=== PATIENT | male | born 1980 | race Hispanic/Latino ===

== ENCOUNTER 2016-08-27 16:59 | Inpatient (IN) | payer MEDICAID ==
[2016-08-27 17:02] VITALS: BMI 36.2
[2016-08-27] MEDS ORDERED: Sodium Chloride 0.9% 1,000 ML IV STA (18:11)
--- NOTE | 2016-08-27 18:21 | ED PDOC ---
Arrival/HPI - General Chief Complaint: Lower Extremity Problem/Injury Time Seen by Provider: 08/27/16 17:04 Historian: Patient - History of Present Illness Narrative History of Present Illness (Text): 08/27/16 18:02 A 36 year old male, who denies any significant past medical history, presents to the emergency department complaining of a infection to the left hidalgo. Patient reports 1 week ago he had 2 small blisters, which resembled a burn but then after two days the left hidalgo started to became red, painful and swollen. He notes swelling spread downwards into the left foot and it began to drain a discharge. He denies any fever, chills, chest pain, shortness of breath, abdominal pain, urinary symptoms or any other complaints. Patient does not believe he was bite by any insects but has been taking his mother's zyvox x 4-5 days. Denies IV drug use. PMD: Dr. Brady Time/Duration: 1 week Symptom Onset: Gradual Symptom Course: Worsening Quality: Other Activities at Onset: Rest Context: Home Past Medical History - Provider Review Nursing Documentation Reviewed: Yes - Infectious Disease Hx of Infectious Diseases: None - Cardiac Hx Cardiac Disorders: No - Pulmonary Hx Respiratory Disorders: Yes Hx Pneumonia: Yes (as a child) - Neurological Hx Neurological Disorder: No - HEENT Hx HEENT Disorder: No - Renal Hx Renal Disorder: No - Endocrine/Metabolic Hx Endocrine Disorders: No - Hematological/Oncological Hx Blood Disorders: No - Integumentary Hx Dermatological Disorder: No - Musculoskeletal/Rheumatological Hx Musculoskeletal Disorders: No - Gastrointestinal Hx Gastrointestinal Disorders: No - Genitourinary/Gynecological Hx Genitourinary Disorders: No - Psychiatric Hx Psychophysiologic Disorder: No Hx Substance Use: No - Anesthesia Hx Anesthesia: No Family/Social History - Physician Review Nursing Documentation Reviewed: Yes Family/Social History: Unknown Family HX Smoking Status: Former Smoker Hx Alcohol Use: Yes Frequency of alcohol use: Socially Hx Substance Use: No Allergies/Home Meds Allergies/Adverse Reactions: Allergies No Known Allergies Allergy (Verified 08/27/16 17:02) Home Medications: Home Meds Medication Instructions Recorded Confirmed No Known Home Med 08/27/16 08/27/16 Review of Systems - Physician Review All systems were reviewed & negative as marked: Yes - Review of Systems Constitutional: absent: Fevers Respiratory: absent: SOB Cardiovascular: absent: Chest Pain Gastrointestinal: absent: Abdominal Pain Genitourinary Male: absent: Dysuria, Frequency, Hematuria, Urinary Output Changes Skin: Other (infection to the left calf) Physical Exam Vital Signs Reviewed: Yes Vital Signs Temp Pulse Resp BP Pulse Ox 08/27/16 18:31 99.5 F 08/27/16 17:08 98.8 F 105 H 18 179/112 H 98 Temperature: Afebrile Blood Pressure: Hypertensive Pulse: Tachycardic Respiratory Rate: Normal Appearance: Positive for: Well-Appearing, Non-Toxic, Comfortable Pain Distress: None Mental Status: Positive for: Alert and Oriented X 3 - Systems Exam Head: Present: Atraumatic, Normocephalic Pupils: Present: PERRL Conjunctiva: Present: Normal Mouth: Present: Moist Mucous Membranes Pharnyx: Present: Normal. No: ERYTHEMA, EXUDATE Neck: Present: Normal Range of Motion Respiratory/Chest: Present: Clear to Auscultation, Good Air Exchange. No: Respiratory Distress, Accessory Muscle Use Cardiovascular: Present: Regular Rate and Rhythm, Normal S1, S2. No: Murmurs Abdomen: Present: Normal Bowel Sounds. No: Tenderness, Distention, Peritoneal Signs Back: Present: Normal Inspection Upper Extremity: Present: Normal Inspection. No: Cyanosis, Edema Lower Extremity: Present: NORMAL PULSES, Normal ROM, Tenderness, Swelling, Erythema, Other (There is an area of erythema with tenderness of mid left hidalgo with drainage of pus laterally; the foot is warm, swollen, erythematous, and tender) Neurological: Present: GCS=15, CN II-XII Intact, Speech Normal Skin: Present: Warm, Dry, Normal Color. No: Rashes Psychiatric: Present: Alert, Oriented x 3, Normal Insight, Normal Concentration Medical Decision Making ED Course and Treatment: 08/27/16 18:02 Impression: A 36 year old male with infection to the left calf. Differential Diagnosis include but are not limited to: cellulitis vs abscess vs DVT Plan: -- EKG -- Chest X-ray -- Duplex left lower extremity -- Left foot X-ray -- Left tibia fibula X-ray -- Labs -- Urinalysis -- IV Fluids -- Reassess and disposition Progress Notes: 08/27/16 17:37 LE dopplers: negative for DVT XR: no acute disease, as read by me 08/27/16 19:50 Patient with noted history presenting with cellulitis, having essentially failed outpatient antibiotics therapy, as he took his mother's zyvox. Sed rate is 64; other labs are nondiagnostic. His lactic acid normal, so he does not fit code sepsis criteria. Needs admission for iv antibiotics - discussed with Dr. Ramos. Case also discussed with medical surgical tech for consult for abscess. - Lab Interpretations Lab Results: 08/27/16 18:00 08/27/16 18:00 Lab Results 08/27/16 18:00: Urine Opiates Screen Positive H, Urine Methadone Screen Negative , Ur Barbiturates Screen Negative, Ur Phencyclidine Scrn Negative, Ur Amphetamines Screen Negative, U Benzodiazepines Scrn Positive H, U Oth Cocaine Metabols Negative, U Cannabinoids Screen Negative 08/27/16 18:00: Sodium 138, Chloride 98, Potassium 4.4, Carbon Dioxide 31, Anion Gap 13, BUN 7, Creatinine 0.7, Est GFR ( Amer) > 60, Est GFR (Non- Af Amer) > 60, Random Glucose 177 H, Calcium 9.5, Phosphorus 3.6, Magnesium 2.0 , Total Bilirubin 0.8, AST 43, ALT 40, Alkaline Phosphatase 48, Total Protein 8.7 H, Albumin 4.7, Globulin 4.0, Albumin/Globulin Ratio 1.2, Lipase 71 08/27/16 18:00: pO2 53, VBG pH 7.40, VBG pCO2 52.0, VBG HCO3 32.2 H, VBG Total CO2 33.8 H, VBG O2 Sat (Calc) 91.5 H, VBG Base Excess 6.0 H, VBG Potassium 4.4, Sodium 138.0, Chloride 101.0, Glucose 185 H, Lactate 1.1, FiO2 21.0, Venous Blood Potassium 4.4 08/27/16 18:00: Urine Color Yellow, Urine Appearance Clear, Urine pH 6.5, Ur Specific [place] 1.010, Urine Protein Negative, Urine Glucose (UA) Negative, Urine Ketones Trace H, Urine Blood Large H, Urine Nitrate Negative, Urine Bilirubin Negative, Urine Urobilinogen 0.2, Ur Leukocyte Esterase Negative, Urine RBC 25 - 30, Urine WBC 1 - 3, Ur Epithelial Cells 0 - 2, Amorphous Sediment Trace, Urine Bacteria Many, Urine Other Fiber 08/27/16 18:00: PT 11.3, INR 1.05, APTT 26.9 08/27/16 18:00: WBC 3.0 L, RBC 3.92, Hgb 12.6 L, Hct 36.5 L, MCV 93.1, MCH 32.1 , MCHC 34.5, RDW 11.8, Plt Count 237, MPV 9.6, Gran % 47.7 L, Lymph % (Auto) 23.2, [place] % (Auto) 9.9 H, Eos % (Auto) 17.9 H, Baso % (Auto) 1.3, Gran # 1.44, Lymph # 0.7 L, [place] # 0.3, Eos # 0.5, Baso # 0.04, ESR 64 H I have reviewed the lab results: Yes - RAD Interpretation Radiology Orders: 08/27/16 18:14 CHEST TWO VIEWS (PA/LAT) [RAD] Stat 08/27/16 18:15 FOOT LEFT 3 VIEWS ROUTINE [RAD] Stat TIBIA FIBULA LEFT [RAD] Stat 08/27/16 18:16 DUPLEX LOWER EXTRM VEIN LEFT [US] Stat - Medication Orders Current Medication Orders: Acetaminophen (Tylenol 325 Mg Supp) 325 mg RC Q6 PRN PRN Reason: Fever >100.4 F Albuterol Sulfate (Albuterol 0.083% Inhal [place] (2.5 Mg/3 Ml) Ud) 2.5 mg IH Q2H PRN PRN Reason: Shortness of Breath Famotidine (Pepcid) 20 mg PO BID GWENDOLYN Vancomycin HCl (Vancomycin 1gm) 1 gm in 250 mls @ 133.333 mls/hr IVPB STAT STA PRN Reason: Protocol Stop: 08/27/16 20:24 Last Admin: 08/27/16 19:54 Dose: 133.333 mls/hr Folic Acid 1 mg/ Sodium (Chloride) 50.2 mls @ 200 mls/hr IV DAILY GWENDOLYN Ibuprofen (Motrin Tab) 600 mg PO Q6H PRN PRN Reason: Pain, Mild (1-3) Insulin Human Lispro (Humalog) 0 units SC ACHS GWENDOLYN PRN Reason: Protocol Lisinopril (Zestril) 10 mg PO DAILY GWENDOLYN Thiamine HCl (Vitamin B1 Inj) 100 mg IV DAILY GWENDOLYN Discontinued Medications Sodium Chloride (Sodium Chloride 0.9%) 1,000 mls @ 999 mls/hr IV .Q1H1M STA Stop: 08/27/16 19:11 Last Admin: 08/27/16 18:27 Dose: 999 mls/hr Vancomycin HCl 1 gm/ Sodium (Chloride) 250 mls @ 133.333 mls/hr IV STAT STA PRN Reason: Protocol Stop: 08/27/16 20:18 Last Admin: 08/27/16 19:56 Dose: Piperacillin Sod/Tazobactam Sod (Zosyn 3.375 In Ns 100ml) 100 mls @ 200 mls/hr IVPB STAT STA PRN Reason: Protocol Stop: 08/27/16 18:57 Last Admin: 08/27/16 18:40 Dose: 200 mls/hr - Scribe Statement The provider has reviewed the documentation as recorded by the Adriibjayme Staley Provider Scribe Attestation: All medical record entries made by the Scribe were at my direction and personally dictated by me. I have reviewed the chart and agree that the record accurately reflects my personal performance of the history, physical exam, medical decision making, and the department course for this patient. I have also personally directed, reviewed, and agree with the discharge instructions and disposition. Disposition/Present on Arrival - Present on Arrival Any Indicators Present on Arrival: No History of DVT/PE: No History of Uncontrolled Diabetes: No Urinary Catheter: No History of Decub. Ulcer: No History Surgical Site Infection Following: None - Disposition Have Diagnosis and Disposition been Completed?: Yes Diagnosis: Cellulitis of lower extremity Disposition: HOSPITALIZED Disposition Time: 19:45 Patient Plan: Admission Condition: FAIR Discharge Instructions (ExitCare): Cellulitis (ED) Referrals: Stuart Brady MD [Primary Care Provider] - Follow up with primary
[2016-08-27] MEDS ORDERED: Piperacillin/Tazobact 3.375 gm 100 ML IVPB STA (18:28)
[2016-08-27] MEDS ORDERED: Vancomycin 1gm in NS 250ml 1 GM/250 ML BAG IVPB STA (18:32)
[2016-08-27 18:34] LABS: PH,URINE 6.5 (4.7-8.0); URINE BILIRUBIN NEGATIVE (NEGATIVE); URINE BLOOD LARGE (NEGATIVE); URINE GLUCOSE (UA) NEGATIVE (NEGATIVE); URINE KETONE TRACE mg/dL (NEGATIVE); URINE LEUKOCYTE ESTERASE NEGATIVE Leu/uL (NEGATIVE); URINE PROTEIN NEGATIVE mg/dL (<30 mg/dL); URINE UROBILINOGEN 0.2 E.U./dL (<1 E.U./dL)
[2016-08-27 18:35] LABS: URINE APPEARANCE CLEAR (CLEAR); URINE COLOR YELLOW (YELLOW)
[2016-08-27 18:37] LABS: URINE BACTERIA MANY (NEG); URINE EPITHELIAL CELLS 0 - 2 /hpf (0-5); URINE RBC 25 - 30 /hpf (0-2)
[2016-08-27 18:38] LABS: BASO # 0.04 K/mm3 (0.0-2.0); BASO % 1.3 % (0.0-3.0); EOS # 0.5 (0.0-0.7); EOS % 17.9 % (1.5-5.0); GRAN # 1.44 (1.4-6.5); GRAN % 47.7 % (50.0-68.0); HEMATOCRIT 36.5 % (42.0-52.0); LYMPH # 0.7 (1.2-3.4); LYMPH % 23.2 % (22.0-35.0); MEAN CELL VOLUME 93.1 fL (80.0-105.0); MEAN CORPUSCULAR HEMOGLOBIN 32.1 pg (25.0-35.0); MEAN CORPUSCULAR HGB CONC 34.5 g/dl (31.0-37.0); MEAN PLATELET VOLUME 9.6 fl (7.0-11.0); MONO # 0.3 (0.1-0.6); MONO % 9.9 % (1.0-6.0); PLATELET COUNT 237 10^3/uL (120.0-450.0); RED CELL DISTRIBUTION WIDTH 11.8 % (11.5-14.5); URINE AMORPHOUS SEDIMENT TRACE
[2016-08-27 18:40] LABS: ADD MANUAL DIFF? NO
[2016-08-27 18:44] LABS: ALB/GLOB RATIO 1.2 (1.1-1.8); ALKALINE PHOSPHATASE 48 U/L (38-133); ALT/SGPT 40 U/L (7-56); AST/SGOT 43 U/L (15-59); BILIRUBIN,TOTAL 0.8 mg/dL (0.2-1.3); BLOOD UREA NITROGEN 7 mg/dL (7-21); CALCIUM 9.5 mg/dL (8.4-10.5); CARBON DIOXIDE 31 mmol/L (21-33); CHLORIDE 98 mmol/L (98-107); GFR AFRICAN-AMERICAN > 60; GLUCOSE,RANDOM 177 mg/dL (70-110); LIPASE 71 U/L (23-300); PHOSPHOROUS 3.6 mg/dL (2.5-4.5); POTASSIUM 4.4 mmol/L (3.6-5.0); SODIUM 138 mmol/L (132-148); TOTAL PROTEIN 8.7 g/dL (5.8-8.3)
[2016-08-27 18:47] LABS: INR 1.05 (0.93-1.08); PARTIAL THROMBOPLASTIN TIME 26.9 Seconds (23.7-30.8)
[2016-08-27] MEDS ORDERED: Albuterol 0.083% Inhal Sol (2.5 mg/3 mL) UD IH PRN (19:35)
[2016-08-27 19:41] LABS: ERYTHROCYTE SEDIMENTATION RATE 64 mm/hr (0.0-15.0)
--- NOTE | 2016-08-27 19:56 | CP.PCM.HP ---
Addendum entered and electronically signed by Maximo Haywood DO 08/27/16 20:15: Add to assessment: Anemia; new f/u iron/TIBC folate B12 Original Note: <Maximo Haywood - Last Filed: 08/27/16 19:52> History of Present Illness - History of Present Illness History of Present Illness: CC: LL Pain, swelling, and redness This patient is a 36yo M who has no Pmhx (has not been to the doctor in a long time) who is presenting for a 4d history of LLE swelling and redness. He noticed that he had a small boil on his anterior tibia which he started applying neosporin to, which did not help. His mother had some leftover Zyvox from her previous hospitalization which she lent to her son thinking it would help his infection. He took 2 doses of it. He also took percocet for the pain which he said helped. He denies all other drugs, alcohol, or risky sexual behavior. He states he has unlimited exercise tolerance, sleeps with 2 pillows, and does not wake up in the middle of the night gasping for air. He has been admitted to the hospital in the past, 2x for PNA many years ago. Currently denies any fevers/chills, HAWKINS, CP, SOB, abdominal pain, N/V/D, dysuria/freq/urg. Admits to lower extremity pain and swelling on the left side. Has been admitting to increasing urinary frequency over the past few months; and to feeling the need to "drink a lot of water" due to this. PMhx: None Meds: None Surgeries: none Allergies: none FamHx: DM, HTN on both sides. grandma w/ breast CA, ovarian CA, and lung CA Social: Lives at home with parents, unemployed, denies EtOH, illicit drugs but takes his mothers painkillers and antibiotics, denies risky sexual behavior Present on Admission - Present on Admission Any Indicators Present on Admission: No History of DVT/PE: No History of Uncontrolled Diabetes: No Urinary Catheter: No Decubitus Ulcer Present: No Past Patient History - Infectious Disease Hx of Infectious Diseases: None - Past Social History Smoking Status: Former Smoker - CARDIAC Hx Cardiac Disorders: No - PULMONARY Hx Respiratory Disorders: Yes Hx Pneumonia: Yes (as a child) - NEUROLOGICAL Hx Neurological Disorder: No - HEENT Hx HEENT Problems: No - RENAL Hx Chronic Kidney Disease: No - ENDOCRINE/METABOLIC Hx Endocrine Disorders: No - HEMATOLOGICAL/ONCOLOGICAL Hx Blood Disorders: No - INTEGUMENTARY Hx Dermatological Problems: No - MUSCULOSKELETAL/RHEUMATOLOGICAL Hx Musculoskeletal Disorders: No - GASTROINTESTINAL Hx Gastrointestinal Disorders: No - GENITOURINARY/GYNECOLOGICAL Hx Genitourinary Disorders: No - PSYCHIATRIC Hx Psychophysiologic Disorder: No Hx Substance Use: No - SURGICAL HISTORY Hx Surgeries: No - ANESTHESIA Hx Anesthesia: No Meds Allergies/Adverse Reactions: Allergies Allergy/AdvReac Type Severity Reaction Status Date / Time No Known Allergies Allergy Verified 08/27/16 17:02 Physical Exam - Constitutional Appears: Well, Non-toxic - Head Exam Head Exam: ATRAUMATIC, NORMAL INSPECTION - Eye Exam Eye Exam: EOMI - ENT Exam ENT Exam: Mucous Membranes Moist - Neck Exam Neck exam: Positive for: Full Rom. Negative for: Lymphadenopathy - Respiratory Exam Respiratory Exam: Clear to Auscultation Bilateral, NORMAL BREATHING PATTERN. absent: Rales, Rhonchi, Wheezes - Cardiovascular Exam Cardiovascular Exam: REGULAR RHYTHM, +S1, +S2 - GI/Abdominal Exam GI & Abdominal Exam: Normal Bowel Sounds, Soft. absent: Tenderness - Extremities Exam Extremities exam: Positive for: full ROM, joint swelling, normal capillary refill, pedal edema, pedal pulses present. Negative for: calf tenderness, normal inspection (there is esquisite tenderness on the anterior tibia of the left leg; fluctuance at site where 'boil' was, no pus is coming out, +4 pitting edema on the left, +1 on the right, pulses intact b/l with intact sensation), tenderness - Back Exam Back exam: NORMAL INSPECTION. absent: CVA tenderness (L), CVA tenderness (R) - Neurological Exam Neurological exam: Alert, Oriented x3 - Psychiatric Exam Psychiatric exam: Normal Affect - Skin Skin Exam: Warm Results - Vital Signs Recent Vital Signs: Last Vital Signs Temp 99.5 F 08/27/16 18:31 Pulse 105 H 08/27/16 17:08 Resp 18 08/27/16 17:08 BP 179/112 H 08/27/16 17:08 Pulse Ox 98 08/27/16 17:08 - Labs Result Diagrams: 08/27/16 18:00 08/27/16 18:00 Labs: Laboratory Results - last 24 hr 08/27/16 08/27/16 08/27/16 18:00 18:00 18:00 WBC 3.0 L RBC 3.92 Hgb 12.6 L Hct 36.5 L MCV 93.1 MCH 32.1 MCHC 34.5 RDW 11.8 Plt Count 237 MPV 9.6 Gran % 47.7 L Lymph % (Auto) 23.2 [place] % (Auto) 9.9 H Eos % (Auto) 17.9 H Baso % (Auto) 1.3 Gran # 1.44 Lymph # 0.7 L [place] # 0.3 Eos # 0.5 Baso # 0.04 ESR 64 H PT 11.3 INR 1.05 APTT 26.9 pO2 VBG pH VBG pCO2 VBG HCO3 VBG Total CO2 VBG O2 Sat (Calc) VBG Base Excess VBG Potassium Sodium Chloride Glucose Lactate FiO2 Potassium Carbon Dioxide Anion Gap BUN Creatinine Est GFR ( Amer) Est GFR (Non-Af Amer) Random Glucose Calcium Phosphorus Magnesium Total Bilirubin AST ALT Alkaline Phosphatase Total Protein Albumin Globulin Albumin/Globulin Ratio Lipase Venous Blood Potassium Urine Color Yellow Urine Appearance Clear Urine pH 6.5 Ur Specific [place] 1.010 Urine Protein Negative Urine Glucose (UA) Negative Urine Ketones Trace H Urine Blood Large H Urine Nitrate Negative Urine Bilirubin Negative Urine Urobilinogen 0.2 Ur Leukocyte Esterase Negative Urine RBC 25 - 30 Urine WBC 1 - 3 Ur Epithelial Cells 0 - 2 Amorphous Sediment Trace Urine Bacteria Many Urine Other Fiber Urine Opiates Screen Urine Methadone Screen Ur Barbiturates Screen Ur Phencyclidine Scrn Ur Amphetamines Screen U Benzodiazepines Scrn U Oth Cocaine Metabols U Cannabinoids Screen 08/27/16 08/27/16 08/27/16 18:00 18:00 18:00 WBC RBC Hgb Hct MCV MCH MCHC RDW Plt Count MPV Gran % Lymph % (Auto) [place] % (Auto) Eos % (Auto) Baso % (Auto) Gran # Lymph # [place] # Eos # Baso # ESR PT INR APTT pO2 53 VBG pH 7.40 VBG pCO2 52.0 VBG HCO3 32.2 H VBG Total CO2 33.8 H VBG O2 Sat (Calc) 91.5 H VBG Base Excess 6.0 H VBG Potassium 4.4 Sodium 138.0 138 Chloride 101.0 98 Glucose 185 H Lactate 1.1 FiO2 21.0 Potassium 4.4 Carbon Dioxide 31 Anion Gap 13 BUN 7 Creatinine 0.7 Est GFR ( Amer) > 60 Est GFR (Non-Af Amer) > 60 Random Glucose 177 H Calcium 9.5 Phosphorus 3.6 Magnesium 2.0 Total Bilirubin 0.8 AST 43 ALT 40 Alkaline Phosphatase 48 Total Protein 8.7 H Albumin 4.7 Globulin 4.0 Albumin/Globulin Ratio 1.2 Lipase 71 Venous Blood Potassium 4.4 Urine Color Urine Appearance Urine pH Ur Specific [place] Urine Protein Urine Glucose (UA) Urine Ketones Urine Blood Urine Nitrate Urine Bilirubin Urine Urobilinogen Ur Leukocyte Esterase Urine RBC Urine WBC Ur Epithelial Cells Amorphous Sediment Urine Bacteria Urine Other Urine Opiates Screen Positive H Urine Methadone Screen Negative Ur Barbiturates Screen Negative Ur Phencyclidine Scrn Negative Ur Amphetamines Screen Negative U Benzodiazepines Scrn Positive H U Oth Cocaine Metabols Negative U Cannabinoids Screen Negative Assessment & Plan - Assessment and Plan (Free Text) Assessment: 36yo M admitted for Sepsis 2/2 to Cellulitis of L Lower Extrem Sepsis 2/2 to Cellulitis/Abscess of L Lower Extrem -WBC 3.0, Tachycardic to 105, and sign of infection on exam -Lac 1.1 -ESR 64 -glucuose elevated on exam and with complaints of DM with strong family history ; will treat with Vanc/Zosyn -f/u lower extrem duplex; r/o abscess and DVT -f/u blood cultures -ID Consult; Dr. Wing; f/u recs -Dr. Garland; Gen Surg; f/u recs; will likely need to be drained Likely HTN??? -start lisinopril 10mg tomorrow -PRN PO Hydralazine for BP over 175/95 -f/u echo; b/l lower extrem swollen -f/u BNP Likely DM -RISS; sugar was 180 -f/u HbA1C Proph Pepcid Lovenox Heart Healthy Diet Physical Therapy Eval Case discussed with Dr. Rachel Haywood PGY1 Night Float Decision To Admit - Pt Status Changed To: Hospital Disposition Of: Inpatient Admission - Admit Certification Admit to Inpatient:: After my assessment, the patient will require hospitalization for at least two midnights. This is because of the severity of symptoms shown, intensity of services needed, and/or the medical risk in this patient being treated as an outpatient. - . Bed Request Type: Med/Surg Admitting Physician: Alex Ramos <Alex Ramos - Last Filed: 08/27/16 20:22> Results - Vital Signs Recent Vital Signs: Last Vital Signs Temp 99.5 F 08/27/16 18:31 Pulse 85 08/27/16 18:40 Resp 18 08/27/16 18:40 BP 155/99 H 08/27/16 18:40 Pulse Ox 98 08/27/16 18:40 - Labs Result Diagrams: 08/27/16 18:00 08/27/16 18:00 Attending/Attestation - Attestation I have personally seen and examined this patient.: Yes I have fully participated in the care of the patient.: Yes I have reviewed all pertinent clinical information: Yes
--- NOTE | 2016-08-27 22:01 | CARD ---
APPROVED REPORT EKG Measurement Heart [id number] <Conclusion> Sinus tachycardia Otherwise normal ECG
--- NOTE | 2016-08-27 22:21 | CP.PCM.CON ---
History of Present Illness - History of Present Illness History of Present Illness: General Surgery Consult Re: LLE cellulitis and abscess HPI: 36M presented to ED infection to the left hidalgo for 1 week. Started as 2 small blisters. After 2 days, an area more lateral to the blisters started to get erythematous, painful and edematous. It began to have bloody discharge with some pus. Denies Trauma or insect bite. He tried antibacterial creams and old zyvox of his mothers without improvement. Denies F/C, SOB, chest pain, abd pain , urinary symptoms. PMH: Denies PSH: Denies SH: Denies tobacco or drug use. Occasional EtOH use All: Denies Meds: Denies Review of Systems - Review of Systems All systems: reviewed and no additional remarkable complaints except (as per HPI ) Past Patient History - Infectious Disease Hx of Infectious Diseases: None - Past Social History Smoking Status: Former Smoker - CARDIAC Hx Cardiac Disorders: No - PULMONARY Hx Respiratory Disorders: Yes Hx Pneumonia: Yes (as a child) - NEUROLOGICAL Hx Neurological Disorder: No - HEENT Hx HEENT Problems: No - RENAL Hx Chronic Kidney Disease: No - ENDOCRINE/METABOLIC Hx Endocrine Disorders: No - HEMATOLOGICAL/ONCOLOGICAL Hx Blood Disorders: No - INTEGUMENTARY Hx Dermatological Problems: No - MUSCULOSKELETAL/RHEUMATOLOGICAL Hx Musculoskeletal Disorders: No - GASTROINTESTINAL Hx Gastrointestinal Disorders: No - GENITOURINARY/GYNECOLOGICAL Hx Genitourinary Disorders: No - PSYCHIATRIC Hx Psychophysiologic Disorder: No Hx Substance Use: No - SURGICAL HISTORY Hx Surgeries: No - ANESTHESIA Hx Anesthesia: No Meds Allergies/Adverse Reactions: Allergies Allergy/AdvReac Type Severity Reaction Status Date / Time No Known Allergies Allergy Verified 08/27/16 17:02 - Medications Medications: Current Medications Acetaminophen (Tylenol 325 Mg Supp) 325 mg RC Q6 PRN PRN Reason: Fever >100.4 F Albuterol Sulfate (Albuterol 0.083% Inhal [place] (2.5 Mg/3 Ml) Ud) 2.5 mg IH Q2H PRN PRN Reason: Shortness of Breath Enoxaparin Sodium (Lovenox) 40 mg SC DAILY GWENDOLYN PRN Reason: Protocol Famotidine (Pepcid) 20 mg PO BID GWENDOLYN Hydralazine HCl (Apresoline) 25 mg PO Q4H PRN PRN Reason: high BP Folic Acid 1 mg/ Sodium (Chloride) 50.2 mls @ 200 mls/hr IV DAILY [facility] Piperacillin Sod/Tazobactam Sod (Zosyn 2.25 Gm In 0.9% 100 Ml) 2.25 gm in 100 mls @ 100 mls/hr IVPB Q6 GWENDOLYN PRN Reason: Protocol Stop: 08/28/16 06:59 Vancomycin HCl (Vancomycin 1gm) 1 gm in 250 mls @ 167 mls/hr IVPB 0600,1800 [facility] Ibuprofen (Motrin Tab) 600 mg PO Q6H PRN PRN Reason: Pain, Mild (1-3) Insulin Human Lispro (Humalog) 0 units SC ACHS GWENDOLYN PRN Reason: Protocol Lisinopril (Zestril) 10 mg PO DAILY GWENDOLNY Ondansetron HCl (Zofran Inj) 4 mg IVP Q6H PRN PRN Reason: Nausea/Vomiting Thiamine HCl (Vitamin B1 Tab) 100 mg PO DAILY [facility] Physical Exam - Constitutional Appears: Non-toxic, No Acute Distress - Head Exam Head Exam: ATRAUMATIC, NORMOCEPHALIC - Eye Exam Eye Exam: EOMI. absent: Scleral icterus - ENT Exam ENT Exam: Mucous Membranes Moist Additional comments: trachea midline - Neck Exam Neck exam: Positive for: Full Rom - Respiratory Exam Respiratory Exam: NORMAL BREATHING PATTERN. absent: Respiratory Distress - Cardiovascular Exam Cardiovascular Exam: RRR, +S1, +S2 - GI/Abdominal Exam GI & Abdominal Exam: Soft. absent: Distended, Tenderness - Rectal Exam Rectal Exam: Deferred - Extremities Exam Extremities exam: Positive for: normal capillary refill, pedal edema (L > R), tenderness (of lateral L hidalgo), pedal pulses present Additional comments: 4cm area of fluctuance 8cm area of induration. Clear fluid with white chunks expressed. area of erythema marked from below knee to ankle. - Neurological Exam Neurological exam: Alert, Oriented x3 - Psychiatric Exam Psychiatric exam: Normal Affect, Normal Mood - Skin Skin Exam: Dry, Warm Results - Vital Signs Recent Vital Signs: Last Vital Signs Temp 99.5 F 08/27/16 18:31 Pulse 80 08/27/16 21:03 Resp 17 08/27/16 21:03 BP 154/93 H 08/27/16 21:03 Pulse Ox 99 08/27/16 21:03 - Labs Result Diagrams: 08/27/16 18:00 08/27/16 18:00 - Imaging and Cardiology US - LLE Status: Image reviewed by me Assessment & Plan - Assessment and Plan (Free Text) Assessment: 36M with LLE cellulitis and abscess Plan: Warm compresses IV abx Monitor wound Analgesia Zofran F/U wound culture Attempted Needle aspiration - no pus found D/W Dr. Christofer Lau PGY3
[2016-08-27] MEDS ORDERED: DiphenhydrAMINE 50 mg/ml Inj IVP STA (22:46)
[2016-08-28] MEDS: Insulin Lispro 1 UNITS/0.01 ML SC SCH ×3 (00:07→12:27)
[2016-08-28] MEDS: Piperacillin/Tazobact 2.25gm 2.25 GM/100 ML BAG IVPB SCH ×2 (01:08→06:19)
[2016-08-28] MEDS: Vancomycin 1gm in NS 250ml 1 GM/250 ML BAG IVPB SCH ×2 (06:19→17:46)
[2016-08-28 06:44] LABS: ADD MANUAL DIFF? NO
[2016-08-28 06:48] LABS: BASO # 0.03 K/mm3 (0.0-2.0); BASO % 0.9 % (0.0-3.0); EOS # 0.3 (0.0-0.7); EOS % 9.2 % (1.5-5.0); GRAN # 1.62 (1.4-6.5); GRAN % 48.2 % (50.0-68.0); HEMATOCRIT 33.1 % (42.0-52.0); LYMPH % 29.5 % (22.0-35.0); MEAN CELL VOLUME 92.5 fL (80.0-105.0); MEAN CORPUSCULAR HEMOGLOBIN 32.1 pg (25.0-35.0); MEAN CORPUSCULAR HGB CONC 34.7 g/dl (31.0-37.0); MEAN PLATELET VOLUME 9.1 fl (7.0-11.0); MONO # 0.4 (0.1-0.6); MONO % 12.2 % (1.0-6.0); PLATELET COUNT 217 10^3/uL (120.0-450.0); RED CELL DISTRIBUTION WIDTH 11.6 % (11.5-14.5); WHITE BLOOD COUNT 3.4 10^3/ul (4.5-11.0)
[2016-08-28 07:08] LABS: IRON 112 ug/dL (45-180)
--- NOTE | 2016-08-28 07:56 | RAD ---
PROCEDURE: Radiographs of the left tibia and fibula. HISTORY: L tib/fib infection COMPARISON: None available. TECHNIQUE: Frontal and lateral views obtained. FINDINGS: BONES: No fracture or destructive lesion. JOINT SPACES: Unremarkable. OTHER FINDINGS: Circumferential lower leg subcutaneous reticulated edema. Both lymph edema and cellulitis is consistent with this. No gas-forming cellulitis suggested. IMPRESSION: Subcutaneous diffuse circumferential edema -lymphedema and/or cellulitis. Periosteal reaction seen to suggest osteomyelitis. No gas-forming cellulitis
--- NOTE | 2016-08-28 07:57 | RAD ---
HISTORY: sepsis COMPARISON: No prior. TECHNIQUE: Chest PA and lateral FINDINGS: LUNGS: No active pulmonary disease. PLEURA: No significant pleural effusion identified. No pneumothorax apparent. CARDIOVASCULAR: Normal. OSSEOUS STRUCTURES: No significant abnormalities. VISUALIZED UPPER ABDOMEN: Normal. OTHER FINDINGS: None. IMPRESSION: No active disease.
--- NOTE | 2016-08-28 07:58 | RAD ---
PROCEDURE: Left Foot Radiographs. HISTORY: L foot infection COMPARISON: None. FINDINGS: BONES: Normal. No fracture. No periosteal reaction to suggest osteomyelitis JOINTS: Normal. SOFT TISSUES: Marked dorsal soft tissue swelling mid and forefoot lower leg subcutaneous edema also suggested OTHER FINDINGS: None. IMPRESSION: No periosteal reaction to suggest osteomyelitis. No gas-forming cellulitis. Extensive and diffuse soft tissue swelling most notable dorsum midfoot
[2016-08-28] MEDS ORDERED: Vancomycin 1 g Inj IVPB SCH (08:00)
[2016-08-28 08:03] LABS: ALB/GLOB RATIO 1.1 (1.1-1.8); ALKALINE PHOSPHATASE 38 U/L (38-133); ALT/SGPT 27 U/L (7-56); AST/SGOT 28 U/L (15-59); BILIRUBIN,TOTAL 0.6 mg/dL (0.2-1.3); BLOOD UREA NITROGEN 5 mg/dL (7-21); CALCIUM 8.7 mg/dL (8.4-10.5); CARBON DIOXIDE 30 mmol/L (21-33); CHLORIDE 101 mmol/L (98-107); GFR AFRICAN-AMERICAN > 60; GLUCOSE,RANDOM 137 mg/dL (70-110); POTASSIUM 4.2 mmol/L (3.6-5.0); SODIUM 141 mmol/L (132-148); TOTAL PROTEIN 7.2 g/dL (5.8-8.3)
[2016-08-28] MEDS ORDERED: Lidocaine 1% Inj (20ml) IJ STA (09:03)
--- NOTE | 2016-08-28 09:17 | US ---
PROCEDURE: Left lower extremity venous US HISTORY: Leg pain and swelling. Evaluate for DVT. PHYSICIAN(S): Lee Cooney MD. TECHNIQUE: Duplex sonography and color-flow Doppler with graded compression were used to evaluate the deep venous system of the left lower extremity. FINDINGS: The visualized deep venous system of the left lower extremity is sonographically normal and compressible. Normal wave forms and augmentation are seen. There is no sonographic evidence for deep venous thrombosis in the visualized segments of the left lower extremity. There is a 2.5 cm hypoechoic lymph node in the left inguinal area IMPRESSION: 1. No sonographic evidence for deep venous thrombosis in the visualized segments of the left lower extremity.
[2016-08-28] MEDS ORDERED: Thiamine 100 mg/ml Inj IV SCH (10:00)
[2016-08-28] MEDS: Folic Acid 1 MG in Sodium Chloride 0.9% 50 ML IV SCH (10:11)
[2016-08-28] MEDS: Enoxaparin 40 mg Syringe SC SCH (10:11)
--- NOTE | 2016-08-28 11:10 | CP.PCM.PN ---
Subjective - Date & Time of Evaluation Date of Evaluation: 08/28/16 Time of Evaluation: 08:05 - Subjective Subjective: General surgery progress note for Dr. Beaulieu Patient seen and examined at bedside. No acute events overnight. Patient reports the swelling and redness has improved slightly, but still complains of pain. Denies headache, fever, chills, shortness of breath, chest pain, nausea, vomiting, diarrhea, or urinary symptoms. Objective - Vital Signs/Intake and Output Vital Signs (last 24 hours): Temp Pulse Resp BP Pulse Ox 98.6 F 97 H 20 160/92 H 97 08/28/16 07:46 08/28/16 10:12 08/28/16 07:46 08/28/16 10:12 08/28/16 07:46 Intake and Output: 08/28/16 08/28/16 06:59 18:59 Intake Total 240 Output Total 300 Balance -60 - Medications Medications: Current Medications Acetaminophen (Tylenol 325 Mg Supp) 325 mg RC Q6 PRN PRN Reason: Fever >100.4 F Albuterol Sulfate (Albuterol 0.083% Inhal Lindsay (2.5 Mg/3 Ml) Ud) 2.5 mg IH Q2H PRN PRN Reason: Shortness of Breath Enoxaparin Sodium (Lovenox) 40 mg SC DAILY [facility] PRN Reason: Protocol Last Admin: 08/28/16 10:11 Dose: 40 mg Famotidine (Pepcid) 20 mg PO BID [facility] Last Admin: 08/28/16 10:12 Dose: 20 mg Hydralazine HCl (Apresoline) 25 mg PO Q4H PRN PRN Reason: high BP Folic Acid 1 mg/ Sodium (Chloride) 50.2 mls @ 200 mls/hr IV DAILY [facility] Last Admin: 08/28/16 10:11 Dose: 200 mls/hr Vancomycin HCl (Vancomycin 1gm) 1 gm in 250 mls @ 167 mls/hr IVPB 0600,1800 [facility] Last Admin: 08/28/16 06:19 Dose: 167 mls/hr Piperacillin Sod/Tazobactam Sod (Zosyn 3.375 In Ns 100ml) 100 mls @ 200 mls/hr IVPB Q6 [facility] PRN Reason: Protocol Ibuprofen (Motrin Tab) 600 mg PO Q6H PRN PRN Reason: Pain, Mild (1-3) Insulin Human Lispro (Humalog) 0 units SC ACHS [facility] PRN Reason: Protocol Last Admin: 08/28/16 08:18 Dose: Not Given Lisinopril (Zestril) 10 mg PO DAILY [facility] Last Admin: 08/28/16 10:12 Dose: 10 mg Ondansetron HCl (Zofran Inj) 4 mg IVP Q6H PRN PRN Reason: Nausea/Vomiting Thiamine HCl (Vitamin B1 Tab) 100 mg PO DAILY [facility] Last Admin: 08/28/16 10:12 Dose: 100 mg - Labs Labs: 08/28/16 06:30 08/28/16 07:15 PT 11.3 Seconds (9.9-11.8) 08/27/16 18:00 INR 1.05 (0.93-1.08) 08/27/16 18:00 APTT 26.9 Seconds (23.7-30.8) 08/27/16 18:00 - Constitutional Appears: Non-toxic, No Acute Distress - Head Exam Head Exam: ATRAUMATIC, NORMAL INSPECTION - Eye Exam Eye Exam: EOMI, Normal appearance - ENT Exam ENT Exam: Mucous Membranes Moist - Respiratory Exam Respiratory Exam: NORMAL BREATHING PATTERN. absent: Respiratory Distress - Cardiovascular Exam Cardiovascular Exam: +S1, +S2 - GI/Abdominal Exam GI & Abdominal Exam: Soft. absent: Distended, Tenderness - Extremities Exam Extremities Exam: Normal Capillary Refill Additional comments: LLE erythema and swelling improved compared to marker tracings from yesterday. Area of induration appreciated. Minimal clear fluid drainage appreciated. area of erythema marked from below knee to ankle. - Neurological Exam Neurological Exam: Alert, Awake, Oriented x3 - Psychiatric Exam Psychiatric exam: Normal Affect, Normal Mood - Skin Skin Exam: Warm Assessment and Plan - Assessment and Plan (Free Text) Assessment: 36 male with LLE cellulitis and abscess Plan: -C/w warm compresses -C/w IV abx per ID -F/u wound culture -No pus found through needle aspiration -LE u/s showed no evidence of DVT -Medial management per primary team -Will d/w attending Dr. Beaulieu
[2016-08-28] MEDS: Piperacillin/Tazobact 3.375 gm 100 ML IVPB SCH ×2 (12:28→17:47)
[2016-08-28 12:59] LABS: FOLATE > 20.0 ng/mL
--- NOTE | 2016-08-28 14:09 | CP.PCM.PN ---
<Malou Katz - Last Filed: 08/28/16 14:55> Subjective - Date & Time of Evaluation Date of Evaluation: 08/28/16 Time of Evaluation: 08:00 - Subjective Subjective: Pt was seen and examined at bedside. No acute complaints at this time. No acute or adverse events overnight as per nursing staff. Pt states his pain is controlled, is tolerating po intake and is moving bowels and bladder regularly. Pt noted one episode of loose bm today. Pt denied fever, chills, sob, chest pains, abdominal pains, n/v/d/c or urinary symptoms. Pt admits to mild lle pain and swelling, however it is improved since yesterday. Objective - Vital Signs/Intake and Output Vital Signs (last 24 hours): Temp Pulse Resp BP Pulse Ox 98.6 F 97 H 20 160/92 H 97 08/28/16 07:46 08/28/16 10:12 08/28/16 07:46 08/28/16 10:12 08/28/16 07:46 Intake and Output: 08/28/16 08/28/16 06:59 18:59 Intake Total 240 780 Output Total 300 600 Balance -60 180 - Medications Medications: Current Medications Acetaminophen (Tylenol 325 Mg Supp) 325 mg RC Q6 PRN PRN Reason: Fever >100.4 F Albuterol Sulfate (Albuterol 0.083% Inhal Lindsay (2.5 Mg/3 Ml) Ud) 2.5 mg IH Q2H PRN PRN Reason: Shortness of Breath Enoxaparin Sodium (Lovenox) 40 mg SC DAILY [facility] PRN Reason: Protocol Last Admin: 08/28/16 10:11 Dose: 40 mg Famotidine (Pepcid) 20 mg PO BID [facility] Last Admin: 08/28/16 10:12 Dose: 20 mg Hydralazine HCl (Apresoline) 25 mg PO Q4H PRN PRN Reason: high BP Folic Acid 1 mg/ Sodium (Chloride) 50.2 mls @ 200 mls/hr IV DAILY [facility] Last Admin: 08/28/16 10:11 Dose: 200 mls/hr Vancomycin HCl (Vancomycin 1gm) 1 gm in 250 mls @ 167 mls/hr IVPB 0600,1800 [facility] Last Admin: 08/28/16 06:19 Dose: 167 mls/hr Piperacillin Sod/Tazobactam Sod (Zosyn 3.375 In Ns 100ml) 100 mls @ 200 mls/hr IVPB Q6 [facility] PRN Reason: Protocol Last Admin: 08/28/16 12:28 Dose: 200 mls/hr Ibuprofen (Motrin Tab) 600 mg PO Q6H PRN PRN Reason: Pain, Mild (1-3) Insulin Human Lispro (Humalog) 0 units SC ACHS [facility] PRN Reason: Protocol Last Admin: 08/28/16 12:27 Dose: 3 units Lisinopril (Zestril) 10 mg PO DAILY [facility] Last Admin: 08/28/16 10:12 Dose: 10 mg Ondansetron HCl (Zofran Inj) 4 mg IVP Q6H PRN PRN Reason: Nausea/Vomiting Thiamine HCl (Vitamin B1 Tab) 100 mg PO DAILY [facility] Last Admin: 08/28/16 10:12 Dose: 100 mg - Labs Labs: 08/28/16 06:30 08/28/16 07:15 PT 11.3 Seconds (9.9-11.8) 08/27/16 18:00 INR 1.05 (0.93-1.08) 08/27/16 18:00 APTT 26.9 Seconds (23.7-30.8) 08/27/16 18:00 - Constitutional Appears: No Acute Distress - Head Exam Head Exam: ATRAUMATIC, NORMAL INSPECTION, NORMOCEPHALIC - Eye Exam Eye Exam: EOMI, Normal appearance, PERRL Pupil Exam: NORMAL ACCOMODATION, PERRL - ENT Exam ENT Exam: Mucous Membranes Moist - Neck Exam Neck Exam: Full ROM, Normal Inspection. absent: Lymphadenopathy - Respiratory Exam Respiratory Exam: Clear to Ausculation Bilateral, NORMAL BREATHING PATTERN - Cardiovascular Exam Cardiovascular Exam: REGULAR RHYTHM, +S1, +S2. absent: Murmur - GI/Abdominal Exam GI & Abdominal Exam: Soft, Normal Bowel Sounds. absent: Tenderness - Extremities Exam Extremities Exam: Pedal Edema, Tenderness (lle, bandaged cdi) - Back Exam Back Exam: NORMAL INSPECTION - Neurological Exam Neurological Exam: Alert, Awake, CN II-XII Intact, Oriented x3 - Psychiatric Exam Psychiatric exam: Normal Affect, Normal Mood - Skin Skin Exam: Dry, Intact, Normal Color, Warm Assessment and Plan - Assessment and Plan (Free Text) Assessment: 36yo M admitted for Sepsis 2/2 to Cellulitis of L Lower Extremity Sepsis 2/2 to Cellulitis/Abscess of L Lower Extrem -WBC 3.0, Tachycardic to 105, and sign of infection on exam -Lac 1.1 -ESR 64 - Vanc/Zosyn -negative lower extrem duplex for dvt - f/u blood cultures and wound cultures -ID Consult; Dr. Wing; f/u recs -Dr. Garland; Gen Surg; warm compress and abx, needle aspiration did not demonstrate pus Diarrhea - Cdiff pending HTN -lisinopril 10mg -PRN PO Hydralazine for BP over 175/95 -f/u echo Likely DM -RISS -f/u HbA1C Proph Pepcid Lovenox Heart Healthy Diet Physical Therapy Eval Seen reviewed and discussed with attending <Doug Greene - Last Filed: 08/28/16 15:38> Objective - Vital Signs/Intake and Output Vital Signs (last 24 hours): Temp Pulse Resp BP Pulse Ox 98.6 F 97 H 20 160/92 H 97 08/28/16 07:46 08/28/16 10:12 08/28/16 07:46 08/28/16 10:12 08/28/16 07:46 Intake and Output: 08/28/16 08/28/16 06:59 18:59 Intake Total 240 780 Output Total 300 600 Balance -60 180 - Medications Medications: Current Medications Acetaminophen (Tylenol 325 Mg Supp) 325 mg RC Q6 PRN PRN Reason: Fever >100.4 F Albuterol Sulfate (Albuterol 0.083% Inhal Lindsay (2.5 Mg/3 Ml) Ud) 2.5 mg IH Q2H PRN PRN Reason: Shortness of Breath Enoxaparin Sodium (Lovenox) 40 mg SC DAILY [facility] PRN Reason: Protocol Last Admin: 08/28/16 10:11 Dose: 40 mg Famotidine (Pepcid) 20 mg PO BID [facility] Last Admin: 08/28/16 10:12 Dose: 20 mg Hydralazine HCl (Apresoline) 25 mg PO Q4H PRN PRN Reason: high BP Folic Acid 1 mg/ Sodium (Chloride) 50.2 mls @ 200 mls/hr IV DAILY [facility] Last Admin: 08/28/16 10:11 Dose: 200 mls/hr Vancomycin HCl (Vancomycin 1gm) 1 gm in 250 mls @ 167 mls/hr IVPB 0600,1800 [facility] Last Admin: 08/28/16 06:19 Dose: 167 mls/hr Piperacillin Sod/Tazobactam Sod (Zosyn 3.375 In Ns 100ml) 100 mls @ 200 mls/hr IVPB Q6 [facility] PRN Reason: Protocol Last Admin: 08/28/16 12:28 Dose: 200 mls/hr Ibuprofen (Motrin Tab) 600 mg PO Q6H PRN PRN Reason: Pain, Mild (1-3) Insulin Human Lispro (Humalog Low) 0 units SC ACHS [facility] PRN Reason: Protocol Lisinopril (Zestril) 10 mg PO DAILY [facility] Last Admin: 08/28/16 10:12 Dose: 10 mg Metformin HCl (Glucophage) 500 mg PO BID [facility] Ondansetron HCl (Zofran Inj) 4 mg IVP Q6H PRN PRN Reason: Nausea/Vomiting Thiamine HCl (Vitamin B1 Tab) 100 mg PO DAILY [facility] Last Admin: 08/28/16 10:12 Dose: 100 mg - Labs Labs: 08/28/16 06:30 08/28/16 07:15 PT 11.3 Seconds (9.9-11.8) 08/27/16 18:00 INR 1.05 (0.93-1.08) 08/27/16 18:00 APTT 26.9 Seconds (23.7-30.8) 08/27/16 18:00 Attending/Attestation - Attestation I have personally seen and examined this patient.: Yes I have fully participated in the care of the patient.: Yes I have reviewed all pertinent clinical information, including history, physical exam and plan: Yes Notes (Text): 08/28/16 15:32 36 year old male who is admitted with LLE cellulitis/abscess. Continue with iv antibiotics as per ID. Surgery evaluation was appreciated; needle aspiration did not demonstrate any pus. LE doppler was negative. Xrays were reviewed. Continue with compresses and leg elevation. A1c is 9.1. He is started on glyburide and insulin ss. Diabetic education referral ordered. He is on lisinopril and hydralazine prn for hypertension. Stool for CDif is ordered for complaint of diarrhea. Doug Greene MD Hospitalist.
--- NOTE | 2016-08-28 17:17 | CP.PCM.PN ---
Subjective - Date & Time of Evaluation Date of Evaluation: 08/28/16 Time of Evaluation: 17:15 - Subjective Subjective: Patient consented for bedside I&D for Left Hidalgo abscess Objective - Vital Signs/Intake and Output Vital Signs (last 24 hours): Temp Pulse Resp BP Pulse Ox 99.4 F 90 20 159/91 H 98 08/28/16 16:00 08/28/16 16:36 08/28/16 16:00 08/28/16 16:36 08/28/16 16:00 Intake and Output: 08/28/16 08/28/16 06:59 18:59 Intake Total 240 780 Output Total 300 600 Balance -60 180 - Medications Medications: Current Medications Acetaminophen (Tylenol 325 Mg Supp) 325 mg RC Q6 PRN PRN Reason: Fever >100.4 F Albuterol Sulfate (Albuterol 0.083% Inhal Lindsay (2.5 Mg/3 Ml) Ud) 2.5 mg IH Q2H PRN PRN Reason: Shortness of Breath Enoxaparin Sodium (Lovenox) 40 mg SC DAILY [facility] PRN Reason: Protocol Last Admin: 08/28/16 10:11 Dose: 40 mg Famotidine (Pepcid) 20 mg PO BID [facility] Last Admin: 08/28/16 10:12 Dose: 20 mg Glyburide (Micronase) 5 mg PO 0800,1700 [facility] Last Admin: 08/28/16 16:36 Dose: 5 mg Hydralazine HCl (Apresoline) 25 mg PO Q4H PRN PRN Reason: high BP Last Admin: 08/28/16 16:36 Dose: 25 mg Folic Acid 1 mg/ Sodium (Chloride) 50.2 mls @ 200 mls/hr IV DAILY [facility] Last Admin: 08/28/16 10:11 Dose: 200 mls/hr Vancomycin HCl (Vancomycin 1gm) 1 gm in 250 mls @ 167 mls/hr IVPB 0600,1800 [facility] Last Admin: 08/28/16 06:19 Dose: 167 mls/hr Piperacillin Sod/Tazobactam Sod (Zosyn 3.375 In Ns 100ml) 100 mls @ 200 mls/hr IVPB Q6 [facility] PRN Reason: Protocol Last Admin: 08/28/16 12:28 Dose: 200 mls/hr Ibuprofen (Motrin Tab) 600 mg PO Q6H PRN PRN Reason: Pain, Mild (1-3) Insulin Human Lispro (Humalog Low) 0 units SC ACHS [facility] PRN Reason: Protocol Lisinopril (Zestril) 10 mg PO DAILY [facility] Last Admin: 08/28/16 10:12 Dose: 10 mg Ondansetron HCl (Zofran Inj) 4 mg IVP Q6H PRN PRN Reason: Nausea/Vomiting Thiamine HCl (Vitamin B1 Tab) 100 mg PO DAILY [facility] Last Admin: 08/28/16 10:12 Dose: 100 mg - Labs Labs: 08/28/16 06:30 08/28/16 07:15 PT 11.3 Seconds (9.9-11.8) 08/27/16 18:00 INR 1.05 (0.93-1.08) 08/27/16 18:00 APTT 26.9 Seconds (23.7-30.8) 08/27/16 18:00 Assessment and Plan - Assessment and Plan (Free Text) Assessment: 36 y/o male w/ Left hidalgo abscess Plan: -bedside I&D - Incision & Drainage Of Abscess Anesthesia: Lidocaine 1% Used During Procedure: Oxygen Prep Used: Betadine Procedure: Incised W/Scalpel Blade#: (11), Irrigated Cavity W/Saline, Probed To Break Up Loculations, Packed W/Gauze, Cultures Obtained And Sent To Lab
--- NOTE | 2016-08-28 17:28 | CP.PCM.CON ---
History of Present Illness - History of Present Illness History of Present Illness: Infectious Disease Consultation August 28, 2016 36 yo male with two small boils appearing in the upper left lower leg/ anterior tibia that worsened despite use of Neosporin and special dressing his father had used for healing his prior wounds. Patient's mother had leftover Azithromycin for antibiotics that he took six doses of at 600mg a dose. The patient developed increasing swelling, erythema, and a bump lateral of the two boils. The patient also developed increasing swelling and erythema of the leg below the boils. The patient has not seen a doctor for many many years now since he was 23. PMHx: No known medical history. Noted to have high blood pressure and anemia during this hospitalization PSHx: tooth extractions. Allergies: NKDA Social Hx: NO tobacco, illicit drug use. Social EtOH. Currently Unemployed. Has a dog in the house. Active Medications Acetaminophen (Tylenol 325 Mg Supp) 325 mg RC Q6 PRN PRN Reason: Fever >100.4 F Albuterol Sulfate (Albuterol 0.083% Inhal Lindsay (2.5 Mg/3 Ml) Ud) 2.5 mg IH Q2H PRN PRN Reason: Shortness of Breath Enoxaparin Sodium (Lovenox) 40 mg SC DAILY [facility] PRN Reason: Protocol Last Admin: 08/28/16 10:11 Dose: 40 mg Famotidine (Pepcid) 20 mg PO BID [facility] Last Admin: 08/28/16 10:12 Dose: 20 mg Glyburide (Micronase) 5 mg PO 0800,1700 [facility] Last Admin: 08/28/16 16:36 Dose: 5 mg Hydralazine HCl (Apresoline) 25 mg PO Q4H PRN PRN Reason: high BP Last Admin: 08/28/16 16:36 Dose: 25 mg Folic Acid 1 mg/ Sodium (Chloride) 50.2 mls @ 200 mls/hr IV DAILY [facility] Last Admin: 08/28/16 10:11 Dose: 200 mls/hr Vancomycin HCl (Vancomycin 1gm) 1 gm in 250 mls @ 167 mls/hr IVPB 0600,1800 [facility] Last Admin: 08/28/16 06:19 Dose: 167 mls/hr Piperacillin Sod/Tazobactam Sod (Zosyn 3.375 In Ns 100ml) 100 mls @ 200 mls/hr IVPB Q6 [facility] PRN Reason: Protocol Last Admin: 08/28/16 12:28 Dose: 200 mls/hr Ibuprofen (Motrin Tab) 600 mg PO Q6H PRN PRN Reason: Pain, Mild (1-3) Insulin Human Lispro (Humalog Low) 0 units SC ACHS [facility] PRN Reason: Protocol Lisinopril (Zestril) 10 mg PO DAILY [facility] Last Admin: 08/28/16 10:12 Dose: 10 mg Ondansetron HCl (Zofran Inj) 4 mg IVP Q6H PRN PRN Reason: Nausea/Vomiting Thiamine HCl (Vitamin B1 Tab) 100 mg PO DAILY [facility] Last Admin: 08/28/16 10:12 Dose: 100 mg Family Hx: DM and HTN in mother and father. Breast, Ovarian, and Lung CA in grandmother. ROS: No fevers, chills, nausea, vomiting, diarrhea, headaches, dizziness, chest pain , abdominal pain, melena, hematuria, hematemesis, hematochezia, depression, anxiety. Past Patient History - Infectious Disease Hx of Infectious Diseases: None - Past Social History Smoking Status: Former Smoker - CARDIAC Hx Cardiac Disorders: No - PULMONARY Hx Respiratory Disorders: Yes Hx Emphysema: Yes (as a child) - NEUROLOGICAL Hx Neurological Disorder: No - HEENT Hx HEENT Problems: Yes Other/Comment: pt wears glasses - RENAL Hx Chronic Kidney Disease: No - ENDOCRINE/METABOLIC Hx Endocrine Disorders: Yes Hx Diabetes Mellitus Type 2: Yes - HEMATOLOGICAL/ONCOLOGICAL Hx Blood Disorders: No - INTEGUMENTARY Hx Dermatological Problems: No - MUSCULOSKELETAL/RHEUMATOLOGICAL Hx Musculoskeletal Disorders: No Hx Falls: No - GASTROINTESTINAL Hx Gastrointestinal Disorders: No - GENITOURINARY/GYNECOLOGICAL Hx Genitourinary Disorders: No - PSYCHIATRIC Hx Psychophysiologic Disorder: No Hx Substance Use: No - SURGICAL HISTORY Hx Surgeries: No - ANESTHESIA Hx Anesthesia: No Meds Allergies/Adverse Reactions: Allergies Allergy/AdvReac Type Severity Reaction Status Date / Time No Known Allergies Allergy Verified 08/27/16 17:02 - Medications Medications: Current Medications Acetaminophen (Tylenol 325 Mg Supp) 325 mg RC Q6 PRN PRN Reason: Fever >100.4 F Albuterol Sulfate (Albuterol 0.083% Inhal Lindsay (2.5 Mg/3 Ml) Ud) 2.5 mg IH Q2H PRN PRN Reason: Shortness of Breath Enoxaparin Sodium (Lovenox) 40 mg SC DAILY [facility] PRN Reason: Protocol Last Admin: 08/28/16 10:11 Dose: 40 mg Famotidine (Pepcid) 20 mg PO BID [facility] Last Admin: 08/28/16 10:12 Dose: 20 mg Glyburide (Micronase) 5 mg PO 0800,1700 [facility] Last Admin: 08/28/16 16:36 Dose: 5 mg Hydralazine HCl (Apresoline) 25 mg PO Q4H PRN PRN Reason: high BP Last Admin: 08/28/16 16:36 Dose: 25 mg Folic Acid 1 mg/ Sodium (Chloride) 50.2 mls @ 200 mls/hr IV DAILY [facility] Last Admin: 08/28/16 10:11 Dose: 200 mls/hr Vancomycin HCl (Vancomycin 1gm) 1 gm in 250 mls @ 167 mls/hr IVPB 0600,1800 [facility] Last Admin: 08/28/16 06:19 Dose: 167 mls/hr Piperacillin Sod/Tazobactam Sod (Zosyn 3.375 In Ns 100ml) 100 mls @ 200 mls/hr IVPB Q6 [facility] PRN Reason: Protocol Last Admin: 08/28/16 12:28 Dose: 200 mls/hr Ibuprofen (Motrin Tab) 600 mg PO Q6H PRN PRN Reason: Pain, Mild (1-3) Insulin Human Lispro (Humalog Low) 0 units SC ACHS [facility] PRN Reason: Protocol Lisinopril (Zestril) 10 mg PO DAILY [facility] Last Admin: 08/28/16 10:12 Dose: 10 mg Ondansetron HCl (Zofran Inj) 4 mg IVP Q6H PRN PRN Reason: Nausea/Vomiting Thiamine HCl (Vitamin B1 Tab) 100 mg PO DAILY [facility] Last Admin: 08/28/16 10:12 Dose: 100 mg Physical Exam - Constitutional Appears: Non-toxic, No Acute Distress - Head Exam Head Exam: ATRAUMATIC, NORMOCEPHALIC - Eye Exam Eye Exam: EOMI, PERRL Pupil Exam: NORMAL ACCOMODATION, PERRL - ENT Exam ENT Exam: Mucous Membranes Moist, Normal External Ear Exam, TM's Normal Bilaterally - Neck Exam Neck exam: Positive for: Full Rom, Normal Inspection - Respiratory Exam Respiratory Exam: Clear to Auscultation Bilateral, NORMAL BREATHING PATTERN. absent: Rales, Rhonchi, Wheezes - Cardiovascular Exam Cardiovascular Exam: REGULAR RHYTHM, RRR, +S1, +S2 - GI/Abdominal Exam GI & Abdominal Exam: Normal Bowel Sounds, Soft. absent: Distended, Tenderness - Extremities Exam Extremities exam: Positive for: full ROM Additional comments: left lower leg erythema and possible abscess on tissue over lateral anterior upper tibia. Increased warmth of the left lower lateral leg. - Neurological Exam Neurological exam: Alert, CN II-XII Intact, Normal Gait, Oriented x3 - Psychiatric Exam Psychiatric exam: Normal Affect, Normal Mood - Skin Additional comments: as per extremities exam. Results - Vital Signs Recent Vital Signs: Last Vital Signs Temp 99.4 F 08/28/16 16:00 Pulse 90 08/28/16 16:36 Resp 20 08/28/16 16:00 BP 159/91 H 08/28/16 16:36 Pulse Ox 98 08/28/16 16:00 - Labs Result Diagrams: 08/28/16 06:30 08/28/16 07:15 Labs: Laboratory Results - last 24 hr 08/28/16 08/28/16 08/28/16 06:30 06:30 06:30 WBC 3.4 L RBC 3.58 Hgb 11.5 L Hct 33.1 L MCV 92.5 MCH 32.1 MCHC 34.7 RDW 11.6 Plt Count 217 MPV 9.1 Gran % 48.2 L Lymph % (Auto) 29.5 Hunt % (Auto) 12.2 H Eos % (Auto) 9.2 H Baso % (Auto) 0.9 Gran # 1.62 Lymph # 1.0 L Hunt # 0.4 Eos # 0.3 Baso # 0.03 Sodium Potassium Chloride Carbon Dioxide Anion Gap BUN Creatinine Est GFR ( Amer) Est GFR (Non-Af Amer) Random Glucose Calcium Iron 112 TIBC 260 L % Saturation 43 Total Bilirubin AST ALT Alkaline Phosphatase Total Protein Albumin Globulin Albumin/Globulin Ratio Vitamin B12 571 Folate > 20.0 08/28/16 07:15 WBC RBC Hgb Hct MCV MCH MCHC RDW Plt Count MPV Gran % Lymph % (Auto) Hunt % (Auto) Eos % (Auto) Baso % (Auto) Gran # Lymph # Hunt # Eos # Baso # Sodium 141 Potassium 4.2 Chloride 101 Carbon Dioxide 30 Anion Gap 14 BUN 5 L Creatinine 0.6 Est GFR ( Amer) > 60 Est GFR (Non-Af Amer) > 60 Random Glucose 137 H Calcium 8.7 Iron TIBC % Saturation Total Bilirubin 0.6 AST 28 ALT 27 Alkaline Phosphatase 38 Total Protein 7.2 Albumin 3.8 Globulin 3.4 Albumin/Globulin Ratio 1.1 Vitamin B12 Folate Assessment & Plan - Assessment and Plan (Free Text) Assessment: 36 yo male with left lower leg cellulitis and abscess formation. I&D by surgery today with minimal drainage. On Vancomycin and Zosyn for antibiotic coverage at this time. The left leg appears to be improving. Supportive care. Awaiting cultures. Local wound care. No known prior medical history but patient has not seen a doctor in 13 years. The patient did take Azithromycin twice a day for 6 doses and used some wound supplies from his father in caring for the wound. Thank you for allowing me to participate in the care of the patient, we will follow with you.
[2016-08-28] MEDS: Insulin Lispro (humaLOG) LOW Coverage SC SCH ×2 (17:45→21:05)
[2016-08-29] MEDS: Vancomycin 1gm in NS 250ml 1 GM/250 ML BAG IVPB SCH ×2 (05:25→17:03)
[2016-08-29 06:26] LABS: ADD MANUAL DIFF? NO
[2016-08-29 07:17] LABS: BASO # 0.04 K/mm3 (0.0-2.0); BASO % 0.9 % (0.0-3.0); EOS # 0.1 (0.0-0.7); EOS % 2.1 % (1.5-5.0); GRAN % 59.1 % (50.0-68.0); HEMATOCRIT 33.3 % (42.0-52.0); LYMPH % 24.5 % (22.0-35.0); MEAN CELL VOLUME 90.7 fL (80.0-105.0); MEAN CORPUSCULAR HEMOGLOBIN 31.1 pg (25.0-35.0); MEAN CORPUSCULAR HGB CONC 34.2 g/dl (31.0-37.0); MEAN PLATELET VOLUME 9.1 fl (7.0-11.0); MONO # 0.6 (0.1-0.6); MONO % 13.4 % (1.0-6.0); PLATELET COUNT 245 10^3/uL (120.0-450.0); RED CELL DISTRIBUTION WIDTH 11.7 % (11.5-14.5); WHITE BLOOD COUNT 4.2 10^3/ul (4.5-11.0)
[2016-08-29 07:48] LABS: ALB/GLOB RATIO 1.2 (1.1-1.8); ALKALINE PHOSPHATASE 37 U/L (38-133); ALT/SGPT 29 U/L (7-56); AST/SGOT 55 U/L (15-59); BILIRUBIN,TOTAL 0.5 mg/dL (0.2-1.3); BLOOD UREA NITROGEN 6 mg/dL (7-21); CALCIUM 8.7 mg/dL (8.4-10.5); CARBON DIOXIDE 26 mmol/L (21-33); CHLORIDE 103 mmol/L (95-110); GFR AFRICAN-AMERICAN > 60; GLUCOSE,RANDOM 106 mg/dL (70-110); POTASSIUM 3.9 mmol/L (3.6-5.0); SODIUM 139 mmol/L (132-148); TOTAL PROTEIN 7.3 g/dL (5.8-8.3)
--- NOTE | 2016-08-29 08:07 | CP.PCM.PN ---
Subjective - Date & Time of Evaluation Date of Evaluation: 08/29/16 Time of Evaluation: 07:30 - Subjective Subjective: General Surgery Pt S&E, NAEO. Pt complaining of headache and diarrhea. LLE feeling much better. Objective - Vital Signs/Intake and Output Vital Signs (last 24 hours): Temp Pulse Resp BP Pulse Ox 97.8 F 84 20 143/60 97 08/29/16 07:30 08/29/16 07:30 08/29/16 07:30 08/29/16 07:30 08/29/16 07:30 Intake and Output: 08/29/16 08/29/16 06:59 18:59 Intake Total 1410 Balance 1410 - Medications Medications: Current Medications Acetaminophen (Tylenol 325 Mg Supp) 325 mg RC Q6 PRN PRN Reason: Fever >100.4 F Albuterol Sulfate (Albuterol 0.083% Inhal Lindsay (2.5 Mg/3 Ml) Ud) 2.5 mg IH Q2H PRN PRN Reason: Shortness of Breath Enoxaparin Sodium (Lovenox) 40 mg SC DAILY [facility] PRN Reason: Protocol Last Admin: 08/28/16 10:11 Dose: 40 mg Famotidine (Pepcid) 20 mg PO BID [facility] Last Admin: 08/28/16 17:45 Dose: 20 mg Glyburide (Micronase) 5 mg PO 0800,1700 [facility] Last Admin: 08/28/16 16:36 Dose: 5 mg Hydralazine HCl (Apresoline) 25 mg PO Q4H PRN PRN Reason: high BP Last Admin: 08/28/16 16:36 Dose: 25 mg Folic Acid 1 mg/ Sodium (Chloride) 50.2 mls @ 200 mls/hr IV DAILY [facility] Last Admin: 08/28/16 10:11 Dose: 200 mls/hr Vancomycin HCl (Vancomycin 1gm) 1 gm in 250 mls @ 167 mls/hr IVPB 0600,1800 [facility] Last Admin: 08/29/16 05:25 Dose: 167 mls/hr Piperacillin Sod/Tazobactam Sod (Zosyn 3.375 In Ns 100ml) 100 mls @ 200 mls/hr IVPB Q6 [facility] PRN Reason: Protocol Last Admin: 08/29/16 00:00 Dose: 200 mls/hr Ibuprofen (Motrin Tab) 600 mg PO Q6H PRN PRN Reason: Pain, Mild (1-3) Last Admin: 08/28/16 20:56 Dose: 600 mg Insulin Human Lispro (Humalog Low) 0 units SC ACHS [facility] PRN Reason: Protocol Last Admin: 08/28/16 21:05 Dose: Not Given Lisinopril (Zestril) 10 mg PO DAILY [facility] Last Admin: 08/28/16 10:12 Dose: 10 mg Ondansetron HCl (Zofran Inj) 4 mg IVP Q6H PRN PRN Reason: Nausea/Vomiting Thiamine HCl (Vitamin B1 Tab) 100 mg PO DAILY [facility] Last Admin: 08/28/16 10:12 Dose: 100 mg - Labs Labs: 08/29/16 06:10 08/29/16 05:00 PT 11.3 Seconds (9.9-11.8) 08/27/16 18:00 INR 1.05 (0.93-1.08) 08/27/16 18:00 APTT 26.9 Seconds (23.7-30.8) 08/27/16 18:00 - Constitutional Appears: Non-toxic, No Acute Distress - Head Exam Head Exam: ATRAUMATIC, NORMOCEPHALIC - Eye Exam Eye Exam: EOMI. absent: Scleral icterus - Respiratory Exam Respiratory Exam: NORMAL BREATHING PATTERN. absent: Respiratory Distress - GI/Abdominal Exam GI & Abdominal Exam: Soft. absent: Distended, Tenderness - Extremities Exam Extremities Exam: Normal Capillary Refill, Pedal Edema (Trace LLE edema). absent: Tenderness Additional comments: Dressing stained with serosanguinous drainage. Packing in place. Minimal erythema. - Neurological Exam Neurological Exam: Alert, Awake - Skin Skin Exam: Dry, Warm Assessment and Plan - Assessment and Plan (Free Text) Assessment: 36M POD#1 S/P I&D of Left hidalgo abscess Plan: Will change dressing and packing today. Continue abx Will D/W Dr. Christofer Lau PGY3
[2016-08-29] MEDS: Insulin Lispro (humaLOG) LOW Coverage SC SCH ×4 (08:20→21:50)
[2016-08-29] MEDS: Folic Acid 1 MG in Sodium Chloride 0.9% 50 ML IV SCH (09:30)
[2016-08-29] MEDS: Enoxaparin 40 mg Syringe SC SCH (09:30)
--- NOTE | 2016-08-29 13:45 | CP.PCM.PN ---
<aMlou Katz - Last Filed: 08/29/16 13:49> Subjective - Date & Time of Evaluation Date of Evaluation: 08/29/16 Time of Evaluation: 07:00 - Subjective Subjective: Pt was seen and examined at bedside. Pt has complaints of anxiety at this time. Pt has been experiencing loose stools overnight and this morning. Pt is tolerating po intake without issue and can ambulate. Pt is voiding freely. Pt lle is less swollen and less erythemoatous than before. Pt denied fever, chills sob, chest pains, abdominal pains, n/v/c or urinary symptoms. Objective - Vital Signs/Intake and Output Vital Signs (last 24 hours): Temp Pulse Resp BP Pulse Ox 97.8 F 84 20 143/90 97 08/29/16 07:30 08/29/16 09:32 08/29/16 07:30 08/29/16 09:32 08/29/16 07:30 Intake and Output: 08/29/16 08/29/16 06:59 18:59 Intake Total 1410 360 Balance 1410 360 - Medications Medications: Current Medications Acetaminophen (Tylenol 325mg Tab) 650 mg PO Q6H PRN PRN Reason: Headache Albuterol Sulfate (Albuterol 0.083% Inhal Lindsay (2.5 Mg/3 Ml) Ud) 2.5 mg IH Q2H PRN PRN Reason: Shortness of Breath Alprazolam (Xanax) 0.5 mg PO QID [facility] PRN Reason: Protocol Enoxaparin Sodium (Lovenox) 40 mg SC DAILY [facility] PRN Reason: Protocol Last Admin: 08/29/16 09:30 Dose: 40 mg Famotidine (Pepcid) 20 mg PO BID [facility] Last Admin: 08/29/16 09:32 Dose: 20 mg Fluoxetine HCl (Prozac) 20 mg PO DAILY [facility] Glyburide (Micronase) 5 mg PO 0800,1700 [facility] Last Admin: 08/29/16 08:20 Dose: 5 mg Hydralazine HCl (Apresoline) 25 mg PO Q4H PRN PRN Reason: high BP Last Admin: 08/28/16 16:36 Dose: 25 mg Folic Acid 1 mg/ Sodium (Chloride) 50.2 mls @ 200 mls/hr IV DAILY [facility] Last Admin: 08/29/16 09:30 Dose: 200 mls/hr Vancomycin HCl (Vancomycin 1gm) 1 gm in 250 mls @ 167 mls/hr IVPB 0600,1800 [facility] Last Admin: 08/29/16 05:25 Dose: 167 mls/hr Piperacillin Sod/Tazobactam Sod (Zosyn 3.375 In Ns 100ml) 100 mls @ 200 mls/hr IVPB Q6 [facility] PRN Reason: Protocol Last Admin: 08/29/16 00:00 Dose: 200 mls/hr Ibuprofen (Motrin Tab) 600 mg PO Q6H PRN PRN Reason: Pain, Mild (1-3) Last Admin: 08/28/16 20:56 Dose: 600 mg Insulin Human Lispro (Humalog Low) 0 units SC ACHS [facility] PRN Reason: Protocol Last Admin: 08/29/16 12:25 Dose: 1 units Lisinopril (Zestril) 10 mg PO DAILY [facility] Last Admin: 08/29/16 09:32 Dose: 10 mg Ondansetron HCl (Zofran Inj) 4 mg IVP Q6H PRN PRN Reason: Nausea/Vomiting Thiamine HCl (Vitamin B1 Tab) 100 mg PO DAILY [facility] Last Admin: 08/29/16 09:32 Dose: 100 mg - Labs Labs: 08/29/16 06:10 08/29/16 05:00 PT 11.3 Seconds (9.9-11.8) 08/27/16 18:00 INR 1.05 (0.93-1.08) 08/27/16 18:00 APTT 26.9 Seconds (23.7-30.8) 08/27/16 18:00 - Constitutional Appears: No Acute Distress - Head Exam Head Exam: ATRAUMATIC, NORMAL INSPECTION, NORMOCEPHALIC - Eye Exam Eye Exam: EOMI, Normal appearance, PERRL Pupil Exam: NORMAL ACCOMODATION, PERRL - ENT Exam ENT Exam: Mucous Membranes Moist, Normal Exam - Neck Exam Neck Exam: Full ROM, Normal Inspection. absent: Lymphadenopathy - Respiratory Exam Respiratory Exam: Clear to Ausculation Bilateral, NORMAL BREATHING PATTERN - Cardiovascular Exam Cardiovascular Exam: REGULAR RHYTHM, +S1, +S2. absent: Murmur - GI/Abdominal Exam GI & Abdominal Exam: Soft, Normal Bowel Sounds. absent: Tenderness - Extremities Exam Additional comments: LLE swelling, erythema - Neurological Exam Neurological Exam: Alert, Awake, CN II-XII Intact, Normal Gait, Oriented x3 - Psychiatric Exam Psychiatric exam: Normal Affect, Normal Mood - Skin Skin Exam: Dry, Intact, Normal Color, Warm Assessment and Plan - Assessment and Plan (Free Text) Assessment: 36yo M admitted for Sepsis 2/2 to Cellulitis of L Lower Extremity s/p I&D of left hidalgo abscess, wound cx MRSA +, on contact precaution Cellulitis/Abscess of L Lower Extrem - s/p I&D of left hidalgo abscess pod 1 - Vanc/Zosyn, Wound cx +MRSA, on contact precautions -ID Consult; Dr. Wing; following, continue regimen -Dr. Garland; Gen Surg; continue abx and packing Diarrhea - Cdiff pending HTN - stable - lisinopril 10mg - PRN PO Hydralazine for BP over 175/95 -f/u echo DM - ISS - Glyburide 4mg daily - HbA1C 9.1 Anxiety - Dr. Smith consulted - possible transfer to psych once medically cleared Proph Pepcid Lovenox Heart Healthy Diet Physical Therapy Eval Seen reviewed and discussed with attending <Wade Weathers - Last Filed: 08/29/16 16:20> Objective - Vital Signs/Intake and Output Vital Signs (last 24 hours): Temp Pulse Resp BP Pulse Ox 97.8 F 84 20 143/90 97 08/29/16 07:30 08/29/16 09:32 08/29/16 07:30 08/29/16 09:32 08/29/16 07:30 Intake and Output: 08/29/16 08/29/16 06:59 18:59 Intake Total 1410 360 Balance 1410 360 - Medications Medications: Current Medications Acetaminophen (Tylenol 325mg Tab) 650 mg PO Q6H PRN PRN Reason: Headache Albuterol Sulfate (Albuterol 0.083% Inhal Lindsay (2.5 Mg/3 Ml) Ud) 2.5 mg IH Q2H PRN PRN Reason: Shortness of Breath Alprazolam (Xanax) 0.5 mg PO QID [facility] PRN Reason: Protocol Last Admin: 08/29/16 14:00 Dose: 0.5 mg Enoxaparin Sodium (Lovenox) 40 mg SC DAILY [facility] PRN Reason: Protocol Last Admin: 08/29/16 09:30 Dose: 40 mg Famotidine (Pepcid) 20 mg PO BID [facility] Last Admin: 08/29/16 09:32 Dose: 20 mg Fluoxetine HCl (Prozac) 20 mg PO DAILY [facility] Glyburide (Micronase) 5 mg PO 0800,1700 [facility] Last Admin: 08/29/16 08:20 Dose: 5 mg Hydralazine HCl (Apresoline) 25 mg PO Q4H PRN PRN Reason: high BP Last Admin: 08/28/16 16:36 Dose: 25 mg Folic Acid 1 mg/ Sodium (Chloride) 50.2 mls @ 200 mls/hr IV DAILY [facility] Last Admin: 08/29/16 09:30 Dose: 200 mls/hr Vancomycin HCl (Vancomycin 1gm) 1 gm in 250 mls @ 167 mls/hr IVPB 0600,1800 [facility] Last Admin: 08/29/16 05:25 Dose: 167 mls/hr Piperacillin Sod/Tazobactam Sod (Zosyn 3.375 In Ns 100ml) 100 mls @ 200 mls/hr IVPB Q6 [facility] PRN Reason: Protocol Last Admin: 08/29/16 15:11 Dose: 200 mls/hr Ibuprofen (Motrin Tab) 600 mg PO Q6H PRN PRN Reason: Pain, Mild (1-3) Last Admin: 08/28/16 20:56 Dose: 600 mg Insulin Human Lispro (Humalog Low) 0 units SC ACHS [facility] PRN Reason: Protocol Last Admin: 08/29/16 12:25 Dose: 1 units Lisinopril (Zestril) 10 mg PO DAILY [facility] Last Admin: 08/29/16 09:32 Dose: 10 mg Loperamide HCl (Imodium) 2 mg PO Q4H PRN PRN Reason: Diarrhea Last Admin: 08/29/16 15:19 Dose: 2 mg Ondansetron HCl (Zofran Inj) 4 mg IVP Q6H PRN PRN Reason: Nausea/Vomiting Thiamine HCl (Vitamin B1 Tab) 100 mg PO DAILY [facility] Last Admin: 08/29/16 09:32 Dose: 100 mg - Labs Labs: 08/29/16 06:10 08/29/16 05:00 PT 11.3 Seconds (9.9-11.8) 08/27/16 18:00 INR 1.05 (0.93-1.08) 08/27/16 18:00 APTT 26.9 Seconds (23.7-30.8) 08/27/16 18:00 Attending/Attestation - Attestation I have personally seen and examined this patient.: Yes I have fully participated in the care of the patient.: Yes I have reviewed all pertinent clinical information, including history, physical exam and plan: Yes Notes (Text): 08/29/16 16:12 attending note; Patient seen and examined with resident. Patient is a 36 year old male who is admitted with LLE cellulitis/abscess. Continue IV vancomycin and Zosyn. Surgery evaluation was appreciated; Packing done today. Wound culture grew MRSA. LE doppler was negative. X-rays negative for osteomyelitis. Continue with compresses and leg elevation. A1c is 9.1. He is started on glyburide. Diabetic education referral ordered. He is on lisinopril and hydralazine prn for hypertension. stool for C. difficile is negative. Agoraphobia; psychiatric evaluation appreciated. Started on Xanax and Prozac. upon discharge the patient will follow up with PMD Dr. Brady.
[2016-08-29] MEDS ORDERED: Loperamide Hydrochloride 1 mg/5 ml Cup PO PRN (14:28)
[2016-08-29] MEDS: Piperacillin/Tazobact 3.375 gm 100 ML IVPB SCH ×3 (15:11→17:04)
--- NOTE | 2016-08-29 19:38 | CP.PCM.PN ---
Subjective - Date & Time of Evaluation Date of Evaluation: 08/29/16 Time of Evaluation: 18:45 - Subjective Subjective: Infectious Disease Follow Up: August 29, 2016 36 yo male with two small boils appearing in the upper left lower leg/ anterior tibia that worsened despite use of Neosporin and special dressing his father had used for healing his prior wounds. Patient's mother had leftover Azithromycin for antibiotics that he took six doses of at 600mg a dose. The patient developed increasing swelling, erythema, and a bump lateral of the two boils. The patient also developed increasing swelling and erythema of the leg below the boils. The patient has not seen a doctor for many many years now since he was 23. Complains of some episodes of diarrhea today... likely antibiotic related. Objective - Vital Signs/Intake and Output Vital Signs (last 24 hours): Temp Pulse Resp BP Pulse Ox 99.5 F 93 H 16 163/96 H 98 08/29/16 16:00 08/29/16 16:00 08/29/16 16:00 08/29/16 16:00 08/29/16 16:00 Intake and Output: 08/29/16 08/30/16 18:59 06:59 Intake Total 360 Balance 360 - Medications Medications: Current Medications Acetaminophen (Tylenol 325mg Tab) 650 mg PO Q6H PRN PRN Reason: Headache Last Admin: 08/29/16 17:06 Dose: 650 mg Albuterol Sulfate (Albuterol 0.083% Inhal Lindsay (2.5 Mg/3 Ml) Ud) 2.5 mg IH Q2H PRN PRN Reason: Shortness of Breath Alprazolam (Xanax) 0.5 mg PO QID [facility] PRN Reason: Protocol Last Admin: 08/29/16 17:04 Dose: 0.5 mg Enoxaparin Sodium (Lovenox) 40 mg SC DAILY [facility] PRN Reason: Protocol Last Admin: 08/29/16 09:30 Dose: 40 mg Famotidine (Pepcid) 20 mg PO BID [facility] Last Admin: 08/29/16 17:04 Dose: 20 mg Fluoxetine HCl (Prozac) 20 mg PO DAILY [facility] Glyburide (Micronase) 5 mg PO 0800,1700 [facility] Last Admin: 08/29/16 17:04 Dose: 5 mg Hydralazine HCl (Apresoline) 25 mg PO Q4H PRN PRN Reason: high BP Last Admin: 08/28/16 16:36 Dose: 25 mg Vancomycin HCl (Vancomycin 1gm) 1 gm in 250 mls @ 167 mls/hr IVPB 0600,1800 [facility] Last Admin: 08/29/16 17:03 Dose: 167 mls/hr Ibuprofen (Motrin Tab) 600 mg PO Q6H PRN PRN Reason: Pain, Mild (1-3) Last Admin: 08/28/16 20:56 Dose: 600 mg Insulin Human Lispro (Humalog Low) 0 units SC ACHS [facility] PRN Reason: Protocol Last Admin: 08/29/16 17:00 Dose: Not Given Lisinopril (Zestril) 10 mg PO DAILY [facility] Last Admin: 08/29/16 09:32 Dose: 10 mg Loperamide HCl (Imodium) 2 mg PO Q4H PRN PRN Reason: Diarrhea Last Admin: 08/29/16 15:19 Dose: 2 mg Multivitamins (Thera Tab) 1 tab PO 0800 [facility] Ondansetron HCl (Zofran Inj) 4 mg IVP Q6H PRN PRN Reason: Nausea/Vomiting Thiamine HCl (Vitamin B1 Tab) 100 mg PO DAILY [facility] Last Admin: 08/29/16 09:32 Dose: 100 mg - Labs Labs: 08/29/16 06:10 08/29/16 05:00 PT 11.3 Seconds (9.9-11.8) 08/27/16 18:00 INR 1.05 (0.93-1.08) 08/27/16 18:00 APTT 26.9 Seconds (23.7-30.8) 08/27/16 18:00 - Constitutional Appears: Non-toxic, No Acute Distress - Head Exam Head Exam: ATRAUMATIC, NORMOCEPHALIC - Eye Exam Eye Exam: EOMI, PERRL Pupil Exam: NORMAL ACCOMODATION, PERRL - ENT Exam ENT Exam: Mucous Membranes Moist, Normal External Ear Exam, TM's Normal Bilaterally - Neck Exam Neck Exam: Full ROM, Normal Inspection - Respiratory Exam Respiratory Exam: Clear to Ausculation Bilateral, NORMAL BREATHING PATTERN. absent: Rales, Rhonchi, Wheezes - Cardiovascular Exam Cardiovascular Exam: REGULAR RHYTHM, RRR, +S1, +S2 - GI/Abdominal Exam GI & Abdominal Exam: Soft, Normal Bowel Sounds. absent: Distended, Tenderness - Extremities Exam Extremities Exam: Full ROM Additional comments: left lower leg erythema and possible abscess on tissue over lateral anterior upper tibia. Increased warmth of the left lower lateral leg. - Neurological Exam Neurological Exam: Alert, Awake, CN II-XII Intact, Oriented x3 - Psychiatric Exam Psychiatric exam: Normal Affect, Normal Mood - Skin Skin Exam: Normal Color Additional comments: as per extremities exam. Assessment and Plan - Assessment and Plan (Free Text) Assessment: 36 yo male with left lower leg cellulitis and abscess formation. I&D by surgery today with minimal drainage. On Vancomycin and Zosyn for antibiotic coverage at this time. The left leg appears to be improving. Supportive care. Awaiting cultures. Local wound care. No known prior medical history but patient has not seen a doctor in 13 years. The patient did take Azithromycin twice a day for 6 doses and used some wound supplies from his father in caring for the wound. Wound culture showing MRSA. Maintaining patient on Vancomycin IV at this time. Check vancomycin levels. Patient of contact isolation. When cleared by Surgery, can consider use of Bactrim DS 1 tab BID for antibiotic coverage on discharge for 14 days. Thank you for allowing me to participate in the care of the patient, we will follow with you.
[2016-08-29] MEDS: Lactobacillus Acidophilus 500 MU Cap PO SCH (20:53)
[2016-08-30 04:41] LABS: ADD MANUAL DIFF? NO
[2016-08-30 04:52] LABS: BASO # 0.04 K/mm3 (0.0-2.0); BASO % 0.7 % (0.0-3.0); EOS # 0.1 (0.0-0.7); EOS % 1.9 % (1.5-5.0); GRAN # 3.56 (1.4-6.5); GRAN % 60.9 % (50.0-68.0); HEMATOCRIT 33.7 % (42.0-52.0); LYMPH # 1.4 (1.2-3.4); LYMPH % 24.3 % (22.0-35.0); MEAN CELL VOLUME 90.8 fL (80.0-105.0); MEAN CORPUSCULAR HEMOGLOBIN 31.5 pg (25.0-35.0); MEAN CORPUSCULAR HGB CONC 34.7 g/dl (31.0-37.0); MEAN PLATELET VOLUME 8.6 fl (7.0-11.0); MONO # 0.7 (0.1-0.6); MONO % 12.2 % (1.0-6.0); PLATELET COUNT 248 10^3/uL (120.0-450.0); RED CELL DISTRIBUTION WIDTH 11.8 % (11.5-14.5); WHITE BLOOD COUNT 5.8 10^3/ul (4.5-11.0)
[2016-08-30 04:59] LABS: ALB/GLOB RATIO 1.3 (1.1-1.8); ALKALINE PHOSPHATASE 35 U/L (38-133); ALT/SGPT 32 U/L (7-56); AST/SGOT 33 U/L (15-59); BILIRUBIN,TOTAL 0.4 mg/dL (0.2-1.3); BLOOD UREA NITROGEN 7 mg/dL (7-21); CALCIUM 8.9 mg/dL (8.4-10.5); CARBON DIOXIDE 26 mmol/L (21-33); CHLORIDE 103 mmol/L (95-110); GFR AFRICAN-AMERICAN > 60; GLUCOSE,RANDOM 78 mg/dL (70-110); POTASSIUM 3.7 mmol/L (3.6-5.0); SODIUM 139 mmol/L (132-148); TOTAL PROTEIN 7.3 g/dL (5.8-8.3)
[2016-08-30] MEDS: Vancomycin 1gm in NS 250ml 1 GM/250 ML BAG IVPB SCH (05:58)
--- NOTE | 2016-08-30 07:28 | CP.PCM.PN ---
Subjective - Date & Time of Evaluation Date of Evaluation: 08/30/16 Time of Evaluation: 07:26 - Subjective Subjective: Surgery: Dr. Beaulieu Patient doing well. Complains of some upset stomach and diarrhea yesterday, most likely antibiotic related. Reports mild pain to the leg but ambulating w/o difficulty. States the swelling has improved. Objective - Vital Signs/Intake and Output Vital Signs (last 24 hours): Temp Pulse Resp BP Pulse Ox 99.5 F 93 H 16 163/96 H 98 08/29/16 16:00 08/29/16 16:00 08/29/16 16:00 08/29/16 16:00 08/29/16 16:00 Intake and Output: 08/30/16 08/30/16 06:59 18:59 Intake Total 620 Balance 620 - Medications Medications: Current Medications Acetaminophen (Tylenol 325mg Tab) 650 mg PO Q6H PRN PRN Reason: Headache Last Admin: 08/30/16 05:50 Dose: 650 mg Albuterol Sulfate (Albuterol 0.083% Inhal Lindsay (2.5 Mg/3 Ml) Ud) 2.5 mg IH Q2H PRN PRN Reason: Shortness of Breath Alprazolam (Xanax) 0.5 mg PO QID [facility] PRN Reason: Protocol Last Admin: 08/29/16 21:46 Dose: 0.5 mg Enoxaparin Sodium (Lovenox) 40 mg SC DAILY [facility] PRN Reason: Protocol Last Admin: 08/29/16 09:30 Dose: 40 mg Famotidine (Pepcid) 20 mg PO BID [facility] Last Admin: 08/29/16 17:04 Dose: 20 mg Fluoxetine HCl (Prozac) 20 mg PO DAILY [facility] Glyburide (Micronase) 5 mg PO 0800,1700 [facility] Last Admin: 08/29/16 17:04 Dose: 5 mg Hydralazine HCl (Apresoline) 25 mg PO Q4H PRN PRN Reason: high BP Last Admin: 08/28/16 16:36 Dose: 25 mg Vancomycin HCl (Vancomycin 1gm) 1 gm in 250 mls @ 167 mls/hr IVPB 0600,1800 [facility] Last Admin: 08/30/16 05:58 Dose: 167 mls/hr Ibuprofen (Motrin Tab) 600 mg PO Q6H PRN PRN Reason: Pain, Mild (1-3) Last Admin: 08/29/16 20:53 Dose: 600 mg Insulin Human Lispro (Humalog Low) 0 units SC ACHS [facility] PRN Reason: Protocol Last Admin: 08/29/16 21:50 Dose: Not Given Lactobacillus Acidophilus (Bacid Acidophilus) 1 cap PO BID [facility] Last Admin: 08/29/16 20:53 Dose: 1 cap Lisinopril (Zestril) 10 mg PO DAILY [facility] Last Admin: 08/29/16 09:32 Dose: 10 mg Loperamide HCl (Imodium) 2 mg PO Q4H PRN PRN Reason: Diarrhea Last Admin: 08/29/16 15:19 Dose: 2 mg Multivitamins (Thera Tab) 1 tab PO 0800 [facility] Ondansetron HCl (Zofran Inj) 4 mg IVP Q6H PRN PRN Reason: Nausea/Vomiting Thiamine HCl (Vitamin B1 Tab) 100 mg PO DAILY [facility] Last Admin: 08/29/16 09:32 Dose: 100 mg - Labs Labs: 08/30/16 04:35 08/30/16 04:35 PT 11.3 Seconds (9.9-11.8) 08/27/16 18:00 INR 1.05 (0.93-1.08) 08/27/16 18:00 APTT 26.9 Seconds (23.7-30.8) 08/27/16 18:00 - Constitutional Appears: Non-toxic, No Acute Distress - Head Exam Head Exam: ATRAUMATIC, NORMOCEPHALIC - Eye Exam Eye Exam: EOMI, Normal appearance - ENT Exam ENT Exam: Mucous Membranes Moist - Respiratory Exam Respiratory Exam: NORMAL BREATHING PATTERN. absent: Respiratory Distress - Cardiovascular Exam Cardiovascular Exam: REGULAR RHYTHM. absent: Tachycardia - Extremities Exam Additional comments: wound on anterior left hidalgo from I&D, no surrounding erythema. wound is open and base is pink and healthy. The redness on the LE has decreased significantly as well as swelling. Assessment and Plan - Assessment and Plan (Free Text) Assessment: 36 y/o male w/ Left hidalgo abscess s/p I&D, MRSA+ Plan: -cont packing changes daily -abx per ID -no further surgical intervention at this time -agree with Bactrim po 14days upon discharge -can f/u w/ Dr. Beaulieu in 1-2 weeks -further [place]s [place] Dr[place]
[2016-08-30] MEDS ORDERED: Multivitamin Therapeutic Tab PO SCH (08:00)
[2016-08-30 08:18] VITALS: BP 159/97; PULSE 85; RESP 20; TEMP 98; O2SAT 95
[2016-08-30] MEDS: Insulin Lispro (humaLOG) LOW Coverage SC SCH ×2 (08:29→11:48)
--- NOTE | 2016-08-30 08:56 | PCM.PYCHPN ---
Psychiatric Progress Note - Psychiatric Progress Note Patient Chief Complaint: [id number],doesnt leave house. severe aNXIETY SINCEteens. Problems Identified/Issues Discussed: agoraphobia,anxiety,possible learning disorder Medical Problems: cellulitis Medication Change: Yes (started prozac. pt resistant to taking meds) Medical Record Reviewed: Yes Consults ordered or reviewed: reviewed Mental Status Examination - Cognitive Function Orientation: Person, Place, Situation, Time Memory: Intact Attention: WNL Concentration: WNL Association: WNL Fund of Knowledge: [facility] Decription of patient's judgement and insights: marginal - Mood Mood: Anxious - Affect Affect: Constricted - Speech Speech: Appropriate - Formal Thought Process Formal Thought Process: No Impairment - Suicidal Ideation Suicidal Ideation: No - Homicidal Ideation Homicidal Ideation: No Goal/Treatment Plan - Goal/Treatment Plan Progress Toward Problem(s) and Goals/Treatment Plan: have offered IPstay. pt rejects. will need referral,but is rsistant
[2016-08-30] MEDS: Lactobacillus Acidophilus 500 MU Cap PO SCH (09:33)
[2016-08-30] MEDS: Enoxaparin 40 mg Syringe SC SCH ×2 (09:41→09:57)
[2016-08-30] MEDS ORDERED: Tmp-Smz 800 mg-160 mg DS Tab PO SCH (10:45)
--- NOTE | 2016-08-30 15:11 | CP.PCM.PN ---
Subjective - Date & Time of Evaluation Date of Evaluation: 08/30/16 Time of Evaluation: 11:00 - Subjective Subjective: Infectious Disease Follow Up: August 30, 2016 36 yo male with two small boils appearing in the upper left lower leg/ anterior tibia that worsened despite use of Neosporin and special dressing his father had used for healing his prior wounds. Patient's mother had leftover Azithromycin for antibiotics that he took six doses of at 600mg a dose 12 hours apart. The patient developed increasing swelling, erythema, and a bump lateral of the two boils. The patient also developed increasing swelling and erythema of the leg below the boils. The patient has not seen a doctor for many many years now since he was 23. Complains of some episodes of diarrhea today... likely antibiotic related. Only on Vancomycin IV. Potential discharge today. Physically, the left leg has significantly decreased swelling and erythema compared to admission. Objective - Vital Signs/Intake and Output Vital Signs (last 24 hours): Temp Pulse Resp BP Pulse Ox 98 F 85 20 159/97 H 95 08/30/16 07:30 08/30/16 09:34 08/30/16 07:30 08/30/16 09:34 08/30/16 07:30 Intake and Output: 08/30/16 08/30/16 06:59 18:59 Intake Total 620 Balance 620 - Labs Labs: 08/30/16 04:35 08/30/16 04:35 PT 11.3 Seconds (9.9-11.8) 08/27/16 18:00 INR 1.05 (0.93-1.08) 08/27/16 18:00 APTT 26.9 Seconds (23.7-30.8) 08/27/16 18:00 - Constitutional Appears: Non-toxic, No Acute Distress, Chronically Ill - Head Exam Head Exam: ATRAUMATIC, NORMOCEPHALIC - Eye Exam Eye Exam: EOMI, PERRL Pupil Exam: NORMAL ACCOMODATION, PERRL - ENT Exam ENT Exam: Mucous Membranes Moist, Normal External Ear Exam, TM's Normal Bilaterally - Neck Exam Neck Exam: Full ROM, Normal Inspection - Respiratory Exam Respiratory Exam: Clear to Ausculation Bilateral, NORMAL BREATHING PATTERN. absent: Rales, Rhonchi, Wheezes - Cardiovascular Exam Cardiovascular Exam: REGULAR RHYTHM, RRR, +S1, +S2 - GI/Abdominal Exam GI & Abdominal Exam: Soft, Normal Bowel Sounds. absent: Distended, Tenderness - Extremities Exam Extremities Exam: Full ROM Additional comments: very mild erythema of the left leg. swelling appears to be resolved. - Neurological Exam Neurological Exam: Alert, Awake, CN II-XII Intact, Oriented x3 - Psychiatric Exam Psychiatric exam: Normal Affect, Normal Mood - Skin Skin Exam: Intact, Normal Color Assessment and Plan - Assessment and Plan (Free Text) Assessment: 36 yo male with left lower leg cellulitis and abscess formation. I&D by surgery today with minimal drainage. On Vancomycin and Zosyn for antibiotic coverage at this time. The left leg appears to be improving. Supportive care. Awaiting cultures. Local wound care. No known prior medical history but patient has not seen a doctor in 13 years. The patient did take Azithromycin 600 mg twice a day for 6 doses and used some wound supplies from his father in caring for the wound. Wound culture showing MRSA. Maintaining patient on Vancomycin IV at this time. Check vancomycin levels. Levels were low on check. Patient on contact isolation. When cleared by Surgery, can consider use of Bactrim DS 1 tab BID for antibiotic coverage on discharge for 14 days. Possible discharge today... if not discharged, will need to increase dose of Vancomycin IV. Thank you for allowing me to participate in the care of the patient, we will follow with you.
--- NOTE | 2016-08-30 15:54 | CP.PCM.DIS ---
<Agapito Begum - Last Filed: 08/30/16 15:44> Provider - Provider Date of Admission: 08/27/16 19:47 Attending physician: Wade Weathers MD Primary care physician: Stuart Brady MD Consults: General Surgery - Dr. Ann ID - Dr. Wing Psych - Dr. Smith Time Spent in preparation of Discharge (in minutes): 35 Diagnosis - Discharge Diagnosis (1) Cellulitis of lower extremity Status: Acute Hospital Course - Lab Results Lab Results: Micro Results 08/28/16 17:20 Leg - Left Gram Stain - Final 08/28/16 17:20 Leg - Left Wound Culture - Final Methicillin Resistant S Aureus 08/28/16 18:06 Stool C. difficile Antigen & Toxin A,B (M - Final Most Recent Lab Values WBC 5.8 10^3/ul (4.5-11.0) D 08/30/16 04:35 RBC 3.71 10^6/uL (3.5-6.1) 08/30/16 04:35 Hgb 11.7 gm/dL (14.0-18.0) L 08/30/16 04:35 Hct 33.7 % (42.0-52.0) L 08/30/16 04:35 MCV 90.8 fL (80.0-105.0) 08/30/16 04:35 MCH 31.5 pg (25.0-35.0) 08/30/16 04:35 MCHC 34.7 g/dl (31.0-37.0) 08/30/16 04:35 RDW 11.8 % (11.5-14.5) 08/30/16 04:35 Plt Count 248 10^3/uL (120.0-450.0) 08/30/16 04:35 MPV 8.6 fl (7.0-11.0) 08/30/16 04:35 Gran % 60.9 % (50.0-68.0) 08/30/16 04:35 Lymph % (Auto) 24.3 % (22.0-35.0) 08/30/16 04:35 [place] % (Auto) 12.2 % (1.0-6.0) H 08/30/16 04:35 Eos % (Auto) 1.9 % (1.5-5.0) 08/30/16 04:35 Baso % (Auto) 0.7 % (0.0-3.0) 08/30/16 04:35 Gran # 3.56 (1.4-6.5) 08/30/16 04:35 Lymph # 1.4 (1.2-3.4) 08/30/16 04:35 [place] # 0.7 (0.1-0.6) H 08/30/16 04:35 Eos # 0.1 (0.0-0.7) 08/30/16 04:35 Baso # 0.04 K/mm3 (0.0-2.0) 08/30/16 04:35 ESR 64 mm/hr (0.0-15.0) H 08/27/16 18:00 PT 11.3 Seconds (9.9-11.8) 08/27/16 18:00 INR 1.05 (0.93-1.08) 08/27/16 18:00 APTT 26.9 Seconds (23.7-30.8) 08/27/16 18:00 pO2 53 mm/Hg (30-55) 08/27/16 18:00 VBG pH 7.40 (7.32-7.43) 08/27/16 18:00 VBG pCO2 52.0 (40-60) 08/27/16 18:00 VBG HCO3 32.2 mmol/l (21-28) H 08/27/16 18:00 VBG Total CO2 33.8 mmol.L (22-28) H 08/27/16 18:00 VBG O2 Sat (Calc) 91.5 % (40-65) H 08/27/16 18:00 VBG Base Excess 6.0 mmol/L (0.0-2.0) H 08/27/16 18:00 VBG Potassium 4.4 mmol/L (3.6-5.2) 08/27/16 18:00 Sodium 138.0 mmol/L (132-148) 08/27/16 18:00 Chloride 101.0 mmol/L (98-107) 08/27/16 18:00 Glucose 185 mg/dl (75-110) H 08/27/16 18:00 Lactate 1.1 mmol/L (0.7-2.1) 08/27/16 18:00 FiO2 21.0 % 08/27/16 18:00 Sodium 139 mmol/L (132-148) 08/30/16 04:35 Potassium 3.7 mmol/L (3.6-5.0) 08/30/16 04:35 Chloride 103 mmol/L (95-110) 08/30/16 04:35 Carbon Dioxide 26 mmol/L (21-33) 08/30/16 04:35 Anion Gap 14 (10-20) 08/30/16 04:35 BUN 7 mg/dL (7-21) 08/30/16 04:35 Creatinine 0.6 mg/dL (0.5-1.4) 08/30/16 04:35 Est GFR ( Amer) > 60 08/30/16 04:35 Est GFR (Non-Af Amer) > 60 08/30/16 04:35 POC Glucose (mg/dL) 141 mg/dL (65-110) H 08/30/16 11:31 Random Glucose 78 mg/dL (70-110) 08/30/16 04:35 Hemoglobin A1c 9.1 % (4.2-6.5) H 08/27/16 18:00 Calcium 8.9 mg/dL (8.4-10.5) 08/30/16 04:35 Phosphorus 3.6 mg/dL (2.5-4.5) 08/27/16 18:00 Magnesium 2.0 mg/dL (1.7-2.2) 08/27/16 18:00 Iron 112 ug/dL (45-180) 08/28/16 06:30 TIBC 260 ug/dL (261-462) L 08/28/16 06:30 % Saturation 43 % (20-55) 08/28/16 06:30 Total Bilirubin 0.4 mg/dL (0.2-1.3) 08/30/16 04:35 AST 33 U/L (15-59) 08/30/16 04:35 ALT 32 U/L (7-56) 08/30/16 04:35 Alkaline Phosphatase 35 U/L (38-133) L 08/30/16 04:35 C-React Prot High Sens > 15.00 mg/L (1.00-3.00) H 08/27/16 18:00 NT-Pro-B Natriuret Pep 97.6 pg/mL (0-450) 08/27/16 18:00 Total Protein 7.3 g/dL (5.8-8.3) 08/30/16 04:35 Albumin 4.1 g/dL (3.0-4.8) 08/30/16 04:35 Globulin 3.2 gm/dL 08/30/16 04:35 Albumin/Globulin Ratio 1.3 (1.1-1.8) 08/30/16 04:35 Lipase 71 U/L (23-300) 08/27/16 18:00 Vitamin B12 571 pg/mL (239-931) 08/28/16 06:30 Folate > 20.0 ng/mL 08/28/16 06:30 Venous Blood Potassium 4.4 mmol/L (3.6-5.2) 08/27/16 18:00 Urine Color Yellow (YELLOW) 08/27/16 18:00 Urine Appearance Clear (CLEAR) 08/27/16 18:00 Urine pH 6.5 (4.7-8.0) 08/27/16 18:00 Ur Specific [place] 1.010 (1.005-1.035) 08/27/16 18:00 Urine Protein Negative mg/dL (<30 mg/dL) 08/27/16 18:00 Urine Glucose (UA) Negative mg/dL (NEGATIVE) 08/27/16 18:00 Urine Ketones Trace mg/dL (NEGATIVE) H 08/27/16 18:00 Urine Blood Large (NEGATIVE) H 08/27/16 18:00 Urine Nitrate Negative (NEGATIVE) 08/27/16 18:00 Urine Bilirubin Negative (NEGATIVE) 08/27/16 18:00 Urine Urobilinogen 0.2 E.U./dL (<1 E.U./dL) 08/27/16 18:00 Ur Leukocyte Esterase Negative Keri/uL (NEGATIVE) 08/27/16 18:00 Urine RBC 25 - 30 /hpf (0-2) 08/27/16 18:00 Urine WBC 1 - 3 /hpf (0-6) 08/27/16 18:00 Ur Epithelial Cells 0 - 2 /hpf (0-5) 08/27/16 18:00 Amorphous Sediment Trace 08/27/16 18:00 Urine Bacteria Many (NEG) 08/27/16 18:00 Urine Other Fiber 08/27/16 18:00 Vancomycin Peak 16.5 ug/mL (30.0-40.0) L 08/30/16 08:00 Vancomycin Trough 5.2 ug/mL (5.0-10.0) 08/30/16 04:35 Urine Opiates Screen Positive (NEGATIVE) H 08/27/16 18:00 Urine Methadone Screen Negative (NEGATIVE) 08/27/16 18:00 Ur Barbiturates Screen Negative (NEGATIVE) 08/27/16 18:00 Ur Phencyclidine Scrn Negative (NEGATIVE) 08/27/16 18:00 Ur Amphetamines Screen Negative (NEGATIVE) 08/27/16 18:00 U Benzodiazepines Scrn Positive (NEGATIVE) H 08/27/16 18:00 U Oth Cocaine Metabols Negative (NEGATIVE) 08/27/16 18:00 U Cannabinoids Screen Negative (NEGATIVE) 08/27/16 18:00 Alcohol, Quantitative < 10 mg/dL (0-10) 08/27/16 18:00 - Hospital Course Hospital Course: This patient is a 36yo M who has no Pmhx who is presenting for a 4d history of LLE swelling and redness. He noticed that he had a small boil on his anterior tibia which he started applying neosporin to, which did not help. His mother had some leftover Zyvox from her previous hospitalization which she lent to her son thinking it would help his infection. He took 2 doses of it. He also took percocet for the pain which he said helped. He denies all other drugs, alcohol, or risky sexual behavior. He states he has unlimited exercise tolerance, sleeps with 2 pillows, and does not wake up in the middle of the night gasping for air. He has been admitted to the hospital in the past, 2x for PNA many years ago. Currently denies any fevers/chills, HAWKINS, CP, SOB, abdominal pain, N/V/D, dysuria/freq/urg. Admits to lower extremity pain and swelling on the left side. The patient was admitted for cellulitis of the lower extremity. Xrays of the left LE were done which did not reveal osteomyelitis. US of LE did not reveal DVT. Surgery was consulted and performed needle aspiration of underlying abscess with did not produce aspirate. Wound cultures were done revealing MRSA. ID was consulted and the patient was started on Vancomycin IV. Patient's wound was dressed and packed. He was instructed by surgery on how to manage wound dressings. Patient is transitioned to PO Bactrim and is discharged on Bactrim BID for an additional 10 days. He will f/u with PCP within one week. Patient expressed anxiety with hx of agoraphobia. Psychiatry was consulted and the patient was offered psychiatric admission however he refused this. Psych started the patient on Prozac however he states he took this in the past and suffered from suicidal ideation. The patient was discharged with a 5 day rx for Xanax. He will f/u with a psychiatrist of his choice. Discharge Exam - Head Exam Head Exam: ATRAUMATIC, NORMOCEPHALIC - Eye Exam Eye Exam: EOMI, PERRL - ENT Exam ENT Exam: Mucous Membranes Moist - Respiratory Exam Respiratory Exam: Clear to PA & Lateral. absent: Rales, Rhonchi, Wheezes - Cardiovascular Exam Cardiovascular Exam: REGULAR RHYTHM, +S1, +S2 - GI/Abdominal Exam GI & Abdominal Exam: Normal Bowel Sounds, Soft - Extremities Exam Additional comments: left lower extremity cleaned and dressed. mild erythema. no induration. - Neurological Exam Neurological exam: Alert, Oriented x3 - Psychiatric Exam Psychiatric exam: Anxious - Skin Skin Exam: Dry, Warm Discharge Plan - Discharge Medications Prescriptions: ALPRAZolam [Xanax] 0.5 mg PO QID PRN #12 tab PRN Reason: Anxiety glyBURIDE [Micronase] 5 mg PO 0800,1700 #60 tab Lactobacillus Acidophilus [Bacid Acidophilus] 1 cap PO BID #12 cap Lisinopril [Zestril] 10 mg PO DAILY #30 tab Sulfamethoxazole/Trimethoprim [Bactrim DS 800 mg-160 mg] 1 tab PO BID #20 tab - Follow Up Plan Condition: FAIR Disposition: HOME/ ROUTINE Instructions: MRSA (Methicillin Resistant Staphylococcus Aureus) (DC), Pneumococcal Vaccine for Adults (DC), Cellulitis (DC), Diabetes Mellitus Type 2 in Adults (DC), Acute Wound Care (DC), Acute Diarrhea (GEN), Chronic Hypertension (DC), Anxiety (DC) Additional Instructions: 1. Follow up with PMD DR. Brady or PMD of choice. 2. Follow up with psychiatrist as outpatient. 3. local wound care. -Pack wound daily and cover with a dry sterile dressing 4. Follow up with surgery dr. Hayes in 1 week. Referrals: Jeramy Beaulieu MD [Staff Provider] - Stuart Brady MD [Primary Care Provider] - <Wade Weathers - Last Filed: 08/30/16 16:34> Provider - Provider Date of Admission: 08/27/16 19:47 Attending physician: Wade Weathers MD Primary care physician: Stuart Brady MD Hospital Course - Lab Results Lab Results: Micro Results 08/28/16 17:20 Leg - Left Gram Stain - Final 08/28/16 17:20 Leg - Left Wound Culture - Final Methicillin Resistant S Aureus 08/28/16 18:06 Stool C. difficile Antigen & Toxin A,B (M - Final Most Recent Lab Values WBC 5.8 10^3/ul (4.5-11.0) D 08/30/16 04:35 RBC 3.71 10^6/uL (3.5-6.1) 08/30/16 04:35 Hgb 11.7 gm/dL (14.0-18.0) L 08/30/16 04:35 Hct 33.7 % (42.0-52.0) L 08/30/16 04:35 MCV 90.8 fL (80.0-105.0) 08/30/16 04:35 MCH 31.5 pg (25.0-35.0) 08/30/16 04:35 MCHC 34.7 g/dl (31.0-37.0) 08/30/16 04:35 RDW 11.8 % (11.5-14.5) 08/30/16 04:35 Plt Count 248 10^3/uL (120.0-450.0) 08/30/16 04:35 MPV 8.6 fl (7.0-11.0) 08/30/16 04:35 Gran % 60.9 % (50.0-68.0) 08/30/16 04:35 Lymph % (Auto) 24.3 % (22.0-35.0) 08/30/16 04:35 [place] % (Auto) 12.2 % (1.0-6.0) H 08/30/16 04:35 Eos % (Auto) 1.9 % (1.5-5.0) 08/30/16 04:35 Baso % (Auto) 0.7 % (0.0-3.0) 08/30/16 04:35 Gran # 3.56 (1.4-6.5) 08/30/16 04:35 Lymph # 1.4 (1.2-3.4) 08/30/16 04:35 [place] # 0.7 (0.1-0.6) H 08/30/16 04:35 Eos # 0.1 (0.0-0.7) 08/30/16 04:35 Baso # 0.04 K/mm3 (0.0-2.0) 08/30/16 04:35 ESR 64 mm/hr (0.0-15.0) H 08/27/16 18:00 PT 11.3 Seconds (9.9-11.8) 08/27/16 18:00 INR 1.05 (0.93-1.08) 08/27/16 18:00 APTT 26.9 Seconds (23.7-30.8) 08/27/16 18:00 pO2 53 mm/Hg (30-55) 08/27/16 18:00 VBG pH 7.40 (7.32-7.43) 08/27/16 18:00 VBG pCO2 52.0 (40-60) 08/27/16 18:00 VBG HCO3 32.2 mmol/l (21-28) H 08/27/16 18:00 VBG Total CO2 33.8 mmol.L (22-28) H 08/27/16 18:00 VBG O2 Sat (Calc) 91.5 % (40-65) H 08/27/16 18:00 VBG Base Excess 6.0 mmol/L (0.0-2.0) H 08/27/16 18:00 VBG Potassium 4.4 mmol/L (3.6-5.2) 08/27/16 18:00 Sodium 138.0 mmol/L (132-148) 08/27/16 18:00 Chloride 101.0 mmol/L (98-107) 08/27/16 18:00 Glucose 185 mg/dl (75-110) H 08/27/16 18:00 Lactate 1.1 mmol/L (0.7-2.1) 08/27/16 18:00 FiO2 21.0 % 08/27/16 18:00 Sodium 139 mmol/L (132-148) 08/30/16 04:35 Potassium 3.7 mmol/L (3.6-5.0) 08/30/16 04:35 Chloride 103 mmol/L (95-110) 08/30/16 04:35 Carbon Dioxide 26 mmol/L (21-33) 08/30/16 04:35 Anion Gap 14 (10-20) 08/30/16 04:35 BUN 7 mg/dL (7-21) 08/30/16 04:35 Creatinine 0.6 mg/dL (0.5-1.4) 08/30/16 04:35 Est GFR ( Amer) > 60 08/30/16 04:35 Est GFR (Non-Af Amer) > 60 08/30/16 04:35 POC Glucose (mg/dL) 141 mg/dL (65-110) H 08/30/16 11:31 Random Glucose 78 mg/dL (70-110) 08/30/16 04:35 Hemoglobin A1c 9.1 % (4.2-6.5) H 08/27/16 18:00 Calcium 8.9 mg/dL (8.4-10.5) 08/30/16 04:35 Phosphorus 3.6 mg/dL (2.5-4.5) 08/27/16 18:00 Magnesium 2.0 mg/dL (1.7-2.2) 08/27/16 18:00 Iron 112 ug/dL (45-180) 08/28/16 06:30 TIBC 260 ug/dL (261-462) L 08/28/16 06:30 % Saturation 43 % (20-55) 08/28/16 06:30 Total Bilirubin 0.4 mg/dL (0.2-1.3) 08/30/16 04:35 AST 33 U/L (15-59) 08/30/16 04:35 ALT 32 U/L (7-56) 08/30/16 04:35 Alkaline Phosphatase 35 U/L (38-133) L 08/30/16 04:35 C-React Prot High Sens > 15.00 mg/L (1.00-3.00) H 08/27/16 18:00 NT-Pro-B Natriuret Pep 97.6 pg/mL (0-450) 08/27/16 18:00 Total Protein 7.3 g/dL (5.8-8.3) 08/30/16 04:35 Albumin 4.1 g/dL (3.0-4.8) 08/30/16 04:35 Globulin 3.2 gm/dL 08/30/16 04:35 Albumin/Globulin Ratio 1.3 (1.1-1.8) 08/30/16 04:35 Lipase 71 U/L (23-300) 08/27/16 18:00 Vitamin B12 571 pg/mL (239-931) 08/28/16 06:30 Folate > 20.0 ng/mL 08/28/16 06:30 Venous Blood Potassium 4.4 mmol/L (3.6-5.2) 08/27/16 18:00 Urine Color Yellow (YELLOW) 08/27/16 18:00 Urine Appearance Clear (CLEAR) 08/27/16 18:00 Urine pH 6.5 (4.7-8.0) 08/27/16 18:00 Ur Specific [place] 1.010 (1.005-1.035) 08/27/16 18:00 Urine Protein Negative mg/dL (<30 mg/dL) 08/27/16 18:00 Urine Glucose (UA) Negative mg/dL (NEGATIVE) 08/27/16 18:00 Urine Ketones Trace mg/dL (NEGATIVE) H 08/27/16 18:00 Urine Blood Large (NEGATIVE) H 08/27/16 18:00 Urine Nitrate Negative (NEGATIVE) 08/27/16 18:00 Urine Bilirubin Negative (NEGATIVE) 08/27/16 18:00 Urine Urobilinogen 0.2 E.U./dL (<1 E.U./dL) 08/27/16 18:00 Ur Leukocyte Esterase Negative Keri/uL (NEGATIVE) 08/27/16 18:00 Urine RBC 25 - 30 /hpf (0-2) 08/27/16 18:00 Urine WBC 1 - 3 /hpf (0-6) 08/27/16 18:00 Ur Epithelial Cells 0 - 2 /hpf (0-5) 08/27/16 18:00 Amorphous Sediment Trace 08/27/16 18:00 Urine Bacteria Many (NEG) 08/27/16 18:00 Urine Other Fiber 08/27/16 18:00 Vancomycin Peak 16.5 ug/mL (30.0-40.0) L 08/30/16 08:00 Vancomycin Trough 5.2 ug/mL (5.0-10.0) 08/30/16 04:35 Urine Opiates Screen Positive (NEGATIVE) H 08/27/16 18:00 Urine Methadone Screen Negative (NEGATIVE) 08/27/16 18:00 Ur Barbiturates Screen Negative (NEGATIVE) 08/27/16 18:00 Ur Phencyclidine Scrn Negative (NEGATIVE) 08/27/16 18:00 Ur Amphetamines Screen Negative (NEGATIVE) 08/27/16 18:00 U Benzodiazepines Scrn Positive (NEGATIVE) H 08/27/16 18:00 U Oth Cocaine Metabols Negative (NEGATIVE) 08/27/16 18:00 U Cannabinoids Screen Negative (NEGATIVE) 08/27/16 18:00 Alcohol, Quantitative < 10 mg/dL (0-10) 08/27/16 18:00 Attending/Attestation - Attestation I have personally seen and examined this patient.: Yes I have fully participated in the care of the patient.: Yes I have reviewed all pertinent clinical information, including history, physical exam and plan: Yes Notes (Text): 08/30/16 16:27 attending note; Patient seen and examined with resident. Patient is a 36 year old male who is admitted with LLE cellulitis/abscess. Treated with IV vancomycin and Zosyn. s/p Incision and drainage. Surgery evaluation was appreciated; Packing done . Wound culture grew MRSA. LE doppler was negative. X-rays negative for osteomyelitis. A1c is 9.1. He is started on glyburide. Diabetic education given. Supplies given. He is on lisinopril. stool for C. difficile is negative. Agoraphobia; psychiatric evaluation appreciated. Started on Xanax and Prozac. Patient refused to go to psych floor. case discussed with Dr. Smith in detail. Patient did not want Prozac or zoloft due to side effects in the past. Prescription for Xanax given. Patient will follow-up with psychiatrist as outpatient. upon discharge the patient will follow up with PMD Dr. Brady. diagnosis; MRSA Abscess Status post incision and drainage anxiety
--- NOTE | 2016-08-30 19:30 | CARD ---
APPROVED REPORT EXAM: Two-dimensional and M-mode echocardiogram with Doppler and color Doppler. INDICATION Hypertension/HCVD 2D DIMENSIONS Left Atrium (2D)4.7 (1.6-4.0cm)IVSd1.2 (0.7-1.1cm) LVDd4.0 (3.9-5.9cm)PWd1.1 (0.7-1.1cm) LVDs2.7 (2.5-4.0cm)FS (%) 32.1 % LVEF (%)60.7 (>50%) M-Mode DIMENSIONS Aortic Root3.10 (2.2-3.7cm)Aortic Cusp Exc.1.90 (1.5-2.0cm) Aortic Valve AoV Peak Lmfrbqqv955.0cm/Terri Peak GR.11mmHg Mitral Valve MV E Atyrdsnq729.0cm/sMV A Bkkpyxxc927.0cm/sE/A ratio0.9 TDI Lateral E' Peak V13.80cm/sMedial E' Peak V8.77cm/sE/Lateral E'7.4 E/Medial E'11.6 Pulmonary Valve PV Peak Pdtptoxu848.0cm/sPV Peak Grad.5mmHg Tricuspid Valve TR Peak Eothsdms417jr/sRAP [id number] Peak Gr.21mmHg [id number] LEFT VENTRICLE The left ventricle is normal size. There is mild concentric left ventricular hypertrophy. The left ventricular function is normal.EF-55-60% There is normal LV segmental wall motion. Transmitral Doppler flow pattern is Grade III-reversible restrictive diastolic dysfunction. No left ventricle thrombus noted on this study. There is no ventricular septal defect visualized. There is no left ventricular aneurysm. There is no mass noted in the left ventricle. RIGHT VENTRICLE The right ventricle is normal size. There is normal right ventricular wall thickness. The right ventricular systolic function is normal. ATRIA The left atrium is mildly dilated. The right atrium size is normal. The interatrial septum is intact with no evidence for an atrial septal defect. AORTIC VALVE The aortic valve is thickened but opens well. There is trace aortic regurgitation. There is no aortic valvular stenosis. There is no aortic valvular vegetation. MITRAL VALVE The mitral valve is thickened but opens well. Mitral regurgitation is mild to moderate. There is no mitral valve stenosis. There is no evidence of mitral valve prolapse. TRICUSPID VALVE The tricuspid valve leaflets are thickened , but open well. There is mild tricuspid regurgitation.RVSP-31 mmof Hg. There is no tricuspid valve stenosis. There is no tricuspid valve prolapse or vegetation. PULMONIC VALVE The pulmonary valve is normal in structure. There is trace pulmonic valvular regurgitation. There is no pulmonic valvular stenosis. GREAT VESSELS The aortic root is normal in size. The ascending aorta is normal in size. The pulmonary artery is normal. The IVC is normal in size and collapses >50% with inspiration. PERICARDIAL EFFUSION There is no pleural effusion. There is no pericardial effusion. <Conclusion> The left ventricle is normal size. There is mild concentric left ventricular hypertrophy. The left ventricular function is normal.EF-55-60% There is trace aortic regurgitation. Mitral regurgitation is mild to moderate. There is mild tricuspid regurgitation.RVSP-31 mmof Hg. No Vegetation or thrombus noted.
== END 2016-08-30 14:10 | disposition home or self-care (01) | DRG 901 ==
LOC: ED 16:59 → ERH 19:47 → 5RNO 21:45
PROVIDERS: ADMIT Internal Medicine; ATTEND Internal Medicine
PROC: 0H9LXZZ Drainage of Left Lower Leg Skin, External Approach (ICD-10-PCS; principal; 2016-08-28)
DX: A41.9 Sepsis, unspecified organism (principal); L03.116 Cellulitis of left lower limb; L02.416 Cutaneous abscess of left lower limb; B95.62 Methicillin resistant Staphylococcus aureus infection as the cause of diseases classified elsewhere; R19.7 Diarrhea, unspecified; E11.9 Type 2 diabetes mellitus without complications; F40.00 Agoraphobia, unspecified; I10 Essential (primary) hypertension; Z87.891 Personal history of nicotine dependence; Z87.01 Personal history of pneumonia (recurrent); Z83.3 Family history of diabetes mellitus; Z82.49 Family history of ischemic heart disease and other diseases of the circulatory system

== ENCOUNTER 2016-11-07 11:16 | Inpatient (IN) | payer MEDICAID ==
[2016-11-07] MEDS ORDERED: Piperacillin/Tazobact 3.375 gm 100 ML IVPB STA (12:09)
[2016-11-07] MEDS ORDERED: Vancomycin 1gm in NS 250ml 1 GM/250 ML BAG IVPB STA (12:09)
[2016-11-07] MEDS ORDERED: Morphine 4 mg/ml ISec IVP STA (12:09)
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
[2016-11-07] MEDS: Sodium Chloride 0.9% 1,000 ML IV SCH (12:20)
[2016-11-07 12:25] LABS: BASO # 0.03 K/mm3 (0.0-2.0); BASO % 0.5 % (0.0-3.0); EOS # 0.1 (0.0-0.7); EOS % 2.3 % (1.5-5.0); GRAN # 3.16 (1.4-6.5); GRAN % 56.7 % (50.0-68.0); HEMATOCRIT 35.9 % (42.0-52.0); LYMPH # 1.7 (1.2-3.4); LYMPH % 30.6 % (22.0-35.0); MEAN CELL VOLUME 92.8 fl (80.0-105.0); MEAN CORPUSCULAR HGB CONC 33.4 g/dl (31.0-37.0); MEAN PLATELET VOLUME 8.9 fl (7.0-11.0); MONO # 0.6 (0.1-0.6); MONO % 9.9 % (1.0-6.0); RED CELL DISTRIBUTION WIDTH 12.8 % (11.5-14.5); WHITE BLOOD COUNT 5.6 10^3/ul (4.5-11.0)
[2016-11-07 12:28] LABS: VENOUS BLOOD GAS BASE EXCESS 4.6 mmol/L (0.0-2.0)
[2016-11-07 12:37] LABS: ALKALINE PHOSPHATASE 71 U/L (38-126); AST/SGOT 30 U/L (17-59); BILIRUBIN,TOTAL 0.7 mg/dL (0.2-1.3); BLOOD UREA NITROGEN 6 mg/dL (7-21); CALCIUM 9.5 mg/dL (8.4-10.5); CARBON DIOXIDE 29 mmol/L (21-33); CHLORIDE 100 mmol/L (98-107); GFR AFRICAN-AMERICAN > 60; GLUCOSE,RANDOM 125 mg/dL (70-110); MAGNESIUM 1.9 mg/dL (1.7-2.2); POTASSIUM 4.1 mmol/L (3.6-5.0); SODIUM 141 mmol/L (132-148); TOTAL PROTEIN 8.2 g/dL (5.8-8.3)
[2016-11-07 12:38] LABS: ALT/SGPT < 6 U/L (7-56)
--- NOTE | 2016-11-07 12:44 | RAD ---
HISTORY: medical clearance COMPARISON: 08/27/2016 FINDINGS: LUNGS: No active pulmonary disease. PLEURA: No significant pleural effusion identified, no pneumothorax apparent. CARDIOVASCULAR: Normal. OSSEOUS STRUCTURES: No significant abnormalities. VISUALIZED UPPER ABDOMEN: Normal. OTHER FINDINGS: None. IMPRESSION: No active disease.
[2016-11-07] MEDS ORDERED: Vancomycin 1gm in NS 250ml 1 GM/250 ML BAG IVPB SCH (15:45)
[2016-11-07] MEDS ORDERED: Morphine 2 mg/ml ISec IVP PRN ×2 (15:55→19:38)
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
[2016-11-07 16:37] LABS: VENOUS BLOOD GAS BASE EXCESS 7.4 mmol/L (0.0-2.0); VENOUS BLOOD PH 7.42 (7.32-7.43)
[2016-11-07 16:48] LABS: CHOLESTEROL 164 mg/dL (130-200)
[2016-11-07] MEDS: Insulin Reg-LOW-Coverage SC SCH ×2 (16:50→22:00)
[2016-11-07] MEDS: Meropenem 500 MG in Sodium Chloride 0.9% 100 ML IVPB SCH ×2 (16:50→23:19)
--- NOTE | 2016-11-07 16:51 | US ---
HISTORY: Leg pain and swelling. Evaluate for DVT PHYSICIAN(S): Lee Cooney MD. TECHNIQUE: Duplex sonography and color-flow Doppler with graded compression were used to evaluate the deep venous systems of both lower extremities. FINDINGS: The visualized deep venous systems of both lower extremities are sonographically normal and compressible. Normal wave forms and augmentation are seen. There is no sonographic evidence for deep venous thrombosis in the visualized segments of both lower extremities. IMPRESSION: No sonographic evidence for deep venous thrombosis in the visualized segments of both lower extremities.
--- NOTE | 2016-11-07 16:56 | CP.PCM.CON ---
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 Surgery was consulted for abscesses on R medial thigh and L buttock at intergluteal fold, though on exam these areas were found to be ulcerated. PT admits that these ulcers began as small pimples about two weeks ago, but have opened and begun draining (bloody/ purulent) within the past two days. He experienced something similar on his lower left leg for which an I&D was done here at [facility] in August [address] Beaulieu. Wound culture at that time was +MRSA. Denies F/C/N/V/D, numbness and tingling in extremities. Pain in R leg wound, burning in L buttock wound. PMH: anxiety, depression, DM type II, asthma, HTN PSH: I&D August 2016 Social: former smoker, occasional EtOH use, denies drug use NKDA Review of Systems - Review of Systems All systems: reviewed and no additional remarkable complaints except Review of Systems: otherwise indicated in HPI. Past Patient History - Infectious Disease Hx of Infectious Diseases: None - Past Social History Smoking Status: Former Smoker - CARDIAC Hx Hypertension: Yes - PULMONARY Hx Respiratory Disorders: Yes Hx Asthma: Yes - NEUROLOGICAL Hx Neurological Disorder: No - HEENT Hx HEENT Problems: Yes Other/Comment: pt wears glasses - RENAL Hx Chronic Kidney Disease: No - ENDOCRINE/METABOLIC Hx Diabetes Mellitus Type 2: Yes - HEMATOLOGICAL/ONCOLOGICAL Hx Blood Disorders: No - INTEGUMENTARY Hx Dermatological Problems: No - MUSCULOSKELETAL/RHEUMATOLOGICAL Hx Musculoskeletal Disorders: No Hx Falls: No - GASTROINTESTINAL Hx Gastrointestinal Disorders: No - GENITOURINARY/GYNECOLOGICAL Hx Genitourinary Disorders: No - PSYCHIATRIC Hx Anxiety: Yes Hx Depression: Yes Hx Substance Use: No - SURGICAL HISTORY Hx Surgeries: No - ANESTHESIA Hx Anesthesia: No Meds Allergies/Adverse Reactions: Allergies Allergy/AdvReac Type Severity Reaction Status Date / Time No Known Allergies Allergy Verified 11/07/16 17:05 - Medications Medications: Current Medications Acetaminophen (Tylenol 325mg Tab) 650 mg PO Q6H PRN PRN Reason: Pain or Fever Alprazolam (Xanax) 0.5 mg PO QID PRN; Protocol PRN Reason: Anxiety Stop: 11/14/16 18:01 Last Admin: 11/07/16 16:25 Dose: 0.5 mg Fluoxetine HCl (Prozac) 20 mg PO DAILY [facility] Sodium Chloride (Sodium Chloride 0.9%) 1,000 mls @ 100 mls/hr IV .Q10H [facility] Last Admin: 11/07/16 12:20 Dose: 100 mls/hr Meropenem 500 mg/ Sodium (Chloride) 100 mls @ 100 mls/hr IVPB Q8 [facility] PRN Reason: Protocol Stop: 11/07/16 22:59 Vancomycin HCl (Vancomycin 1gm) 1 gm in 250 mls @ 167 mls/hr IVPB DAILY [facility] PRN Reason: Protocol Insulin Human Regular (Humulin R Low) 0 units SC ACHS [facility] PRN Reason: Protocol Losartan Potassium (Cozaar) 50 mg PO DAILY [facility] Morphine Sulfate (Morphine) 1 mg IVP Q6 PRN PRN Reason: Pain, severe (8-10) Last Admin: 11/07/16 16:25 Dose: 1 mg Physical Exam - Constitutional Appears: Non-toxic, No Acute Distress - Head Exam Head Exam: ATRAUMATIC, NORMOCEPHALIC - Eye Exam Eye Exam: EOMI, Normal appearance. absent: Conjunctival injection - ENT Exam ENT Exam: Mucous Membranes Moist - Respiratory Exam Respiratory Exam: NORMAL BREATHING PATTERN. absent: Accessory Muscle Use - Cardiovascular Exam Cardiovascular Exam: absent: Bradycardia, Tachycardia - GI/Abdominal Exam GI & Abdominal Exam: Soft. absent: Distended, Firm, Guarding, Rebound, Rigid, Tenderness - Extremities Exam Additional comments: R thigh wound: [id number] depth; stage II ulcer with 1cm band of surrounding erythema; small amount of bloody/purulent drainage on dressing; no crepitus, no tracking. L buttock wound: [id number] depth; wound tracks approximately 2-3cm circumstantially; minimal purulent drainage on dressing; surrounding erythema, no crepitus, no fluctuance; small piece of necrotic tissue removed from wound opening. - Neurological Exam Neurological exam: Alert, Normal Gait, Oriented x3 - Psychiatric Exam Psychiatric exam: Anxious, Normal Affect, Normal Mood - Skin Skin Exam: Dry, Intact, Normal Color, Warm Results - Vital Signs Recent Vital Signs: Last Vital Signs Temp 98.5 F 11/07/16 14:47 Pulse 92 H 11/07/16 14:47 Resp 18 11/07/16 14:47 BP 147/82 11/07/16 14:47 Pulse Ox 100 11/07/16 14:47 - Labs Result Diagrams: 11/07/16 11:52 11/07/16 11:52 Labs: Laboratory Results - last 24 hr 11/07/16 16:29 pO2 18 L VBG pH 7.42 VBG pCO2 51.0 VBG HCO3 33.1 H VBG Total CO2 34.7 H VBG O2 Sat (Calc) 26.9 L VBG Base Excess 7.4 H VBG Potassium 4.8 Sodium 140.0 Chloride 104.0 Glucose 112 H Lactate 2.2 H FiO2 21.0 Venous Blood Potassium 4.8 Assessment & Plan - Assessment and Plan (Free Text) Assessment: 36 yo M with PMH anxiety, depression, asthma, HTN, DM type II evaluated for ulcers on R thigh and L buttock. Plan: -washout L buttock wound with sterile saline & pack with iodoform packing -silvadene to R thigh wound -continue IV Abx -await results of wound cultures -pain control PRN -medical mgmt per primary team Will D/W Dr. Lizama. Denise Andrade, PGY 1 - Date & Time Date: 11/07/16 Time: 17:09
[2016-11-07] MEDS: Silver Sulfadiazine 1% Cream (20 gm) TOP SCH (18:39)
[2016-11-07 19:02] VITALS: BMI 27.6
[2016-11-07] MEDS ORDERED: Pneumococcal 23-Valent Vaccine IM ONE (19:02)
[2016-11-07] MEDS ORDERED: Barium Sulfate Susp 2.1% w/v, 2.0% w/w 450 mL Bottle PO ONE (21:14)
[2016-11-07] MEDS: Morphine 4 mg/ml ISec IM PRN (21:28)
[2016-11-07] MEDS: Vancomycin 1gm in NS 250ml 1 GM/250 ML BAG IVPB SCH (21:34)
[2016-11-08] MEDS: Piperacillin/Tazobact 3.375 gm 100 ML IVPB SCH ×4 (00:59→18:56)
[2016-11-08 02:05] LABS: VENOUS BLOOD GAS BASE EXCESS 10.2 mmol/L (0.0-2.0)
[2016-11-08] MEDS: Morphine 4 mg/ml ISec IM PRN ×3 (04:16→18:17)
[2016-11-08] MEDS: Sodium Chloride 0.9% 1,000 ML IV SCH (05:36)
--- NOTE | 2016-11-08 08:01 | CP.PCM.PN ---
Subjective - Date & Time of Evaluation Date of Evaluation: 11/08/16 Time of Evaluation: 07:58 - Subjective Subjective: General Surgery consult for Dr. Lizama PT S&E at bedside [id number]. Patient had dressing changed at bedside. Patient expresses anxiety over CT. Objective - Vital Signs/Intake and Output Vital Signs (last 24 hours): Temp Pulse Resp BP Pulse Ox 99.5 F 89 18 173/94 H 98 11/07/16 18:19 11/07/16 18:19 11/07/16 18:19 11/07/16 18:19 11/07/16 17:38 Intake and Output: 11/08/16 11/08/16 06:59 18:59 Intake Total 600 Balance 600 - Medications Medications: Current Medications Acetaminophen (Tylenol 325mg Tab) 650 mg PO Q6H PRN PRN Reason: Pain or Fever Last Admin: 11/08/16 01:04 Dose: 650 mg Alprazolam (Xanax) 0.5 mg PO QID PRN; Protocol PRN Reason: Anxiety Stop: 11/14/16 18:01 Last Admin: 11/07/16 21:59 Dose: 0.5 mg Fluoxetine HCl (Prozac) 20 mg PO DAILY [facility] Sodium Chloride (Sodium Chloride 0.9%) 1,000 mls @ 100 mls/hr IV .Q10H [facility] Last Admin: 11/08/16 05:36 Dose: 100 mls/hr Vancomycin HCl (Vancomycin 1gm) 1 gm in 250 mls @ 167 mls/hr IVPB Q12H [facility] PRN Reason: Protocol Stop: 11/16/16 21:16 Last Admin: 11/07/16 21:34 Dose: 167 mls/hr Piperacillin Sod/Tazobactam Sod (Zosyn 3.375 In Ns 100ml) 100 mls @ 200 mls/hr IVPB Q6 [facility] PRN Reason: Protocol Stop: 11/17/16 00:01 Last Admin: 11/08/16 05:38 Dose: 200 mls/hr Insulin Human Regular (Humulin R Low) 0 units SC ACHS [facility] PRN Reason: Protocol Last Admin: 11/07/16 22:00 Dose: Not Given Losartan Potassium (Cozaar) 50 mg PO DAILY [facility] Morphine Sulfate (Morphine) 4 mg IM Q6H PRN PRN Reason: Pain, severe (8-10) Last Admin: 11/08/16 04:16 Dose: 4 mg Pantoprazole Sodium (Protonix Ec Tab) 40 mg PO 0600 [facility] Silver Sulfadiazine (Silvadene 1% 20 Gm) 1 ea TOP DAILY [facility] Last Admin: 11/07/16 18:39 Dose: 1 applic - Constitutional Appears: No Acute Distress - Head Exam Head Exam: NORMAL INSPECTION - Eye Exam Eye Exam: EOMI, Normal appearance - ENT Exam ENT Exam: Mucous Membranes Moist - Respiratory Exam Respiratory Exam: NORMAL BREATHING PATTERN. absent: Accessory Muscle Use, Respiratory Distress - Cardiovascular Exam Cardiovascular Exam: REGULAR RHYTHM. absent: Bradycardia, Tachycardia - GI/Abdominal Exam GI & Abdominal Exam: Soft, Normal Bowel Sounds. absent: Guarding, Tenderness, Rebound - Extremities Exam Extremities Exam: Full ROM, Normal Inspection. absent: Pedal Edema - Neurological Exam Neurological Exam: Alert, Awake, Oriented x3 - Psychiatric Exam Psychiatric exam: Normal Affect, Normal Mood - Skin Skin Exam: Dry, Intact, Normal Color, Warm Assessment and Plan - Assessment and Plan (Free Text) Assessment: 36 yo M with PMH anxiety, depression, asthma, HTN, DM type II evaluated for ulcers on R thigh and L buttock. Plan: -washout L buttock wound with sterile saline & pack with iodoform packing -silvadene to R thigh wound -continue IV Abx -await results of wound cultures -c/w pain control PRN -c/w medical management per primary team Will D/W Dr. Lizama. Denise Andrade, PGY 1
[2016-11-08] MEDS: Insulin Reg-LOW-Coverage SC SCH ×4 (09:35→22:47)
[2016-11-08] MEDS: Pantoprazole 40 mg EC Tab PO SCH (09:41)
[2016-11-08] MEDS: Vancomycin 1gm in NS 250ml 1 GM/250 ML BAG IVPB SCH ×2 (09:41→20:22)
--- NOTE | 2016-11-08 09:52 | CT ---
PROCEDURE: CT Abdomen and Pelvis without intravenous contrast HISTORY: collection COMPARISON: None. TECHNIQUE: Without contrast.. Contrast Dose: Radiation dose: Total exam DLP = 797 mGy-cm. This CT exam was performed using one or more of the following dose reduction techniques: Automated exposure control, adjustment of the mA and/or kV according to patient size, and/or use of iterative reconstruction technique. FINDINGS: LOWER THORAX: Unremarkable. LIVER: Unremarkable. No gross lesion or ductal dilatation. GALLBLADDER AND BILE DUCTS: Unremarkable. PANCREAS: Unremarkable. No gross lesion or ductal dilatation. SPLEEN: Unremarkable. ADRENALS: Unremarkable. No mass. KIDNEYS AND URETERS: Unremarkable. No hydronephrosis. No solid mass. VASCULATURE: Unremarkable. No aortic aneurysm. BOWEL: Unremarkable. No obstruction. No gross mural thickening. APPENDIX: Unremarkable. Normal appendix. PERITONEUM: Unremarkable. No free fluid. No free air. LYMPH NODES: Mildly enlarged lymph nodes are seen in the upper abdomen adjacent to the stomach in the celiac axis. Significance uncertain BLADDER: Unremarkable. REPRODUCTIVE: Unremarkable. BONES: No acute fracture. OTHER FINDINGS: There is a decubitus ulcer over the sacrum which contains air. There is no bony destruction of the adjacent sacrum and coccyx IMPRESSION: Mild adenopathy adjacent to the stomach and celiac axis. Decubitus ulcer over the sacrum. No evidence of intra-abdominal abscess or infection
[2016-11-08 11:44] LABS: HEMATOCRIT 31.3 % (42.0-52.0); MEAN CELL VOLUME 95.7 fl (80.0-105.0); MEAN CORPUSCULAR HEMOGLOBIN 31.2 pg (25.0-35.0); MEAN CORPUSCULAR HGB CONC 32.6 g/dl (31.0-37.0); RED CELL DISTRIBUTION WIDTH 13.3 % (11.5-14.5); WHITE BLOOD COUNT 4.7 10^3/ul (4.5-11.0)
[2016-11-08 11:53] LABS: ALKALINE PHOSPHATASE 52 U/L (38-126); ALT/SGPT 28 U/L (7-56); AST/SGOT 32 U/L (17-59); BILIRUBIN,TOTAL 0.8 mg/dL (0.2-1.3); BLOOD UREA NITROGEN 7 mg/dL (7-21); CALCIUM 8.7 mg/dL (8.4-10.5); CARBON DIOXIDE 31 mmol/L (21-33); CHLORIDE 100 mmol/L (98-107); GFR AFRICAN-AMERICAN > 60; GLUCOSE,RANDOM 108 mg/dL (70-110); SODIUM 139 mmol/L (132-148); TOTAL PROTEIN 7.1 g/dL (5.8-8.3)
--- NOTE | 2016-11-08 12:04 | RAD ---
PROCEDURE: Radiographs of the pelvis. HISTORY: R/o osteo COMPARISON: None. FINDINGS: BONES: Pelvic Bones: Unremarkable. Hips: Grossly unremarkable. JOINTS: Sacroiliac Joints: Unremarkable. Pubic Symphysis: Unremarkable. OTHER FINDINGS: None. IMPRESSION: Unremarkable radiographs of the pelvis.
--- NOTE | 2016-11-08 12:06 | RAD ---
PROCEDURE: Bilateral femurs HISTORY: R/o Osteo COMPARISON: November 07, 2016. Plain film radiographs pelvis. November 08, 2016. CT abdomen and pelvis TECHNIQUE: Standard protocol for this study/examination. FINDINGS: No significant/acute osseous, articular or soft tissue abnormalities. IMPRESSION: No acute findings related to/accounting for the clinical presentation.
[2016-11-08] MEDS: Silver Sulfadiazine 1% Cream (20 gm) TOP SCH (14:43)
--- NOTE | 2016-11-08 16:34 | CP.PCM.PN ---
<Mary García - Last Filed: 11/08/16 16:36> Subjective - Date & Time of Evaluation Date of Evaluation: 11/08/16 Time of Evaluation: 16:30 - Subjective Subjective: Pt was seen and examined at bedside. Today, he reports improvement of pain from the wounds, and denies fever or chills. Pt additionally states that he had diarrhea yesterday, likely 2/2 CT PO contrast. Pt has been hypertensive in the hospital, (bp = 170's/90's), however, he denies headache, nausea, vomiting, chest pain, palpitations, SOB, abdominal pain, new rashes, or other complaints. Pt has been seen by surgical team, who packed the buttock wound, which patient has been tolerating well. Objective - Vital Signs/Intake and Output Vital Signs (last 24 hours): Temp Pulse Resp BP Pulse Ox 99.5 F 87 18 170/95 H 98 11/07/16 18:19 11/08/16 09:40 11/07/16 18:19 11/08/16 09:40 11/07/16 17:38 Intake and Output: 11/08/16 11/08/16 06:59 18:59 Intake Total 1775 480 Balance 1775 480 - Medications Medications: Current Medications Acetaminophen (Tylenol 325mg Tab) 650 mg PO Q6H PRN PRN Reason: Pain or Fever Last Admin: 11/08/16 11:13 Dose: 650 mg Alprazolam (Xanax) 0.5 mg PO QID PRN; Protocol PRN Reason: Anxiety Stop: 11/14/16 18:01 Last Admin: 11/08/16 14:46 Dose: 0.5 mg Fluoxetine HCl (Prozac) 20 mg PO DAILY [facility] Last Admin: 11/08/16 09:40 Dose: 20 mg Vancomycin HCl (Vancomycin 1gm) 1 gm in 250 mls @ 167 mls/hr IVPB Q12H [facility] PRN Reason: Protocol Stop: 11/16/16 21:16 Last Admin: 11/08/16 09:41 Dose: 167 mls/hr Piperacillin Sod/Tazobactam Sod (Zosyn 3.375 In Ns 100ml) 100 mls @ 200 mls/hr IVPB Q6 [facility] PRN Reason: Protocol Stop: 11/17/16 00:01 Last Admin: 11/08/16 14:37 Dose: 200 mls/hr Insulin Human Regular (Humulin R Low) 0 units SC ACHS [facility] PRN Reason: Protocol Last Admin: 11/08/16 11:30 Dose: Not Given Losartan Potassium (Cozaar) 50 mg PO DAILY [facility] Last Admin: 11/08/16 09:40 Dose: 50 mg Morphine Sulfate (Morphine) 4 mg IM Q6H PRN PRN Reason: Pain, severe (8-10) Last Admin: 11/08/16 11:10 Dose: 4 mg Morphine Sulfate (Morphine) 2 mg IVP Q6H PRN PRN Reason: Pain, moderate (4-7) Pantoprazole Sodium (Protonix Ec Tab) 40 mg PO 0600 [facility] Last Admin: 11/08/16 09:41 Dose: 40 mg Silver Sulfadiazine (Silvadene 1% 20 Gm) 1 ea TOP DAILY [facility] Last Admin: 11/08/16 14:43 Dose: 1 applic - Labs Labs: 11/08/16 09:00 11/08/16 09:00 - Constitutional Appears: Well, Non-toxic, No Acute Distress - Head Exam Head Exam: ATRAUMATIC, NORMAL INSPECTION, NORMOCEPHALIC - Eye Exam Eye Exam: EOMI, Normal appearance - Respiratory Exam Respiratory Exam: Clear to Ausculation Bilateral. absent: Rales, Rhonchi, Wheezes - Cardiovascular Exam Cardiovascular Exam: RRR, +S1, +S2 - GI/Abdominal Exam GI & Abdominal Exam: Soft. absent: Tenderness, Organomegaly - Extremities Exam Extremities Exam: Normal Capillary Refill. absent: Pedal Edema - Back Exam Back Exam: absent: CVA tenderness (L), CVA tenderness (R) - Neurological Exam Neurological Exam: Alert, Awake, Oriented x3 - Psychiatric Exam Psychiatric exam: Anxious, Normal Affect - Skin Additional comments: Warm, dry. (+) 1x1cm wound to the L wrist, not actively draining; (+) 4x6cm ulcerated wound to R thigh, packed; (+) 2x2cm deep wound to the L buttock, currently packed. Assessment and Plan - Assessment and Plan (Free Text) Assessment: 36 yo M with significant PMH for DM, HTN, anxiety, depression, and agoraphobia, admitted for evaluation and treatment of multiple abscesses Plan: 1. Abscesses to R thigh, L buttock, L wrist, unknown etiology - Nasal swab (+) for MRSA, pt was placed on contact precautions - WBC today = 4.7 - CT shows no osteomyelitis - Procalcitonin <0.05 - HIV screen negative - Pending wound cx - Continue Vancomycin, d/c Meropenem - Pt was seen by surgery & ID, they will continue to follow -wound care 2. Acute Hypertension (UE=719/95) - Pt was given home meds (Losartan 50mg), BP continues to be high afterwards ( 162/92) - Elevated BP likely 2/2 fluids; Monitor BP 3. H/O diabetes mellitus - POC glucose = 142 - continue insulin sliding scale - HbA1c = 6.7 - Lipid panel: GL=323, Rkgn=789, LDL=93, HDL=38 - Continue HHD 4. H/O anxiety/depression - Continue home medications - Psychiatry consulted Patient seen, examine, and reviewed with attending. Mary García PGY-1 <Jaxson Bray - Last Filed: 11/08/16 17:44> Objective - Vital Signs/Intake and Output Vital Signs (last 24 hours): Temp Pulse Resp BP Pulse Ox 99.1 F 97 H 20 156/105 H 98 11/08/16 17:11 11/08/16 17:11 11/08/16 17:11 11/08/16 17:11 11/08/16 17:11 Intake and Output: 11/08/16 11/08/16 06:59 18:59 Intake Total 1775 480 Balance 1775 480 - Medications Medications: Current Medications Acetaminophen (Tylenol 325mg Tab) 650 mg PO Q6H PRN PRN Reason: Pain or Fever Last Admin: 11/08/16 11:13 Dose: 650 mg Alprazolam (Xanax) 0.5 mg PO QID PRN; Protocol PRN Reason: Anxiety Stop: 11/14/16 18:01 Last Admin: 11/08/16 14:46 Dose: 0.5 mg Fluoxetine HCl (Prozac) 20 mg PO DAILY [facility] Last Admin: 11/08/16 09:40 Dose: 20 mg Vancomycin HCl (Vancomycin 1gm) 1 gm in 250 mls @ 167 mls/hr IVPB Q12H [facility] PRN Reason: Protocol Stop: 11/16/16 21:16 Last Admin: 11/08/16 09:41 Dose: 167 mls/hr Piperacillin Sod/Tazobactam Sod (Zosyn 3.375 In Ns 100ml) 100 mls @ 200 mls/hr IVPB Q6 [facility] PRN Reason: Protocol Stop: 11/17/16 00:01 Last Admin: 11/08/16 14:37 Dose: 200 mls/hr Insulin Human Regular (Humulin R Low) 0 units SC ACHS [facility] PRN Reason: Protocol Last Admin: 11/08/16 11:30 Dose: Not Given Losartan Potassium (Cozaar) 50 mg PO DAILY [facility] Last Admin: 11/08/16 09:40 Dose: 50 mg Morphine Sulfate (Morphine) 4 mg IM Q6H PRN PRN Reason: Pain, severe (8-10) Last Admin: 11/08/16 11:10 Dose: 4 mg Morphine Sulfate (Morphine) 2 mg IVP Q6H PRN PRN Reason: Pain, moderate (4-7) Pantoprazole Sodium (Protonix Ec Tab) 40 mg PO 0600 [facility] Last Admin: 11/08/16 09:41 Dose: 40 mg Silver Sulfadiazine (Silvadene 1% 20 Gm) 1 ea TOP DAILY [facility] Last Admin: 11/08/16 14:43 Dose: 1 applic - Labs Labs: 11/08/16 09:00 11/08/16 09:00 Attending/Attestation - Attestation I have personally seen and examined this patient.: Yes I have fully participated in the care of the patient.: Yes I have reviewed all pertinent clinical information, including history, physical exam and plan: Yes Notes (Text): I have seen and examined the patient with the resident. Agree with the note above with the following additions/ exceptions: Briefly this is 36 year old male with history of DM-2, HTN, anxiety, depression, agoraphobia who was admitted for evaluation of skin ulcers in the right thigh and left buttock. Continue vanco and zosyn. ID and surgery on board. Surgery team is doing daily packing changes. HBA1C 6.7. BP was noticed to be high. Stop IVF. Monitor BP and adjust meds tomorrow if needed. Pych consult pending for depression and anxiety. He denies suicidal ideation. Upon discharge patient will follow up with Dr Aly. Dr Jaxson Bray
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
--- NOTE | 2016-11-08 21:07 | CARD ---
APPROVED REPORT EKG Measurement Heart [id number] <Conclusion> Normal sinus rhythm Possible Left atrial enlargement Borderline ECG
[2016-11-08 22:16] LABS: IRON 67 ug/dL (45-180)
[2016-11-09] MEDS: Piperacillin/Tazobact 3.375 gm 100 ML IVPB SCH ×4 (00:07→17:11)
[2016-11-09] MEDS: Morphine 4 mg/ml ISec IM PRN ×2 (00:07→06:46)
[2016-11-09 06:44] LABS: ALKALINE PHOSPHATASE 51 U/L (38-126); ALT/SGPT 29 U/L (7-56); AST/SGOT 27 U/L (17-59); BILIRUBIN,TOTAL 0.6 mg/dL (0.2-1.3); BLOOD UREA NITROGEN 9 mg/dL (7-21); CALCIUM 8.6 mg/dL (8.4-10.5); CARBON DIOXIDE 28 mmol/L (21-33); CHLORIDE 103 mmol/L (98-107); GFR AFRICAN-AMERICAN > 60; GLUCOSE,RANDOM 142 mg/dL (70-110); POTASSIUM 4.3 mmol/L (3.6-5.0); SODIUM 140 mmol/L (132-148); TOTAL PROTEIN 7.1 g/dL (5.8-8.3)
[2016-11-09] MEDS: Pantoprazole 40 mg EC Tab PO SCH (06:46)
[2016-11-09 06:51] LABS: HEMATOCRIT 30.5 % (42.0-52.0); MEAN CORPUSCULAR HEMOGLOBIN 31.2 pg (25.0-35.0); MEAN CORPUSCULAR HGB CONC 32.8 g/dl (31.0-37.0); MEAN PLATELET VOLUME 8.9 fl (7.0-11.0); RED CELL DISTRIBUTION WIDTH 13.2 % (11.5-14.5); WHITE BLOOD COUNT 3.7 10^3/ul (4.5-11.0)
[2016-11-09] MEDS: Insulin Reg-LOW-Coverage SC SCH ×4 (07:58→21:55)
[2016-11-09] MEDS: Vancomycin 1gm in NS 250ml 1 GM/250 ML BAG IVPB SCH ×2 (08:30→21:38)
--- NOTE | 2016-11-09 09:49 | CP.PCM.PN ---
Subjective - Date & Time of Evaluation Date of Evaluation: 11/09/16 Time of Evaluation: 08:00 - Subjective Subjective: Patient seen and examined at bedside this morning. No complaints. No acute events over night. Objective - Vital Signs/Intake and Output Vital Signs (last 24 hours): Temp Pulse Resp BP Pulse Ox 98.5 F 80 19 161/110 H 99 11/09/16 08:13 11/09/16 08:13 11/09/16 08:13 11/09/16 08:13 11/09/16 08:13 Intake and Output: 11/09/16 11/09/16 06:59 18:59 Intake Total 420 Balance 420 - Medications Medications: Current Medications Acetaminophen (Tylenol 325mg Tab) 650 mg PO Q6H PRN PRN Reason: Pain or Fever Last Admin: 11/09/16 02:00 Dose: 650 mg Alprazolam (Xanax) 0.5 mg PO QID PRN; Protocol PRN Reason: Anxiety Stop: 11/14/16 18:01 Last Admin: 11/09/16 06:45 Dose: 0.5 mg Fluoxetine HCl (Prozac) 20 mg PO DAILY [facility] Last Admin: 11/08/16 09:40 Dose: 20 mg Vancomycin HCl (Vancomycin 1gm) 1 gm in 250 mls @ 167 mls/hr IVPB Q12H [facility] PRN Reason: Protocol Stop: 11/16/16 21:16 Last Admin: 11/09/16 08:30 Dose: 167 mls/hr Piperacillin Sod/Tazobactam Sod (Zosyn 3.375 In Ns 100ml) 100 mls @ 200 mls/hr IVPB Q6 [facility] PRN Reason: Protocol Stop: 11/17/16 00:01 Last Admin: 11/09/16 06:45 Dose: 200 mls/hr Insulin Human Regular (Humulin R Low) 0 units SC ACHS [facility] PRN Reason: Protocol Last Admin: 11/09/16 07:58 Dose: Not Given Losartan Potassium (Cozaar) 50 mg PO DAILY [facility] Last Admin: 11/08/16 09:40 Dose: 50 mg Morphine Sulfate (Morphine) 4 mg IM Q6H PRN PRN Reason: Pain, severe (8-10) Last Admin: 11/09/16 06:46 Dose: 4 mg Morphine Sulfate (Morphine) 2 mg IVP Q6H PRN PRN Reason: Pain, moderate (4-7) Pantoprazole Sodium (Protonix Ec Tab) 40 mg PO 0600 [facility] Last Admin: 11/09/16 06:46 Dose: 40 mg Silver Sulfadiazine (Silvadene 1% 20 Gm) 1 ea TOP DAILY [facility] Last Admin: 11/08/16 14:43 Dose: 1 applic - Labs Labs: 11/09/16 05:00 11/09/16 05:00 - Constitutional Appears: No Acute Distress - Head Exam Head Exam: NORMOCEPHALIC - Eye Exam Eye Exam: Normal appearance - ENT Exam ENT Exam: Mucous Membranes Moist - Respiratory Exam Respiratory Exam: NORMAL BREATHING PATTERN - Cardiovascular Exam Cardiovascular Exam: +S1, +S2 - GI/Abdominal Exam GI & Abdominal Exam: Soft - Back Exam Additional comments: gluteal ulcer right medial thigh stage II ulcer - Neurological Exam Neurological Exam: Awake, Oriented x3 - Psychiatric Exam Psychiatric exam: Normal Mood Assessment and Plan - Assessment and Plan (Free Text) Assessment: 36 yo M with PMH anxiety, depression, asthma, HTN, DM type II evaluated for ulcers on R thigh and L buttock. -local wound care, per wound care nurse -No evidence of intra-abdominal abscess on CT -Abx as per ID -c/w pain control PRN -c/w medical management per primary team Further recs per Dr. Dl Burch PGY-2
[2016-11-09] MEDS: Silver Sulfadiazine 1% Cream (20 gm) TOP SCH (09:53)
--- NOTE | 2016-11-09 11:36 | CP.PCM.PN ---
Subjective - Date & Time of Evaluation Date of Evaluation: 11/09/16 Time of Evaluation: 09:25 - Subjective Subjective: Patient was seen and examined with medical science liaison. c/O Leg pain No nausea or vomiting Objective - Vital Signs/Intake and Output Vital Signs (last 24 hours): Temp Pulse Resp BP Pulse Ox 98.5 F 80 19 161/110 H 99 11/09/16 08:13 11/09/16 09:50 11/09/16 08:13 11/09/16 09:50 11/09/16 08:13 Intake and Output: 11/09/16 11/09/16 06:59 18:59 Intake Total 420 Balance 420 - Medications Medications: Current Medications Acetaminophen (Tylenol 325mg Tab) 650 mg PO Q6H PRN PRN Reason: Pain or Fever Last Admin: 11/09/16 02:00 Dose: 650 mg Alprazolam (Xanax) 0.5 mg PO QID PRN; Protocol PRN Reason: Anxiety Stop: 11/14/16 18:01 Last Admin: 11/09/16 06:45 Dose: 0.5 mg Fluoxetine HCl (Prozac) 30 mg PO DAILY [facility] Last Admin: 11/09/16 10:18 Dose: Not Given Vancomycin HCl (Vancomycin 1gm) 1 gm in 250 mls @ 167 mls/hr IVPB Q12H [facility] PRN Reason: Protocol Stop: 11/16/16 21:16 Last Admin: 11/09/16 08:30 Dose: 167 mls/hr Piperacillin Sod/Tazobactam Sod (Zosyn 3.375 In Ns 100ml) 100 mls @ 200 mls/hr IVPB Q6 [facility] PRN Reason: Protocol Stop: 11/17/16 00:01 Last Admin: 11/09/16 06:45 Dose: 200 mls/hr Insulin Human Regular (Humulin R Low) 0 units SC ACHS [facility] PRN Reason: Protocol Last Admin: 11/09/16 07:58 Dose: Not Given Losartan Potassium (Cozaar) 50 mg PO DAILY [facility] Last Admin: 11/09/16 09:50 Dose: 50 mg Morphine Sulfate (Morphine) 4 mg IM Q6H PRN PRN Reason: Pain, severe (8-10) Last Admin: 11/09/16 06:46 Dose: 4 mg Morphine Sulfate (Morphine) 2 mg IVP Q6H PRN PRN Reason: Pain, moderate (4-7) Pantoprazole Sodium (Protonix Ec Tab) 40 mg PO 0600 [facility] Last Admin: 11/09/16 06:46 Dose: 40 mg Silver Sulfadiazine (Silvadene 1% 20 Gm) 1 ea TOP DAILY [facility] Last Admin: 11/09/16 09:53 Dose: 1 applic - Labs Labs: 11/09/16 05:00 11/09/16 05:00 - Constitutional Appears: No Acute Distress - Head Exam Head Exam: NORMAL INSPECTION, NORMOCEPHALIC - Eye Exam Pupil Exam: NORMAL ACCOMODATION - ENT Exam ENT Exam: Mucous Membranes Moist - Neck Exam Neck Exam: Full ROM - Respiratory Exam Respiratory Exam: Clear to Ausculation Bilateral, NORMAL BREATHING PATTERN - Cardiovascular Exam Cardiovascular Exam: REGULAR RHYTHM - GI/Abdominal Exam GI & Abdominal Exam: Soft, Normal Bowel Sounds - Extremities Exam Extremities Exam: Full ROM Additional comments: gluteal ulcer right medial thigh stage II ulcer - Neurological Exam Neurological Exam: Alert, Awake, CN II-XII Intact, Oriented x3 (non focal) Assessment and Plan - Assessment and Plan (Free Text) Assessment: 36 yo M with PMH anxiety, depression, asthma, HTN, DM type II evaluated for ulcers on R thigh and L buttock. -local wound care, per wound care nurse -No evidence of intra-abdominal abscess on C Wound cultures growing MRSA On IV Vancomycin and Zosyn as per ID 2.DM on sliding scale will resume home Glyburide will monitor and adjust medications 3.HTN Blood pressure is running high on Losartan 50 mg po daily, will increase dose to 75 mg po daily Will monitor and adjust medication 4.DVT Prophylaxis will start on lovenox 40 mg SC daily. Management plan was discussed in detail with patient Education was provided.
[2016-11-09] MEDS: Enoxaparin 40 mg Syringe SC SCH (12:23)
[2016-11-09] MEDS: Morphine 2 mg/ml ISec IVP PRN ×3 (12:24→23:31)
[2016-11-09 12:53] LABS: FOLATE 8.3 ng/mL
--- NOTE | 2016-11-09 18:25 | CP.PCM.PN ---
Subjective - Date & Time of Evaluation Date of Evaluation: 11/09/16 Time of Evaluation: 10:55 - Subjective Subjective: Less pain in the right thigh and left gluteal area, no fevers overnight. Objective - Vital Signs/Intake and Output Vital Signs (last 24 hours): Temp Pulse Resp BP Pulse Ox 99.1 F 97 H 20 156/105 H 98 11/08/16 17:11 11/08/16 17:11 11/08/16 17:11 11/08/16 17:11 11/08/16 17:11 Intake and Output: 11/08/16 11/09/16 18:59 06:59 Intake Total 480 Balance 480 - Medications Medications: Current Medications Acetaminophen (Tylenol 325mg Tab) 650 mg PO Q6H PRN PRN Reason: Pain or Fever Last Admin: 11/08/16 11:13 Dose: 650 mg Alprazolam (Xanax) 0.5 mg PO QID PRN; Protocol PRN Reason: Anxiety Stop: 11/14/16 18:01 Last Admin: 11/08/16 14:46 Dose: 0.5 mg Fluoxetine HCl (Prozac) 20 mg PO DAILY [facility] Last Admin: 11/08/16 09:40 Dose: 20 mg Vancomycin HCl (Vancomycin 1gm) 1 gm in 250 mls @ 167 mls/hr IVPB Q12H [facility] PRN Reason: Protocol Stop: 11/16/16 21:16 Last Admin: 11/08/16 09:41 Dose: 167 mls/hr Piperacillin Sod/Tazobactam Sod (Zosyn 3.375 In Ns 100ml) 100 mls @ 200 mls/hr IVPB Q6 [facility] PRN Reason: Protocol Stop: 11/17/16 00:01 Last Admin: 11/08/16 18:56 Dose: 200 mls/hr Insulin Human Regular (Humulin R Low) 0 units SC ACHS [facility] PRN Reason: Protocol Last Admin: 11/08/16 17:52 Dose: Not Given Losartan Potassium (Cozaar) 50 mg PO DAILY [facility] Last Admin: 11/08/16 09:40 Dose: 50 mg Morphine Sulfate (Morphine) 4 mg IM Q6H PRN PRN Reason: Pain, severe (8-10) Last Admin: 11/08/16 18:17 Dose: 4 mg Morphine Sulfate (Morphine) 2 mg IVP Q6H PRN PRN Reason: Pain, moderate (4-7) Pantoprazole Sodium (Protonix Ec Tab) 40 mg PO 0600 [facility] Last Admin: 11/08/16 09:41 Dose: 40 mg Silver Sulfadiazine (Silvadene 1% 20 Gm) 1 ea TOP DAILY [facility] Last Admin: 11/08/16 14:43 Dose: 1 applic - Labs Labs: 11/08/16 09:00 11/08/16 09:00 - Constitutional Appears: Non-toxic, No Acute Distress - Head Exam Head Exam: NORMAL INSPECTION - ENT Exam ENT Exam: Mucous Membranes Moist - Neck Exam Neck Exam: absent: Meningismus - Respiratory Exam Respiratory Exam: Decreased Breath Sounds - Cardiovascular Exam Cardiovascular Exam: +S1, +S2 - GI/Abdominal Exam GI & Abdominal Exam: Soft. absent: Tenderness Assessment and Plan - Assessment and Plan (Free Text) Plan: Assessment Right thigh, left wrist and left gluteal area skin and soft tissue infection, slowly improving; growing MRSA DM HTN anxiety disorder history of depression history of skin abscesses with MRSA Plan continue Vancomycin day 2; Discussed with Dr. Bray and dr. Sanchez- would recommend Bactroban to the nares and on discharge, chlorhexidine soap; can be switched to PO doxycycline on discharge will continue to monitor clinically
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
[2016-11-10] MEDS: Oxycodone/Acetaminophen 5/325 mg Tab PO PRN ×3 (05:10→19:59)
[2016-11-10] MEDS: Pantoprazole 40 mg EC Tab PO SCH (05:10)
[2016-11-10 06:35] LABS: HEMATOCRIT 32.3 % (42.0-52.0); MEAN CELL VOLUME 94.7 fl (80.0-105.0); MEAN CORPUSCULAR HEMOGLOBIN 30.8 pg (25.0-35.0); MEAN CORPUSCULAR HGB CONC 32.5 g/dl (31.0-37.0); MEAN PLATELET VOLUME 9.1 fl (7.0-11.0); RED CELL DISTRIBUTION WIDTH 13.2 % (11.5-14.5); WHITE BLOOD COUNT 4.6 10^3/ul (4.5-11.0)
[2016-11-10 07:01] LABS: ALB/GLOB RATIO 1.1 (1.1-1.8); ALKALINE PHOSPHATASE 54 U/L (38-126); ALT/SGPT 29 U/L (7-56); AST/SGOT 27 U/L (17-59); BILIRUBIN,TOTAL 0.5 mg/dL (0.2-1.3); BLOOD UREA NITROGEN 7 mg/dL (7-21); CALCIUM 9.1 mg/dL (8.4-10.5); CARBON DIOXIDE 32 mmol/L (21-33); CHLORIDE 101 mmol/L (98-107); GFR AFRICAN-AMERICAN > 60; GLUCOSE,RANDOM 106 mg/dL (70-110); POTASSIUM 4.1 mmol/L (3.6-5.0); SODIUM 144 mmol/L (132-148); TOTAL PROTEIN 7.7 g/dL (5.8-8.3)
[2016-11-10] MEDS: Insulin Reg-LOW-Coverage SC SCH ×4 (07:28→22:05)
--- NOTE | 2016-11-10 08:35 | CP.PCM.PN ---
Subjective - Date & Time of Evaluation Date of Evaluation: 11/10/16 Time of Evaluation: 07:15 - Subjective Subjective: General sx progress note for Dr. Ruel Jennings, PGY-1 Pt S & E at bedside. Pt reports some burning pain of the right anterior thigh wound, discomfort from the packing of the left buttock wound- causing poor sleep quality. Denies N/V/F /C, SOB, CP, ab pain, other complaints. Right thigh wound with moderate amount of serous drainage; left buttock packing with moderate amount of serous strike through with scant sanguinous strike through. Ambulating. Tolerating diet. Objective - Vital Signs/Intake and Output Vital Signs (last 24 hours): Temp Pulse Resp BP Pulse Ox 99 F 84 18 170/90 H 97 11/10/16 07:48 11/10/16 07:48 11/10/16 07:48 11/10/16 07:48 11/10/16 07:48 Intake and Output: 11/10/16 11/10/16 06:59 18:59 Intake Total 240 Balance 240 - Medications Medications: Current Medications Acetaminophen (Tylenol 325mg Tab) 650 mg PO Q6H PRN PRN Reason: Pain or Fever Last Admin: 11/09/16 20:02 Dose: 650 mg Alprazolam (Xanax) 0.5 mg PO QID PRN; Protocol PRN Reason: Anxiety Stop: 11/14/16 18:01 Last Admin: 11/10/16 00:16 Dose: 0.5 mg Enoxaparin Sodium (Lovenox) 40 mg SC DAILY [facility] PRN Reason: Protocol Last Admin: 11/09/16 12:23 Dose: 40 mg Fluoxetine HCl (Prozac) 30 mg PO DAILY [facility] Last Admin: 11/09/16 10:18 Dose: Not Given Glyburide (Micronase) 2.5 mg PO 0800,1700 [facility] Last Admin: 11/09/16 17:11 Dose: 2.5 mg Vancomycin HCl (Vancomycin 1gm) 1 gm in 250 mls @ 167 mls/hr IVPB Q12H [facility] PRN Reason: Protocol Stop: 11/16/16 21:16 Last Admin: 11/09/16 21:38 Dose: 167 mls/hr Insulin Human Regular (Humulin R Low) 0 units SC ACHS [facility] PRN Reason: Protocol Last Admin: 11/10/16 07:28 Dose: Not Given Losartan Potassium (Cozaar) 75 mg PO DAILY [facility] Morphine Sulfate (Morphine) 2 mg IVP Q6H PRN PRN Reason: Pain, moderate (4-7) Last Admin: 11/09/16 23:31 Dose: 2 mg Oxycodone/Acetaminophen (Percocet 5/325 Mg Tab) 1 tab PO Q4H PRN PRN Reason: Pain, severe (8-10) Last Admin: 11/10/16 05:10 Dose: 1 tab Pantoprazole Sodium (Protonix Ec Tab) 40 mg PO 0600 [facility] Last Admin: 11/10/16 05:10 Dose: 40 mg Silver Sulfadiazine (Silvadene 1% 20 Gm) 1 ea TOP DAILY [facility] Last Admin: 11/09/16 09:53 Dose: 1 applic - Labs Labs: 11/10/16 06:20 11/10/16 06:20 - Constitutional Appears: Non-toxic, No Acute Distress - Head Exam Head Exam: ATRAUMATIC, NORMAL INSPECTION, NORMOCEPHALIC - Eye Exam Eye Exam: EOMI, Normal appearance - ENT Exam ENT Exam: Mucous Membranes Moist, Normal Exam - Neck Exam Neck Exam: Full ROM - Respiratory Exam Respiratory Exam: Clear to Ausculation Bilateral, NORMAL BREATHING PATTERN - Cardiovascular Exam Cardiovascular Exam: REGULAR RHYTHM - GI/Abdominal Exam GI & Abdominal Exam: Soft, Normal Bowel Sounds. absent: Distended (obese), Firm , Rigid, Tenderness - Extremities Exam Extremities Exam: absent: Normal Inspection (Right anterior/medial aspect of thigh with ulcerated wound, approximately 8cm in diameter with pink base, white margins, moderate amount of serous strike through), Pedal Edema - Neurological Exam Neurological Exam: Alert, Awake, CN II-XII Intact - Psychiatric Exam Psychiatric exam: Normal Affect, Normal Mood - Skin Skin Exam: Warm. absent: Intact (Left superior gluteal cleft with wound, approximately 6x5 cm, edges undermined, pink base and margins, moderate amount of serous strike through on packing and dressing) Assessment and Plan - Assessment and Plan (Free Text) Assessment: 36M w/Right anterior thigh ulcerated wound & Left superior gluteal cleft wound Plan: Wound care as per nursing- Optifoam only to wounds, keep in place x 3-4 days Dressings changed today by surgical team Abx Pain control No surgical intervention at this time [facility]OB[facility] mgmt as per primary team DW Dr. Dl Jennings, PGY-1
[2016-11-10] MEDS: Vancomycin 1gm in NS 250ml 1 GM/250 ML BAG IVPB SCH ×2 (08:58→20:28)
[2016-11-10] MEDS: Silver Sulfadiazine 1% Cream (20 gm) TOP SCH (09:45)
[2016-11-10] MEDS: Enoxaparin 40 mg Syringe SC SCH (09:45)
[2016-11-10] MEDS: Morphine 2 mg/ml ISec IVP PRN ×2 (10:00→18:39)
--- NOTE | 2016-11-10 12:05 | CP.PCM.PN ---
<Vishal Wood - Last Filed: 11/10/16 12:17> Subjective - Date & Time of Evaluation Date of Evaluation: 11/10/16 Time of Evaluation: 10:02 - Subjective Subjective: Patient was seen and examined at bedside. Patient reporting some discomfort on the left buttock where the packing was placed as well as right thigh pain where the other wound is. The patient denies any chest pain, shortness of breath, nausea, vomiting, lightheadedness, dizziness, abdominal pain, constipation, diarrhea, or any other complaints. Objective - Vital Signs/Intake and Output Vital Signs (last 24 hours): Temp Pulse Resp BP Pulse Ox 99 F 84 18 170/90 H 97 11/10/16 07:48 11/10/16 09:03 11/10/16 07:48 11/10/16 09:03 11/10/16 07:48 Intake and Output: 11/10/16 11/10/16 06:59 18:59 Intake Total 240 Balance 240 - Medications Medications: Current Medications Acetaminophen (Tylenol 325mg Tab) 650 mg PO Q6H PRN PRN Reason: Pain or Fever Last Admin: 11/09/16 20:02 Dose: 650 mg Alprazolam (Xanax) 0.5 mg PO QID PRN; Protocol PRN Reason: Anxiety Stop: 11/14/16 18:01 Last Admin: 11/10/16 00:16 Dose: 0.5 mg Enoxaparin Sodium (Lovenox) 40 mg SC [facility]ILY [facility] PRN Reason: Protocol Last Admin: 11/10/16 09:45 Dose: 40 mg Fluoxetine HCl (Prozac) 30 mg PO DAILY [facility] Last Admin: 11/10/16 09:03 Dose: 30 mg Glyburide (Micronase) 2.5 mg PO DAILY [facility] Last Admin: 11/10/16 09:01 Dose: 2.5 mg Vancomycin HCl (Vancomycin 1gm) 1 gm in 250 mls @ 167 mls/hr IVPB Q12H [facility] PRN Reason: Protocol Stop: 11/16/16 21:16 Last Admin: 11/10/16 08:58 Dose: 167 mls/hr Insulin Human Regular (Humulin R Low) 0 units SC ACHS [facility] PRN Reason: Protocol Last Admin: 11/10/16 07:28 Dose: Not Given Losartan Potassium (Cozaar) 100 mg PO DAILY [facility] Last Admin: 11/10/16 09:03 Dose: 100 mg Morphine Sulfate (Morphine) 2 mg IVP Q6H PRN PRN Reason: Pain, moderate (4-7) Last Admin: 11/10/16 10:00 Dose: 2 mg Oxycodone/Acetaminophen (Percocet 5/325 Mg Tab) 1 tab PO Q4H PRN PRN Reason: Pain, severe (8-10) Last Admin: 11/10/16 05:10 Dose: 1 tab Pantoprazole Sodium (Protonix Ec Tab) 40 mg PO 0600 [facility] Last Admin: 11/10/16 05:10 Dose: 40 mg - Labs Labs: 11/10/16 06:20 11/10/16 06:20 - Head Exam Head Exam: ATRAUMATIC, NORMAL INSPECTION, NORMOCEPHALIC - Eye Exam Eye Exam: EOMI, Normal appearance, PERRL Pupil Exam: NORMAL ACCOMODATION, PERRL - ENT Exam ENT Exam: Mucous Membranes Moist, Normal Exam - Neck Exam Neck Exam: Full ROM, Normal Inspection. absent: Lymphadenopathy, Thyromegaly - Respiratory Exam Respiratory Exam: Clear to Ausculation Bilateral, NORMAL BREATHING PATTERN. absent: Accessory Muscle Use, Chest Wall Tenderness, Respiratory Distress - Cardiovascular Exam Cardiovascular Exam: REGULAR RHYTHM, RRR, +S1, +S2. absent: JVD, Rubs - GI/Abdominal Exam GI & Abdominal Exam: Soft, Normal Bowel Sounds. absent: Rigid, Tenderness - Rectal Exam Additional comments: Left buttock covered with bandage where packing was placed in the wound. Right thigh has bandage placed on other wound. - Extremities Exam Extremities Exam: Full ROM. absent: Joint Swelling, Tenderness - Back Exam Back Exam: NORMAL INSPECTION. absent: CVA tenderness (L), CVA tenderness (R) - Neurological Exam Neurological Exam: Awake, CN II-XII Intact, Oriented x3 - Psychiatric Exam Psychiatric exam: Normal Affect, Normal Mood - Skin Skin Exam: Dry. absent: Warm Assessment and Plan - Assessment and Plan (Free Text) Assessment: 36 yo M with significant PMH for DM, HTN, anxiety, depression, and agoraphobia, admitted for evaluation and treatment of multiple abscesses. Plan: 1. Abscesses to R thigh, L buttock, L wrist, unknown etiology - Nasal swab (+) for MRSA, pt was placed on contact precautions - WBC today = 4.7 - CT shows no osteomyelitis - HIV screen negative - Blood culture: 0 Growth after 48 hours, Abscess gram stain: Grew MRSA - Continue Vancomycin - Surgery and ID consult appreciated. -Wound care Education ordered for family members. 2. Acute Hypertension - BP remains elevated at 170/90 today. Losartan increased to 100mg PO Daily - Monitor BP with repeat VS. 3. H/O diabetes mellitus - POC glucose = 143 (Had an episode at night when his blood glucose dropped to 67 after taking DM medications) -Glyburide dosage decreased to 2.5 mg PO Daily - continue insulin sliding scale - HbA1c = 6.7 - Lipid panel: GB=628, Itwc=749, LDL=93, HDL=38 - Continue HHD 4. H/O anxiety/depression - Continue home medications - Psychiatry consult appreciated. <Wade Weathers - Last Filed: 11/11/16 15:22> Objective - Vital Signs/Intake and Output Vital Signs (last 24 hours): Temp Pulse Resp BP Pulse Ox 98.4 F 75 18 100/90 99 11/11/16 08:15 11/11/16 08:15 11/11/16 08:15 11/11/16 08:15 11/11/16 08:15 Intake and Output: 11/11/16 11/11/16 06:59 18:59 Intake Total 540 840 Balance 540 840 - Medications Medications: Current Medications Acetaminophen (Tylenol 325mg Tab) 650 mg PO Q6H PRN PRN Reason: Pain or Fever Last Admin: 11/11/16 10:10 Dose: 650 mg Alprazolam (Xanax) 0.5 mg PO QID PRN; Protocol PRN Reason: Anxiety Stop: 11/14/16 18:01 Last Admin: 11/11/16 15:05 Dose: 0.5 mg Enoxaparin Sodium (Lovenox) 40 mg SC DAILY [facility] PRN Reason: Protocol Last Admin: 11/11/16 09:31 Dose: 40 mg Fluoxetine HCl (Prozac) 30 mg PO DAILY [facility] Last Admin: 11/11/16 09:32 Dose: 30 mg Glyburide (Micronase) 2.5 mg PO DAILY [facility] Last Admin: 11/11/16 09:32 Dose: 2.5 mg Vancomycin HCl (Vancomycin 1gm) 1 gm in 250 mls @ 167 mls/hr IVPB Q12H [facility] PRN Reason: Protocol Stop: 11/16/16 21:16 Last Admin: 11/11/16 09:31 Dose: 167 mls/hr Insulin Human Regular (Humulin R Low) 0 units SC ACHS [facility] PRN Reason: Protocol Last Admin: 11/11/16 15:15 Dose: Not Given Losartan Potassium (Cozaar) 100 mg PO DAILY [facility] Last Admin: 11/11/16 09:31 Dose: 100 mg Morphine Sulfate (Morphine) 2 mg IVP Q6H PRN PRN Reason: Pain, moderate (4-7) Last Admin: 11/11/16 12:17 Dose: 2 mg Pantoprazole Sodium (Protonix Ec Tab) 40 mg PO 0600 [facility] Last Admin: 11/11/16 05:39 Dose: 40 mg - Labs Labs: 11/11/16 06:30 11/11/16 06:30 Attending/Attestation - Attestation I have personally seen and examined this patient.: Yes I have fully participated in the care of the patient.: Yes I have reviewed all pertinent clinical information, including history, physical exam and plan: Yes Notes (Text): 11/11/16 15:18 Attending note; Patient seen and examined with resident. Patient is a 36 year old male with history of DM-2, HTN, anxiety, depression, agoraphobia who was admitted for evaluation of skin ulcers in the right thigh and left buttock. Wound culture is positive for MRSA. Currently on IV vancomycin . ID evaluation appreciated. Surgery evaluation appreciated. Currently has packing in the back. Continue dressing. Hypertension; Cozaar dosage increased. Diabetes; fluctuating blood sugar. Continue Micronase. Depression; psychiatric evaluation appreciated. Continue Prozac and Xanax. Pain management with IV morphine and Percocet. 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 Upon discharge patient will follow up with . 11/11/16 15:22
[2016-11-11] MEDS: Morphine 2 mg/ml ISec IVP PRN ×5 (00:02→22:12)
[2016-11-11] MEDS: Pantoprazole 40 mg EC Tab PO SCH (05:39)
[2016-11-11 06:56] LABS: HEMATOCRIT 33.2 % (42.0-52.0); MEAN CELL VOLUME 94.9 fl (80.0-105.0); MEAN CORPUSCULAR HEMOGLOBIN 30.9 pg (25.0-35.0); MEAN CORPUSCULAR HGB CONC 32.5 g/dl (31.0-37.0); MEAN PLATELET VOLUME 8.8 fl (7.0-11.0); RED CELL DISTRIBUTION WIDTH 13.5 % (11.5-14.5); WHITE BLOOD COUNT 3.8 10^3/ul (4.5-11.0)
[2016-11-11 07:02] LABS: ALB/GLOB RATIO 1.1 (1.1-1.8); ALKALINE PHOSPHATASE 51 U/L (38-126); ALT/SGPT 26 U/L (7-56); AST/SGOT 28 U/L (17-59); BILIRUBIN,TOTAL 0.5 mg/dL (0.2-1.3); BLOOD UREA NITROGEN 8 mg/dL (7-21); CALCIUM 9.1 mg/dL (8.4-10.5); CARBON DIOXIDE 31 mmol/L (21-33); CHLORIDE 102 mmol/L (98-107); GFR AFRICAN-AMERICAN > 60; GLUCOSE,RANDOM 120 mg/dL (70-110); POTASSIUM 5.3 mmol/L (3.6-5.0); SODIUM 142 mmol/L (132-148); TOTAL PROTEIN 7.5 g/dL (5.8-8.3)
--- NOTE | 2016-11-11 07:55 | CP.PCM.PN ---
Subjective - Date & Time of Evaluation Date of Evaluation: 11/11/16 Time of Evaluation: 07:50 - Subjective Subjective: General Surgery Progress note for Dr. Lizama PT S&E at bedside. Dressing changes done by wound care nurse. Patient states no fever, chills. Admits to pain of his thigh and gluteal region. Patient is ambulating and tolerating diet. Objective - Vital Signs/Intake and Output Vital Signs (last 24 hours): Temp Pulse Resp BP Pulse Ox 99.3 F 83 20 163/102 H 98 11/10/16 16:48 11/10/16 16:48 11/10/16 16:48 11/10/16 16:48 11/10/16 16:48 Intake and Output: 11/11/16 11/11/16 06:59 18:59 Intake Total 540 Balance 540 - Medications Medications: Current Medications Acetaminophen (Tylenol 325mg Tab) 650 mg PO Q6H PRN PRN Reason: Pain or Fever Last Admin: 11/09/16 20:02 Dose: 650 mg Alprazolam (Xanax) 0.5 mg PO QID PRN; Protocol PRN Reason: Anxiety Stop: 11/14/16 18:01 Last Admin: 11/11/16 05:38 Dose: 0.5 mg Enoxaparin Sodium (Lovenox) 40 mg SC DAILY [facility] PRN Reason: Protocol Last Admin: 11/10/16 09:45 Dose: 40 mg Fluoxetine HCl (Prozac) 30 mg PO DAILY [facility] Last Admin: 11/10/16 09:03 Dose: 30 mg Glyburide (Micronase) 2.5 mg PO DAILY [facility] Last Admin: 11/10/16 09:01 Dose: 2.5 mg Vancomycin HCl (Vancomycin 1gm) 1 gm in 250 mls @ 167 mls/hr IVPB Q12H [facility] PRN Reason: Protocol Stop: 11/16/16 21:16 Last Admin: 11/10/16 20:28 Dose: 167 mls/hr Insulin Human Regular (Humulin R Low) 0 units SC ACHS [facility] PRN Reason: Protocol Last Admin: 11/10/16 22:05 Dose: Not Given Losartan Potassium (Cozaar) 100 mg PO DAILY [facility] Last Admin: 11/10/16 09:03 Dose: 100 mg Morphine Sulfate (Morphine) 2 mg IVP Q6H PRN PRN Reason: Pain, moderate (4-7) Last Admin: 11/11/16 05:37 Dose: 2 mg Pantoprazole Sodium (Protonix Ec Tab) 40 mg PO 0600 [facility] Last Admin: 11/11/16 05:39 Dose: 40 mg - Labs Labs: 11/11/16 06:30 11/11/16 06:30 - Constitutional Appears: Non-toxic - Head Exam Head Exam: NORMAL INSPECTION - Eye Exam Eye Exam: EOMI, Normal appearance - ENT Exam ENT Exam: Mucous Membranes Moist - Respiratory Exam Respiratory Exam: Clear to Ausculation Bilateral. absent: Accessory Muscle Use , Respiratory Distress - GI/Abdominal Exam GI & Abdominal Exam: Soft, Normal Bowel Sounds. absent: Tenderness - Extremities Exam Extremities Exam: Full ROM, Normal Inspection. absent: Calf Tenderness, Pedal Edema - Neurological Exam Neurological Exam: Alert, Awake, Oriented x3 - Psychiatric Exam Psychiatric exam: Normal Affect, Normal Mood - Skin Skin Exam: Dry, Pallor, Warm Additional comments: dressing sites c/d/i with dressing Assessment and Plan - Assessment and Plan (Free Text) Assessment: 36M w/Right anterior thigh ulcerated wound & Left superior gluteal cleft wound Plan: Wound care as per nursing- Optifoam only to wounds, keep in place x 3-4 days c/w Abx c/w pain control No surgical intervention at this time OOBTC encourage Ambulation c/w current medical management as per primary team d/w Dr. Dl Andrade, DO PGY1
[2016-11-11] MEDS: Insulin Reg-LOW-Coverage SC SCH ×4 (08:25→22:00)
[2016-11-11] MEDS: Vancomycin 1gm in NS 250ml 1 GM/250 ML BAG IVPB SCH ×2 (09:31→20:59)
[2016-11-11] MEDS: Enoxaparin 40 mg Syringe SC SCH (09:31)
--- NOTE | 2016-11-11 13:33 | CP.PCM.PN ---
Subjective - Date & Time of Evaluation Date of Evaluation: 11/11/16 Time of Evaluation: 08:50 - Subjective Subjective: A little less pain in the gluteal and thigh areas. No fevers overnight. Objective - Vital Signs/Intake and Output Vital Signs (last 24 hours): Temp Pulse Resp BP Pulse Ox 98.4 F 75 18 100/90 99 11/11/16 08:15 11/11/16 08:15 11/11/16 08:15 11/11/16 08:15 11/11/16 08:15 Intake and Output: 11/11/16 11/11/16 06:59 18:59 Intake Total 540 Balance 540 - Medications Medications: Current Medications Acetaminophen (Tylenol 325mg Tab) 650 mg PO Q6H PRN PRN Reason: Pain or Fever Last Admin: 11/09/16 20:02 Dose: 650 mg Alprazolam (Xanax) 0.5 mg PO QID PRN; Protocol PRN Reason: Anxiety Stop: 11/14/16 18:01 Last Admin: 11/11/16 05:38 Dose: 0.5 mg Enoxaparin Sodium (Lovenox) 40 mg SC DAILY [facility] PRN Reason: Protocol Last Admin: 11/10/16 09:45 Dose: 40 mg Fluoxetine HCl (Prozac) 30 mg PO DAILY [facility] Last Admin: 11/10/16 09:03 Dose: 30 mg Glyburide (Micronase) 2.5 mg PO DAILY [facility] Last Admin: 11/10/16 09:01 Dose: 2.5 mg Vancomycin HCl (Vancomycin 1gm) 1 gm in 250 mls @ 167 mls/hr IVPB Q12H [facility] PRN Reason: Protocol Stop: 11/16/16 21:16 Last Admin: 11/10/16 20:28 Dose: 167 mls/hr Insulin Human Regular (Humulin R Low) 0 units SC ACHS [facility] PRN Reason: Protocol Last Admin: 11/11/16 08:25 Dose: Not Given Losartan Potassium (Cozaar) 100 mg PO DAILY [facility] Last Admin: 11/10/16 09:03 Dose: 100 mg Morphine Sulfate (Morphine) 2 mg IVP Q6H PRN PRN Reason: Pain, moderate (4-7) Last Admin: 11/11/16 05:37 Dose: 2 mg Pantoprazole Sodium (Protonix Ec Tab) 40 mg PO 0600 [facility] Last Admin: 11/11/16 05:39 Dose: 40 mg - Labs Labs: 11/11/16 06:30 11/11/16 06:30 - Constitutional Appears: Non-toxic, No Acute Distress - Head Exam Head Exam: NORMAL INSPECTION - Respiratory Exam Respiratory Exam: Decreased Breath Sounds - Cardiovascular Exam Cardiovascular Exam: +S1, +S2 - GI/Abdominal Exam GI & Abdominal Exam: Soft. absent: Tenderness Assessment and Plan - Assessment and Plan (Free Text) Plan: Assessment Right thigh, left wrist and left gluteal area skin and soft tissue infection, slowly improving; growing MRSA DM HTN anxiety disorder history of depression history of skin abscesses with MRSA Plan continue Vancomycin day 4; Discussed with Dr. Bray and dr. Sanchez and Dr. Weathers - would recommend Bactroban to the nares and on discharge, chlorhexidine soap; can be switched to PO doxycycline when ready for discharge; should target 7-10 days of antibiotics and with outpatient follow up at a medical clinic (preferably the patient's PMD)
[2016-11-11] MEDS ORDERED: CHLORHEXIDINE 4% TOP PRN (14:32)
--- NOTE | 2016-11-11 16:17 | CP.PCM.PN ---
<Mary García - Last Filed: 11/11/16 16:18> Subjective - Date & Time of Evaluation Date of Evaluation: 11/11/16 Time of Evaluation: 16:14 - Subjective Subjective: Pt seen and evaluated at bedside, no acute events overnight. Pt reports mild improvement of pain to the R thigh, and no pain to the L gluteal region or wrist. He has continued to receive IV abx, with no complaints of rash or dyspnea. Pt additionally reports that he became hypoglycemic last night, FSBS= 69 at the time; he states that he now feels better. He denies fever, chills, headaches, chest pain, or abdominal pain. Pt states that he still feels anxious every day. Pt has been followed by surgical team, who removed the packing and redressed wounds. Objective - Vital Signs/Intake and Output Vital Signs (last 24 hours): Temp Pulse Resp BP Pulse Ox 98.4 F 75 18 100/90 99 11/11/16 08:15 11/11/16 08:15 11/11/16 08:15 11/11/16 08:15 11/11/16 08:15 Intake and Output: 11/11/16 11/11/16 06:59 18:59 Intake Total 540 840 Balance 540 840 - Medications Medications: Current Medications Acetaminophen (Tylenol 325mg Tab) 650 mg PO Q6H PRN PRN Reason: Pain or Fever Last Admin: 11/11/16 10:10 Dose: 650 mg Alprazolam (Xanax) 0.5 mg PO QID PRN; Protocol PRN Reason: Anxiety Stop: 11/14/16 18:01 Last Admin: 11/11/16 15:05 Dose: 0.5 mg Enoxaparin Sodium (Lovenox) 40 mg SC DAILY [facility] PRN Reason: Protocol Last Admin: 11/11/16 09:31 Dose: 40 mg Fluoxetine HCl (Prozac) 30 mg PO DAILY [facility] Last Admin: 11/11/16 09:32 Dose: 30 mg Glyburide (Micronase) 2.5 mg PO DAILY [facility] Last Admin: 11/11/16 09:32 Dose: 2.5 mg Vancomycin HCl (Vancomycin 1gm) 1 gm in 250 mls @ 167 mls/hr IVPB Q12H [facility] PRN Reason: Protocol Stop: 11/16/16 21:16 Last Admin: 11/11/16 09:31 Dose: 167 mls/hr Insulin Human Regular (Humulin R Low) 0 units SC ACHS [facility] PRN Reason: Protocol Last Admin: 11/11/16 15:15 Dose: Not Given Losartan Potassium (Cozaar) 100 mg PO DAILY [facility] Last Admin: 11/11/16 09:31 Dose: 100 mg Morphine Sulfate (Morphine) 2 mg IVP Q6H PRN PRN Reason: Pain, moderate (4-7) Last Admin: 11/11/16 12:17 Dose: 2 mg Mupirocin (Bactroban Ointment) 1 gm NS BID [facility] Stop: 11/16/16 10:01 Pantoprazole Sodium (Protonix Ec Tab) 40 mg PO 0600 [facility] Last Admin: 11/11/16 05:39 Dose: 40 mg - Labs Labs: 11/11/16 06:30 11/11/16 06:30 - Constitutional Appears: Well, Non-toxic, No Acute Distress - Head Exam Head Exam: ATRAUMATIC, NORMOCEPHALIC - Eye Exam Eye Exam: Normal appearance - Respiratory Exam Respiratory Exam: Clear to Ausculation Bilateral. absent: Rales, Rhonchi, Wheezes - Cardiovascular Exam Cardiovascular Exam: +S1, +S2 - GI/Abdominal Exam GI & Abdominal Exam: Soft. absent: Tenderness - Extremities Exam Extremities Exam: absent: Pedal Edema - Neurological Exam Neurological Exam: Alert, Awake, Oriented x3 - Psychiatric Exam Psychiatric exam: Anxious, Depressed - Skin Additional comments: Wounds to the L wrist, R thigh, and L buttocks with dressings in place which are clean and dry. Assessment and Plan - Assessment and Plan (Free Text) Assessment: 36 yo M with significant PMH for DM, HTN, anxiety, depression, and agoraphobia, admitted for evaluation and treatment of multiple abscesses. Plan: 1. Abscesses to R thigh, L buttock, L wrist - Wound culture (+) for MRSA - WBC = 3.8 - Pt remains afebrile - Continue Vancomycin - Wounds dressed by surgical team, packing removed - Seen by ID, recommend continue IV Vancomycin, apply Bactroban to the nares. ID also recommends chlorhexidine soap and Rx for PO doxycycline on discharge. 2. Anxiety - Continue Xanax 0.5mg QID & Prozac 30 mg QD - Reconsulted Psyche. 3. H/O hypertension - Continue Losartan 100 4. H/O diabetes mellitis - Monitor FSBS (currently 140) - Continue glyburide & insulin silding scale 5. Continue GI & DVT PPX Patient seen, examined and reviewed with Attending. Mary García PGY-1 <Wade Weathers - Last Filed: 11/12/16 13:46> Objective - Vital Signs/Intake and Output Vital Signs (last 24 hours): Temp Pulse Resp BP Pulse Ox 98.2 F 94 H 20 148/98 H 98 11/12/16 07:57 11/12/16 10:06 11/12/16 07:57 11/12/16 10:06 11/12/16 07:57 Intake and Output: 11/12/16 11/12/16 06:59 18:59 Intake Total 0 Balance 0 - Medications Medications: Current Medications Acetaminophen (Tylenol 325mg Tab) 650 mg PO Q6H PRN PRN Reason: Pain or Fever Last Admin: 11/11/16 10:10 Dose: 650 mg Clonazepam (Klonopin) 1 mg PO BID [facility] PRN Reason: Protocol Last Admin: 11/12/16 10:05 Dose: 1 mg Doxycycline Hyclate (Doryx) 100 mg PO Q12 [facility] PRN Reason: Protocol Enoxaparin Sodium (Lovenox) 40 mg SC DAILY [facility] PRN Reason: Protocol Last Admin: 11/12/16 10:06 Dose: 40 mg Fluoxetine HCl (Prozac) 30 mg PO DAILY [facility] Last Admin: 11/12/16 10:07 Dose: 30 mg Glyburide (Micronase) 2.5 mg PO DAILY [facility] Last Admin: 11/12/16 11:15 Dose: Not Given Insulin Human Regular (Humulin R Low) 0 units SC ACHS [facility] PRN Reason: Protocol Last Admin: 11/12/16 12:32 Dose: 1 units Losartan Potassium (Cozaar) 100 mg PO DAILY [facility] Last Admin: 11/12/16 10:06 Dose: 100 mg Mupirocin (Bactroban Ointment) 1 gm NS BID [facility] Stop: 11/16/16 10:01 Last Admin: 11/12/16 10:15 Dose: 1 applic Oxycodone/Acetaminophen (Percocet 5/325 Mg Tab) 1 tab PO Q6H PRN PRN Reason: Pain, moderate (4-7) Stop: 11/15/16 12:21 Last Admin: 11/12/16 12:33 Dose: 1 tab Pantoprazole Sodium (Protonix Ec Tab) 40 mg PO 0600 [facility] Last Admin: 11/12/16 05:57 Dose: 40 mg Zaleplon (Sonata) 5 mg PO HS [facility] - Labs Labs: 11/12/16 06:13 11/12/16 06:13 Attending/Attestation - Attestation I have personally seen and examined this patient.: Yes I have fully participated in the care of the patient.: Yes I have reviewed all pertinent clinical information, including history, physical exam and plan: Yes Notes (Text): 11/12/16 13:42 Attending note; Patient seen and examined with resident. Patient is a 36 year old male with history of DM-2, HTN, anxiety, depression, agoraphobia who was admitted for evaluation of skin ulcers in the right thigh and left buttock. Wound culture is positive for MRSA. Treated with IV vancomycin . ID evaluation appreciated. switched to po doxycyine. Surgery evaluation appreciated. continue optifoam dressing once in 3 days. Hypertension; continue Cozaar dosage increased. Diabetes; Continue Micronase. Depression; psychiatric evaluation appreciated. Continue Prozac and Xanax. Possible transfer to psychiatric floor tomorrow. Case discussed with dr. Perez in detail. Pain management with Percocet. 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 Upon discharge patient will follow up with .
[2016-11-11 17:04] VITALS: RESP 20
--- NOTE | 2016-11-11 19:38 | PN ---
SUBJECTIVE: The patient is a 36-year-old male with history of depression and anxiety, multiple medical issues. The patient was admitted on the medical side for wounds and was found to have MRSA. Psycho consult was called for evaluation of depressive symptoms as well as anxiety symptoms. Dr. Causey notes reviewed. The patient was offered psychiatric admission, but declined that offer. Medical team asked to reevaluate because the patient verbalized that he is willing to go to the psychiatric inpatient unit. The patient was seen and examined. The patient presented to be depressed right now. The patient is open to the option to go the psych inpatient unit. This typewriter operator automatic is not sure if the patient is cleared from the medical standpoint and should he be on contact isolation need to speak to the medical team as well as with infectious disease team. PHYSICAL EXAMINATION: VITAL SIGNS: Pulse rate is 50, blood pressure 151/93, respiration 20, oxygen saturation 97%. MEDICATIONS: Reviewed. The patient is on Tylenol, Xanax 0.5 mg 4 times a day, Lovenox, Prozac 30 mg daily, glyburide, insulin, Cozaar, morphine; also mupirocin, vancomycin as well. LABORATORY DATA: Reviewed. WBC cells low. Potassium 5.3. Serology reviewed, nonreactive. MENTAL STATUS EXAMINATION: The patient presented to be depressed and hopeless. The patient has intermittent eye contact. Speech was low volume, underproductive. Thought process was coherent and goal directed. Thought content, the patient denied visual, auditory or tactile hallucinations. Denied paranoid ideation. The patient denied thoughts of harming himself or others, but reported to feel hopeless and helpless. The patient's insight and judgment improving. Impulses are well controlled. IMPRESSION: Major depressive disorder, rule out panic disorder with agoraphobia and rule out generalized anxiety disorder, rule out mood disorder, anxiety disorder due to change in medical condition as per medical team, the patient has lot of social issues and he is homeless. PLAN: Continue current management. Continue current medication. We will follow up and advise accordingly. Most likely, the patient needs to be admitted to the psychiatric inpatient unit for further evaluation and stabilization. Should you have any questions, give me a call back. Most likely, the patient will be transferred to the unit tomorrow if he will be cleared by infectious disease and medical team. Thank you very much for letting me to participate in care of your patient. Consuelo Perez MD
[2016-11-12] MEDS: Morphine 2 mg/ml ISec IVP PRN ×2 (03:40→08:50)
[2016-11-12] MEDS: Pantoprazole 40 mg EC Tab PO SCH (05:57)
[2016-11-12 06:37] LABS: MEAN CELL VOLUME 95.5 fl (80.0-105.0); MEAN CORPUSCULAR HEMOGLOBIN 30.7 pg (25.0-35.0); MEAN CORPUSCULAR HGB CONC 32.2 g/dl (31.0-37.0); RED CELL DISTRIBUTION WIDTH 13.8 % (11.5-14.5); WHITE BLOOD COUNT 4.6 10^3/ul (4.5-11.0)
[2016-11-12 06:46] LABS: ALB/GLOB RATIO 1.1 (1.1-1.8); ALKALINE PHOSPHATASE 50 U/L (38-126); ALT/SGPT 28 U/L (7-56); AST/SGOT 32 U/L (17-59); BILIRUBIN,TOTAL 0.5 mg/dL (0.2-1.3); BLOOD UREA NITROGEN 9 mg/dL (7-21); CALCIUM 9.1 mg/dL (8.4-10.5); CARBON DIOXIDE 32 mmol/L (21-33); CHLORIDE 102 mmol/L (98-107); GFR AFRICAN-AMERICAN > 60; GLUCOSE,RANDOM 127 mg/dL (70-110); POTASSIUM 5.1 mmol/L (3.6-5.0); SODIUM 141 mmol/L (132-148); TOTAL PROTEIN 7.2 g/dL (5.8-8.3)
[2016-11-12 07:57] VITALS: TEMP 98.2; O2SAT 98
[2016-11-12] MEDS: Insulin Reg-LOW-Coverage SC SCH ×2 (08:29→12:32)
[2016-11-12] MEDS: Vancomycin 1gm in NS 250ml 1 GM/250 ML BAG IVPB SCH (10:05)
[2016-11-12] MEDS: Enoxaparin 40 mg Syringe SC SCH (10:06)
[2016-11-12 10:15] VITALS: BP 148/98; PULSE 94
[2016-11-12] MEDS ORDERED: Oxycodone/Acetaminophen 5/325 mg Tab PO PRN (12:20)
--- NOTE | 2016-11-12 12:22 | PN ---
DATE: 11/12/2016 SUBJECTIVE: The patient seen earlier this morning in room #366, bed #3. The patient has no fevers and no chills. No nausea. He is complaining of wound site infection. PHYSICAL EXAMINATION: VITAL SIGNS: On exam, temperature is 98, blood pressure is 140/90, respiratory rate of 18. HEENT: Unremarkable. NECK: Supple. LUNGS: Have decreased breath sounds. HEART: Normal S1 and S2. ABDOMEN: Soft and nontender. Examination of wound reveals chronic changes and he has a necrotic area, which has chronic changes in the buttocks also. LABORATORY EXAMINATION: Revealed a white count of 4.6, hemoglobin of 10, platelets of 252. Chemistry reveals a BUN of 9, creatinine of 0.7. Serology is noted and microbiology reveals the abscess to have MRSA. The blood cultures have no growth. The ISH for MRSA is noted, vancomycin 0.5 with a sensitivity to clindamycin; however, it is erythromycin resistant. They do not do a D test here in [facility]. Review of orders reveals the patient to be on vancomycin. ASSESSMENT AND PLAN: This is a 36-year-old male with history of diabetes, hypertension, history of anxiety and depression, now presenting with methicillin-resistant Staphylococcus aureus right thigh and right thigh soft tissue infection which appears to have chronic appearance at this point and also with left buttocks lesion, large ulcer on the buttocks at this point, on vancomycin day #5. I made switch to p.o. doxycycline when the patient is ready for discharge, would complete a total of 7 days to 10 days of antibiotics. Today is day #5, may switch to p.o. doxycycline upon discharge. Maximo Dejesus MD
--- NOTE | 2016-11-12 20:42 | PN ---
SUBJECTIVE: The patient was seen today. The patient presented to be depressed and anxious. The patient said that he feels hopeless in regards of his living situation as well as in regards of his symptoms. The patient reported that he was not able to full asleep and to stay asleep. The patient was offered sonata. The patient is willing to take that medication. The patient's medications reviewed. Labs reviewed. Chemistry reviewed. Discussed with the medical team, Dr. Weathers. At present moment, the patient had MRSA positive wounds but was cleared by Infectious Disease team as well as the patient could be on p.o. antibiotics. PHYSICAL EXAMINATION: VITAL SIGNS: Stable. Temperature 98.3, pulse is 94, blood pressure 148/98, respiration 20 and oxygen saturation is 98%. MEDICATIONS: Reviewed. Considering the fact that the patient was on Xanax which is short acting, benzodiazepine 4 times a day. This software writer educated the patient about Klonopin. The patient is willing to be switch. The patient will be on doxycycline, Lovenox, Prozac was increased to 30 mg over weekend. The patient is on glyburide, insulin, Cozaar, Bactroban twice a day on the nares area, Percocet. Also, the patient is on Protonix and sonata will be given as needed for insomnia. LABORATORY DATA: Reviewed. Reports reviewed. MENTAL STATUS EXAMINATION: The patient presented to be alert and oriented, depressed and anxious. Intermittent eye contact. Speech was underproductive, low volume. Thought process seems to be goal directed and coherent. Thought content; the patient reported to feel hopeless and helpless, no psychotic symptoms, no thoughts of harming himself or others. Insight and judgment are improving. Impulses are well controlled. IMPRESSION: Major depressive disorder, generalized anxiety disorder, panic disorder with agoraphobia, multiple medical issues, rule out mood disorder due to general medical condition. The patient lost his house and rule out of adjustment disorder with depressed and anxious mood. The patient has multiple medical issues. Please see medical team notes for more detailed information. PLAN: The patient is willing to sign to the psychiatric inpatient unit. Meds will be adjusted. Family involved. The patient will be seen by medical team, Infectious Disease, and most likely surgical team because the patient had MRSA in his wounds. The patient is off contact isolation. Should you have any questions give me a call back. The patient will be transferred to the psychiatric unit today. Consuelo Perez MD
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
== END 2016-11-12 15:03 | DRG 277 ==
LOC: ED 11:16 → ERH 13:34 → 3RNO 14:51
PROVIDERS: ADMIT Internal Medicine; ATTEND Internal Medicine
DX: L02.415 Cutaneous abscess of right lower limb (principal); L02.414 Cutaneous abscess of left upper limb; E11.649 Type 2 diabetes mellitus with hypoglycemia without coma; L03.90 Cellulitis, unspecified; L97.129 Non-pressure chronic ulcer of left thigh with unspecified severity; L97.119 Non-pressure chronic ulcer of right thigh with unspecified severity; F06.30 Mood disorder due to known physiological condition, unspecified; I10 Essential (primary) hypertension; F41.1 Generalized anxiety disorder; F43.23 Adjustment disorder with mixed anxiety and depressed mood; F32.1 Major depressive disorder, single episode, moderate; F40.01 Agoraphobia with panic disorder; J45.909 Unspecified asthma, uncomplicated; S81.801A Unspecified open wound, right lower leg, initial encounter; Z59.0 Homelessness; Z79.899 Other long term (current) drug therapy; Z82.3 Family history of stroke; Z82.49 Family history of ischemic heart disease and other diseases of the circulatory system; Z83.3 Family history of diabetes mellitus; Z86.14 Personal history of Methicillin resistant Staphylococcus aureus infection; Z87.891 Personal history of nicotine dependence; Z87.898 Personal history of other specified conditions

== ENCOUNTER 2016-11-12 15:17 | Inpatient (IN) | payer MEDICAID ==
[2016-11-12 16:44] VITALS: BMI 27.9
[2016-11-12] MEDS ORDERED: Alum-Mag Hydrox-Simethicone Susp (30 mL) PO PRN (17:10)
[2016-11-12] MEDS ORDERED: Magnesium Hydroxide Susp 30 ml UD PO PRN (17:10)
[2016-11-12] MEDS: Oxycodone/Acetaminophen 5/325 mg Tab PO PRN (18:37)
--- NOTE | 2016-11-12 19:51 | PCM.BM ---
<Taylor Short - Last Filed: 11/12/16 19:48> Treatment Plan Problems - Problems identified on initial assessmt ANXIETY Date Initiated: 11/12/16 Time Initiated: 19:00 Assessment reference: NA Status: Active Priority: 1 DEPRESSION Date Initiated: 11/12/16 Time Initiated: 19:00 Assessment reference: NA Status: Active Priority: 2 Treatment assets and liabiliti Patient Assests: cooperative, ADL independent, good support system, cognitively intact Patient Liabilities: physical pain, financial problems - Milieu Protocol Maintain good personal hygiene: daily Encourage regular showers, daily Remind patient to perform daily oral care, daily Assist patient to perform ADL's Maintain personal safety: every shift Educate patient to report safety concerns to staff, every shift Monitor environment for contraband/sharps Medication safety: Monitor for expected outcome, potential side effects: every shift, Assess barriers to learning: every shift, Assess readiness for medication education: every shift Discharge/Continuing Care - Education Needs Education Needs: Patient Medication, Patient Diagnosis/Disease Process, Patient Coping Skills, Patient Community resources, Patient Activities of Daily Living, Patient Pain, Patient Health Practices/Safety, Patient Personal Hygiene/Grooming , Patient Aftercare Safety Plan - Discharge Discharge Criteria: Tolerates medication w/o severe side effects, Free of Suicidal thoughts, Free of agitation, Normal sleep pattern <Consuelo Perez - Last Filed: 11/13/16 08:53> - Diagnosis (1) MDD (major depressive disorder) Status: Acute Interventions: 11/13/16 08:52 Psychoeducation Psychopharmacology/adjustment of medications as needed/ monitoring possible side effects Evaluate pt on daily basis Compliance with medications and follow up appointments Suicide and homicide risk assessment and prevention Relapse prevention Reduction of symptoms Improve functional status Family involvement As outpatient: cognitive behavioral therapy (2) HORACIO (generalized anxiety disorder) Status: Acute Interventions: 11/13/16 08:52 Psychoeducation Psychopharmacology/adjustment of medications as needed/ monitoring possible side effects Evaluate pt on daily basis Compliance with medications and follow up appointments Suicide and homicide risk assessment and prevention, coping strategies, safety plan Reduction of symptoms Relaxation techniques and breathing exercises Improve functional status Family involvement As outpatient: cognitive behavioral therapy (3) Panic disorder with agoraphobia Status: Acute Interventions: 11/13/16 08:53 Psychoeducation Psychopharmacology/adjustment of medications as needed/ monitoring possible side effects Evaluate pt on daily basis Compliance with medications and follow up appointments Suicide and homicide risk assessment and prevention, coping strategies, safety plan Reduction of symptoms Relaxation techniques and breathing exercises Improve functional status Family involvement As outpatient: cognitive behavioral therapy (4) Mood disorder due to a general medical condition Status: Acute Interventions: 11/13/16 08:53 Pt will be seen by medical team as needed Medications will be confirmed and resumed Additional consultation by specialists as needed Lab work as needed (CBC, CMP, TSH, free T4, UA, Urine test for females as needed) CXR as needed EKG Physical therapy valuation as needed <Roopa Whitfield - Last Filed: 11/13/16 16:08> Family Contact Family contact: Patient agrees to contact Family contacted how many times per week?: 2 <Linda Smith - Last Filed: 11/15/16 13:59>
[2016-11-12] MEDS ORDERED: Insulin Reg-LOW-Coverage SC SCH (22:00)
[2016-11-12] MEDS: Insulin Reg-LOW-Coverage SC SCH (22:03)
[2016-11-13] MEDS: Oxycodone/Acetaminophen 5/325 mg Tab PO PRN ×2 (03:30→10:41)
[2016-11-13] MEDS: Pantoprazole 40 mg EC Tab PO SCH (07:39)
[2016-11-13] MEDS: Insulin Reg-LOW-Coverage SC SCH ×4 (07:40→21:59)
[2016-11-13 08:17] LABS: CHOLESTEROL 166 mg/dL (130-200)
[2016-11-13 08:31] LABS: FREE T4 1.27 ng/dL (0.78-2.19)
[2016-11-13 08:45] LABS: THYROID STIMULATING HORMONE 1.6 mIU/mL (0.46-4.68)
[2016-11-13 10:46] LABS: HEMATOCRIT 34.5 % (42.0-52.0); MEAN CELL VOLUME 96.4 fl (80.0-105.0); MEAN CORPUSCULAR HEMOGLOBIN 31.3 pg (25.0-35.0); MEAN CORPUSCULAR HGB CONC 32.5 g/dl (31.0-37.0); MEAN PLATELET VOLUME 9.4 fl (7.0-11.0); RED CELL DISTRIBUTION WIDTH 14.1 % (11.5-14.5); WHITE BLOOD COUNT 5.4 10^3/ul (4.5-11.0)
[2016-11-13 10:54] LABS: ALB/GLOB RATIO 1.1 (1.1-1.8); ALKALINE PHOSPHATASE 55 U/L (38-126); ALT/SGPT 33 U/L (7-56); AST/SGOT 29 U/L (17-59); BILIRUBIN,TOTAL 0.8 mg/dL (0.2-1.3); BLOOD UREA NITROGEN 13 mg/dL (7-21); CALCIUM 9.3 mg/dL (8.4-10.5); CARBON DIOXIDE 28 mmol/L (21-33); CHLORIDE 101 mmol/L (98-107); GFR AFRICAN-AMERICAN > 60; GLUCOSE,RANDOM 117 mg/dL (70-110); POTASSIUM 4.8 mmol/L (3.6-5.0); SODIUM 141 mmol/L (132-148); TOTAL PROTEIN 7.8 g/dL (5.8-8.3)
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
[2016-11-14] MEDS: Oxycodone/Acetaminophen 5/325 mg Tab PO PRN ×3 (03:37→21:41)
[2016-11-14] MEDS: Pantoprazole 40 mg EC Tab PO SCH (08:15)
[2016-11-14] MEDS: Insulin Reg-LOW-Coverage SC SCH ×4 (08:18→22:13)
--- NOTE | 2016-11-14 16:35 | PCM.PYCHPN ---
Psychiatric Progress Note - Psychiatric Progress Note Patient seen today, length of contact: 30 minutes Patient Chief Complaint: "I feel very hopeless,I am in a lot of pain" Problems Identified/Issues Discussed: Suicide/ homicide prevention, past psychiatric h/o, current psychiatric symptoms , medical problems, risk/benefits and alternatives of medications, medications compliance, coping strategies, substance abuse h/o, relapse prevention, importance of follow up with psychiatrist and therapist, discharge plan. Medical Problems: Patient has multiple medical issues please see medical team notes for more detailed information. Patient had a thigh as well as buttock wound MRSA positive. currently patient is not contagious, on po antibiotics. medical team as well as ADD team as well as surgical team is following patient. Diagnostic Results: 11/13/16 07:00 11/13/16 08:01 Lab Results 11/14/16 11:03: POC Glucose (mg/dL) 154 H 11/14/16 06:15: POC Glucose (mg/dL) 116 H 11/13/16 21:39: POC Glucose (mg/dL) 138 H 11/13/16 16:00: POC Glucose (mg/dL) 112 H 11/13/16 08:01: RPR Nonreactive 11/13/16 08:01: Sodium 141, Potassium 4.8, Chloride 101, Carbon Dioxide 28, Anion Gap 17, BUN 13, Creatinine 0.9, Est GFR ( Amer) > 60, Est GFR (Non- Af Amer) > 60, Random Glucose 117 H, Calcium 9.3, Total Bilirubin 0.8, AST 29, ALT 33, Alkaline Phosphatase 55, Total Protein 7.8, Albumin 4.1, Globulin 3.7, Albumin/Globulin Ratio 1.1, Triglycerides 103, Cholesterol 166, LDL Cholesterol Direct 95, HDL Cholesterol 43 11/13/16 08:01: Free T4 1.27, TSH 3rd Generation 1.60 11/13/16 07:00: WBC 5.4, RBC 3.58, Hgb 11.2 L, Hct 34.5 L, MCV 96.4, MCH 31.3, MCHC 32.5, RDW 14.1, Plt Count 272, MPV 9.4 Vital Signs Temp Pulse Resp BP Pulse Ox 11/14/16 06:00 97.6 F 63 18 162/64 H 100 11/13/16 16:09 78 144/93 H 11/13/16 07:19 98.3 F 81 20 156/106 H DSM 5 Symptoms Update: Shortly patient is 36 year old male, self reported history of major depressive disorder as well as generalized anxiety disorder as well as social anxiety, patient was transferred from the medical side for evaluation of worsening of depressive symptoms, feeling of hopelessness, passive wish to be , inabilities to function, worsening of anxiety, patient does not have psychiatrist in the community, needs medication adjustment. Patient was seen at the dining area, presented to be older than chronological age, patient appears to be depressed, flat affect, underproductive speech, fear ADLs. patient maintains concern is his chronic pain which is "unbearable". Patient said that he feels hopeless about his living situation and about his symptoms. Patient denied thoughts of harming himself or others, patient reported that she has poor sleep, patient said that he feels depressed, had feeling of hopelessness, helplessness, depressive symptoms, anhedonia, patient also reported that he had panic attacks, agoraphobia, patient also said that he was not able to function, not able to sleep, had passive wish to be . patient tolerates medications well, no side effects observed or reported, aims 0 , no EPS. Patient has strong dependent personality traits. As per staff patient is compliant with the medications, noAfebrile issues. Impression: Major depressive disorder Rule out adjustment disorder with depressed and anxious mood Rule out dependent personality disorder Rule out panic disorder with agoraphobia Rule out mood disorder and anxiety disorder due to general medical condition Medication Change: Yes (somewhat increased, Klonopin and increase) Medical Record Reviewed: Yes Consults ordered or reviewed: medical consult appreciated Mental Status Examination - Cognitive Function Orientation: Person, Place, Situation, Time Memory: Intact Attention: Poor Concentration: Poor Association: Loose Fund of Knowledge: Poor - Mood Mood: Depressed, Anxious - Affect Affect: Flat - Speech Speech: Appropriate - Formal Thought Process Formal Thought Process: No Impairment - Suicidal Ideation Suicidal Ideation: No - Homicidal Ideation Homicidal Ideation: No Goal/Treatment Plan - Goal/Treatment Plan Need for Continued Stay: Remain at risks for inpatient hospitalization, Severe depression anxiety, Discharge may exacerbated symptoms, Severe functional impairment Progress Toward Problem(s) and Goals/Treatment Plan: milieu, structure, supportive therapy Prozac 40 mg a day for depression and anxiety Klonopin 1 mg twice a day and 1 mg at the nighttime for anxiety Sonata will be increased to 10 mg at the nighttime for insomnia Medical team evaluation barnworker groom evaluation Family involvement we will monitor patient closely Estimated Date of D/C: 11/19/16 (we'll monitor closely)
[2016-11-15] MEDS: Oxycodone/Acetaminophen 5/325 mg Tab PO PRN ×3 (03:43→14:52)
[2016-11-15] MEDS: Pantoprazole 40 mg EC Tab PO SCH (06:15)
[2016-11-15] MEDS: Insulin Reg-LOW-Coverage SC SCH ×4 (08:00→22:36)
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
[2016-11-16] MEDS: Pantoprazole 40 mg EC Tab PO SCH (07:25)
[2016-11-16] MEDS: Insulin Reg-LOW-Coverage SC SCH ×4 (08:43→23:18)
--- NOTE | 2016-11-16 08:44 | PCM.PYCHPN ---
Psychiatric Progress Note - Psychiatric Progress Note Patient seen today, length of contact: 25 minutes Patient Chief Complaint: "depressed" Problems Identified/Issues Discussed: I reviewed assessment and recent notes. Patient was interviewed at bedside. He is calm, groomed and oriented to month, location and year. Reports that he's still feeling depressed. Feels that pain is affecting his mood and sleep. Affect is constricted. Responses are brief and relevant to questioning. Patient denies having any hallucinations or paranoia. He was not observed to be responding to internal stimuli . He denies any current side effects or new pains. Nursing notes indicate that patient has been quiet and in control. Visible and going to groups. There were no behavioral issues overnight Diagnostic Results: Major depressive disorder Rule out adjustment disorder with depressed and anxious mood Rule out dependent personality disorder Rule out panic disorder with agoraphobia Rule out mood disorder and anxiety disorder due to general medical condition Medication Change: No ( ) Medical Record Reviewed: Yes Mental Status Examination - Cognitive Function Orientation: Person, Place, Situation, Time Memory: Intact Attention: Poor Concentration: Poor Association: Loose Fund of Knowledge: Poor - Mood Mood: Depressed, Anxious - Affect Affect: Flat - Speech Speech: Appropriate - Formal Thought Process Formal Thought Process: No Impairment - Suicidal Ideation Suicidal Ideation: No - Homicidal Ideation Homicidal Ideation: No Goal/Treatment Plan - Goal/Treatment Plan Need for Continued Stay: Remain at risks for inpatient hospitalization, Severe depression anxiety, Discharge may exacerbated symptoms, Severe functional impairment Progress Toward Problem(s) and Goals/Treatment Plan: * c/w current tx and plan * No new weekend labs thus far * Vitals reviewed and noted below: Selected Entries 11/14/16 11/14/16 11/15/16 06:00 16:45 06:50 Temperature 97.6 F 97.7 F Pulse Rate 63 79 75 Respiratory 18 20 Rate Blood Pressure 162/64 H 145/96 H 11/15/16 06:53 Temperature Pulse Rate 75 Respiratory 20 Rate Blood Pressure 143/89 Estimated Date of D/C: 11/19/16 (we'll monitor closely)
[2016-11-16] MEDS: Oxycodone/Acetaminophen 5/325 mg Tab PO PRN ×2 (16:15→22:27)
[2016-11-17] MEDS: Pantoprazole 40 mg EC Tab PO SCH (06:37)
[2016-11-17] MEDS: Insulin Reg-LOW-Coverage SC SCH ×4 (08:22→23:00)
--- NOTE | 2016-11-17 08:50 | PCM.PYCHPN ---
Psychiatric Progress Note - Psychiatric Progress Note Patient seen today, length of contact: 25 minutes Patient Chief Complaint: "depressed" Problems Identified/Issues Discussed: I reviewed recent notes and patient was interviewed at bedside.. He is calm, fairly groomed and oriented to month, location and year. Reports that he's feeling the same, still depressed. Feels that pain is still affecting his mood and sleep despite addition of percocet yesterday. Affect is constricted. Responses are brief and relevant to questioning. Patient denies having any hallucinations or paranoia. He was not observed to be responding to internal stimuli. He denies any current side effects or new pains. Nursing notes indicate that patient has been quiet with low energy on the unit. He has been in control. Visible and going to groups. There were no behavioral issues over the weekend Diagnostic Results: Major depressive disorder Rule out adjustment disorder with depressed and anxious mood Rule out dependent personality disorder Rule out panic disorder with agoraphobia Rule out mood disorder and anxiety disorder due to general medical condition Medication Change: No ( ) Medical Record Reviewed: Yes Mental Status Examination - Cognitive Function Orientation: Person, Place, Situation, Time Memory: Intact Attention: WNL Concentration: Poor Association: Loose Fund of Knowledge: Poor - Mood Mood: Depressed, Anxious - Affect Affect: Flat - Speech Speech: Appropriate - Formal Thought Process Formal Thought Process: No Impairment - Suicidal Ideation Suicidal Ideation: No - Homicidal Ideation Homicidal Ideation: No Goal/Treatment Plan - Goal/Treatment Plan Need for Continued Stay: Remain at risks for inpatient hospitalization, Severe depression anxiety, Discharge may exacerbated symptoms, Severe functional impairment Progress Toward Problem(s) and Goals/Treatment Plan: * c/w current tx and plan * No new weekend labs * Vitals reviewed and noted below: Selected Entries 11/16/16 11/16/16 07:21 16:00 Temperature 98.3 F Pulse Rate 76 84 Respiratory 20 Rate Blood Pressure 165/112 H 124/86 Estimated Date of D/C: 11/19/16 (we'll monitor closely)
[2016-11-17] MEDS: Oxycodone/Acetaminophen 5/325 mg Tab PO PRN ×3 (08:54→21:57)
[2016-11-18] MEDS: Pantoprazole 40 mg EC Tab PO SCH (06:27)
[2016-11-18] MEDS: Insulin Reg-LOW-Coverage SC SCH ×4 (08:05→21:59)
[2016-11-18] MEDS: Oxycodone/Acetaminophen 5/325 mg Tab PO PRN ×3 (09:05→21:56)
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
[2016-11-19] MEDS: Oxycodone/Acetaminophen 5/325 mg Tab PO PRN ×3 (07:01→22:04)
[2016-11-19] MEDS: Pantoprazole 40 mg EC Tab PO SCH (07:03)
[2016-11-19] MEDS: Insulin Reg-LOW-Coverage SC SCH ×3 (08:25→22:45)
--- NOTE | 2016-11-19 15:15 | PCM.PYCHPN ---
Psychiatric Progress Note - Psychiatric Progress Note Patient seen today, length of contact: 30min Patient Chief Complaint: "I am very anxious and I am in pain" Medical Problems: Patient has multiple medical issues please see medical team notes for more detailed information. Patient had a thigh as well as buttock wound MRSA positive. currently patient is not contagious, on po antibiotics. medical team as well as ADD team as well as surgical team is following patient. Diagnostic Results: 11/13/16 07:00 11/13/16 08:01 Lab Results 11/14/16 11:03: POC Glucose (mg/dL) 154 H 11/14/16 06:15: POC Glucose (mg/dL) 116 H 11/13/16 21:39: POC Glucose (mg/dL) 138 H 11/13/16 16:00: POC Glucose (mg/dL) 112 H 11/13/16 08:01: RPR Nonreactive 11/13/16 08:01: Sodium 141, Potassium 4.8, Chloride 101, Carbon Dioxide 28, Anion Gap 17, BUN 13, Creatinine 0.9, Est GFR ( Amer) > 60, Est GFR (Non- Af Amer) > 60, Random Glucose 117 H, Calcium 9.3, Total Bilirubin 0.8, AST 29, ALT 33, Alkaline Phosphatase 55, Total Protein 7.8, Albumin 4.1, Globulin 3.7, Albumin/Globulin Ratio 1.1, Triglycerides 103, Cholesterol 166, LDL Cholesterol Direct 95, HDL Cholesterol 43 11/13/16 08:01: Free T4 1.27, TSH 3rd Generation 1.60 11/13/16 07:00: WBC 5.4, RBC 3.58, Hgb 11.2 L, Hct 34.5 L, MCV 96.4, MCH 31.3, MCHC 32.5, RDW 14.1, Plt Count 272, MPV 9.4 Vital Signs Temp Pulse Resp BP Pulse Ox 11/14/16 06:00 97.6 F 63 18 162/64 H 100 11/13/16 16:09 78 144/93 H 11/13/16 07:19 98.3 F 81 20 156/106 H DSM 5 Symptoms Update: Shortly patient is 36 year old male, self reported history of major depressive disorder as well as generalized anxiety disorder as well as social anxiety, patient was transferred from the medical side for evaluation of worsening of depressive symptoms, feeling of hopelessness, passive wish to be , inabilities to function, worsening of anxiety, patient does not have psychiatrist in the community, needs medication adjustment. Patient was seen at the TV area with SHAHID Griffin. presented to be older than chronological age, patient appears to be depressed, flat affect, underproductive speech, fair ADLs. patient maintains concern is his chronic pain which affect pt's anxiety "I constantly anxious", keep asking to increase klonopin and page Medical team to increase percocent. medical and surgical teams evaluated pt. MSE: Pt was alert, oriented in self, time and place. Pt deemed to be exaggerating all of his symptoms, seems unreliable historian, passive role in tx. Pt looks older his chronological age, good personal hygiene, good ADLs, psychomotor retardation, speech was: low volume, monotonic, under productive , eye contact: intense, mood described: "depressed and anxious, why can't you increase klonopin ?", affect: was flat, thought process: goal directed, thought content: denied SI / HI, denied v/a/t hallucinations, denied paranoid ideation and pt does not appear to be internally preoccupied or responding to internal stimuli, insight : is fair, judgment:fair, impulses are well controlled. patient tolerates medications well, no side effects observed or reported, aims 0 , no EPS. Patient has strong dependent personality traits. As per staff patient is compliant with the medications, no acute issues. slept for 4-5 hours over night. Impression: Major depressive disorder Rule out adjustment disorder with depressed and anxious mood Rule out dependent personality disorder Rule out panic disorder with agoraphobia Rule out mood disorder and anxiety disorder due to general medical condition Plan: Milieu/structure/supportive therapy Medical consult appreciated, see medical team note for more detailed info SW consultation for discharge plan and social issues Med management Prozac 50 mg a day for depression and anxiety Klonopin 1 mg twice a day and 2 mg at the nighttime for anxiety Sonata 10 mg at the nighttime for insomnia Family involvement Follow up on labs Will monitor closely Pt was educated about risk/benefits and alternatives of medications, coping strategies (safety plan, suicide prevention), relapse prevention, importance of follow up with psychiatrist and therapist, stay away from drugs/alcohol/smoking Medication Change: Yes (klonopin increased) Medical Record Reviewed: Yes Consults ordered or reviewed: medical consult and f/u appreciated d/w surgical consult and f/u appreciated Goal/Treatment Plan - Goal/Treatment Plan Need for Continued Stay: Severe depression anxiety, Discharge may exacerbated symptoms, Severe functional impairment Estimated Date of D/C: 11/19/16 (we'll monitor closely)
[2016-11-20] MEDS: Oxycodone/Acetaminophen 5/325 mg Tab PO PRN ×3 (05:19→21:31)
[2016-11-20 07:01] VITALS: O2SAT 97
[2016-11-20] MEDS: Insulin Reg-LOW-Coverage SC SCH ×4 (08:29→22:02)
[2016-11-20] MEDS: Pantoprazole 40 mg EC Tab PO SCH (08:35)
--- NOTE | 2016-11-20 11:55 | PCM.BM ---
Treatment Plan Problems - Problems identified on initial assessmt ANXIETY Date Initiated: 11/12/16 Time Initiated: 19:00 Assessment reference: NA Status: Active Priority: 1 DEPRESSION Date Initiated: 11/12/16 Time Initiated: 19:00 Assessment reference: NA Status: Active Priority: 2 Treatment assets and liabiliti Patient Assests: cooperative, ADL independent, good support system, cognitively intact Patient Liabilities: physical pain, financial problems - Milieu Protocol Maintain good personal hygiene: daily Encourage regular showers, daily Remind patient to perform daily oral care, daily Assist patient to perform ADL's Maintain personal safety: every shift Educate patient to report safety concerns to staff, every shift Monitor environment for contraband/sharps Medication safety: Monitor for expected outcome, potential side effects: every shift, Assess barriers to learning: every shift, Assess readiness for medication education: every shift Milieu Narrative: milieu, structure, supportive therapy Prozac 50 mg a day for depression and anxiety Klonopin 1 mg twice a day and 1 mg at the nighttime for anxiety Sonata 10 mg at the nighttime for insomnia Medical team evaluation, will f/u on pt 11/19/16 surgical f/u private household worker evaluation Family involvement we will monitor patient closely Family Contact Family contact: Patient agrees to contact Family contacted how many times per week?: 2 Discharge/Continuing Care - Education Needs Education Needs: Patient Medication, Patient Diagnosis/Disease Process, Patient Coping Skills, Patient Community resources, Patient Activities of Daily Living, Patient Pain, Patient Health Practices/Safety, Patient Personal Hygiene/Grooming , Patient Aftercare Safety Plan - Discharge Discharge Criteria: Tolerates medication w/o severe side effects, Free of Suicidal thoughts, Free of agitation, Normal sleep pattern - Treatment Team Participation Patient/Family/SO Statement: milieu, structure, supportive therapy Prozac 50 mg a day for depression and anxiety Klonopin 1 mg twice a day and 1 mg at the nighttime for anxiety Sonata 10 mg at the nighttime for insomnia Medical team evaluation, will f/u on pt 11/19/16 surgical f/u private household worker evaluation Family involvement we will monitor patient closely Treatment Plan Review Patient participation: Yes - Problem ANXIETY Date Initiated: 11/20/16 Time Initiated: 11:50 Progress toward outcomes: improved DEPRESSION Date Initiated: 11/20/16 Time Initiated: 11:50 Progress toward outcomes: improved
--- NOTE | 2016-11-20 16:06 | PCM.PYCHPN ---
Psychiatric Progress Note - Psychiatric Progress Note Patient seen today, length of contact: 30min Patient Chief Complaint: "I am much better today, thank you..." Medical Problems: Patient has multiple medical issues please see medical team notes for more detailed information. Patient had a thigh as well as buttock wound MRSA positive. currently patient is not contagious, on po antibiotics. medical team as well as ADD team as well as surgical team is following patient. Diagnostic Results: 11/13/16 07:00 11/13/16 08:01 Lab Results 11/14/16 11:03: POC Glucose (mg/dL) 154 H 11/14/16 06:15: POC Glucose (mg/dL) 116 H 11/13/16 21:39: POC Glucose (mg/dL) 138 H 11/13/16 16:00: POC Glucose (mg/dL) 112 H 11/13/16 08:01: RPR Nonreactive 11/13/16 08:01: Sodium 141, Potassium 4.8, Chloride 101, Carbon Dioxide 28, Anion Gap 17, BUN 13, Creatinine 0.9, Est GFR ( Amer) > 60, Est GFR (Non- Af Amer) > 60, Random Glucose 117 H, Calcium 9.3, Total Bilirubin 0.8, AST 29, ALT 33, Alkaline Phosphatase 55, Total Protein 7.8, Albumin 4.1, Globulin 3.7, Albumin/Globulin Ratio 1.1, Triglycerides 103, Cholesterol 166, LDL Cholesterol Direct 95, HDL Cholesterol 43 11/13/16 08:01: Free T4 1.27, TSH 3rd Generation 1.60 11/13/16 07:00: WBC 5.4, RBC 3.58, Hgb 11.2 L, Hct 34.5 L, MCV 96.4, MCH 31.3, MCHC 32.5, RDW 14.1, Plt Count 272, MPV 9.4 Vital Signs Temp Pulse Resp BP Pulse Ox 11/14/16 06:00 97.6 F 63 18 162/64 H 100 11/13/16 16:09 78 144/93 H 11/13/16 07:19 98.3 F 81 20 156/106 H Temp Pulse Resp BP Pulse Ox 97.8 F 85 20 121/92 H 97 11/20/16 07:00 11/20/16 07:00 11/20/16 07:00 11/20/16 07:00 11/20/16 07:00 DSM 5 Symptoms Update: Shortly patient is 36 year old male, self reported history of major depressive disorder as well as generalized anxiety disorder as well as social anxiety, patient was transferred from the medical side for evaluation of worsening of depressive symptoms, feeling of hopelessness, passive wish to be , inabilities to function, worsening of anxiety, patient does not have psychiatrist in the community, needs medication adjustment. Patient was seen at the ne team meetign. presented to be older than chronological age, pt was more optimistic, was smiling, pt said he feels better, asked about d/c tomorrow. MSE: Pt was alert, oriented in self, time and place. Pt presented very well today, looks older his chronological age, good personal hygiene, good ADLs, there is no psychomotor agitation or retardation, speech was: low volume, but normal tone quality and quantity , eye contact: intense, mood described: "I feel much better, may be medication started to kick in", affect: was flat, thought process : goal directed, thought content: denied SI/ HI, denied v/a/t hallucinations, denied paranoid ideation and pt does not appear to be internally preoccupied or responding to internal stimuli, insight: is fair, judgment:fair, impulses are well controlled. patient tolerates medications well, no side effects observed or reported, aims 0 , no EPS. Patient has strong dependent personality traits. As per staff patient is compliant with the medications, no acute issues. slept for 4-5 hours over night. Impression: Major depressive disorder Rule out adjustment disorder with depressed and anxious mood Rule out dependent personality disorder Rule out panic disorder with agoraphobia Rule out mood disorder and anxiety disorder due to general medical condition Plan: Milieu/structure/supportive therapy Medical consult appreciated, see medical team note for more detailed info SW consultation for discharge plan and social issues Med management Prozac 50 mg a day for depression and anxiety Klonopin 1 mg twice a day and 2 mg at the nighttime for anxiety Sonata 10 mg at the nighttime for insomnia Family involvement Follow up on labs Will monitor closely Pt was educated about risk/benefits and alternatives of medications, coping strategies (safety plan, suicide prevention), relapse prevention, importance of follow up with psychiatrist and therapist, stay away from drugs/alcohol/smoking Medication Change: No (klonopin increased) Medical Record Reviewed: Yes Consults ordered or reviewed: medical consult and f/u appreciated d/w surgical consult and f/u appreciated Mental Status Examination - Affect Affect: Flat Goal/Treatment Plan - Goal/Treatment Plan Need for Continued Stay: Severe depression anxiety, Discharge may exacerbated symptoms, Severe functional impairment Estimated Date of D/C: 11/21/16 (we'll monitor closely)
--- NOTE | 2016-11-20 19:49 | CP.PCM.CON ---
<GILBERTO BARNES - Last Filed: 11/20/16 19:57> History of Present Illness - History of Present Illness History of Present Illness: Gilberto Barnes PGY1 Medicine Consult Note for Dr. Weathers Mr Sanchez is a 36 year old male with past medical history of diabetes, hypertension, anxiety, and depression who is admitted to the psych unit for evaluation of depression. Prior to admission, the patient was admitted to the med-surg floors for the treatment of abscess located on the right interior thigh and the left buttox, which he states started out as pimples. medicine was consulted for medical clearance as well as antibiotic adjustment. The patient states then he has finished his course of Doxycycline and that he has been getting wound care treatments the latest being on Friday. The patient denies any fevers, nausea vomiting diarrhea, chest pain, abdominal pain, shortness of breath, cough, or any dysuria. PMD is Dr Brady and the patient states that his diabetes is well-managed, and that the last A1C that he recalls was 6.5. The patient states that he needs refills for both losartan and micronase. 10- point ROS was reviewed and otherwise unremarkable. SHx: former smoker x 19 years, 1-1.5ppd, quit 4 years ago; EtOH socially, no h/ o alcohol abuse; Denies recreational/IV drugs Review of Systems - Review of Systems All systems: reviewed and no additional remarkable complaints except (as per HPI ) Past Patient History - Infectious Disease Hx of Infectious Diseases: None - Past Medical History & Family History Past Medical History?: Yes - Past Social History Smoking Status: Former Smoker Alcohol: Social Drugs: Denies - CARDIAC Hx Cardiac Disorders: Yes Hx Hypertension: Yes (improved and had dosage reduced) - PULMONARY Hx Respiratory Disorders: Yes Hx Asthma: Yes - NEUROLOGICAL Hx Neurological Disorder: No - HEENT Hx HEENT Problems: Yes Other/Comment: pt wears glasses - RENAL Hx Chronic Kidney Disease: No - ENDOCRINE/METABOLIC Hx Endocrine Disorders: Yes Hx Diabetes Mellitus Type 2: Yes - HEMATOLOGICAL/ONCOLOGICAL Hx Blood Disorders: No - INTEGUMENTARY Hx Dermatological Problems: No - MUSCULOSKELETAL/RHEUMATOLOGICAL Hx Musculoskeletal Disorders: No Hx Falls: No - GASTROINTESTINAL Hx Gastrointestinal Disorders: No - GENITOURINARY/GYNECOLOGICAL Hx Genitourinary Disorders: No - PSYCHIATRIC Hx Anxiety: Yes Hx Depression: Yes Hx Substance Use: No - SURGICAL HISTORY Hx Surgeries: No - ANESTHESIA Hx Anesthesia: No Meds Home Medications: Home Medication List Medication Instructions Recorded Confirmed Type Clonazepam [Klonopin] 2 mg PO HS #14 tab 11/20/16 Rx FLUoxetine [Prozac] 10 mg PO DAILY #14 cap 11/20/16 Rx Fluoxetine HCl [Prozac] 40 mg PO DAILY #14 cap 11/20/16 Rx Zaleplon [Sonata] 10 mg PO HS #14 cap 11/20/16 Rx clonazePAM [Klonopin] 1 mg PO BID #30 tab 11/20/16 Rx Calcium Alginate [Restore] 1 each TP QID #14 bandage 11/21/16 Rx Allergies/Adverse Reactions: Allergies Allergy/AdvReac Type Severity Reaction Status Date / Time metformin AdvReac FEVER Verified 11/12/16 18:09 - Medications Medications: Current Medications Acetaminophen (Tylenol 325mg Tab) 650 mg PO Q4 PRN PRN Reason: Pain, Mild (1-3) Last Admin: 11/15/16 21:10 Dose: 650 mg Al Hydrox/Mg Hydrox/Simethicone (Maalox Plus 30 Ml) 30 ml PO DAILY PRN PRN Reason: Upset Stomach Alprazolam (Xanax) 0.5 mg PO QID PRN; Protocol PRN Reason: Anxiety Last Admin: 11/20/16 11:25 Dose: 0.5 mg Clonazepam (Klonopin) 1 mg PO BID GWENDOLYN PRN Reason: Protocol Last Admin: 11/20/16 16:58 Dose: 1 mg Clonazepam (Klonopin) 2 mg PO HS GWENDOLYN PRN Reason: Protocol Last Admin: 11/19/16 22:03 Dose: 2 mg Doxycycline Hyclate (Doryx) 100 mg PO Q12 GWENDOLYN PRN Reason: Protocol Last Admin: 11/20/16 17:02 Dose: 100 mg Fluoxetine HCl (Prozac) 50 mg PO DAILY GWENDOLYN Last Admin: 11/20/16 08:36 Dose: 50 mg Glyburide (Micronase) 2.5 mg PO BRK GWENDOLYN Last Admin: 11/20/16 08:56 Dose: Not Given Ibuprofen (Motrin Tab) 600 mg PO Q6H PRN PRN Reason: moderate pain Insulin Human Regular (Humulin R Low) 0 units SC ACHS GWENDOLYN PRN Reason: Protocol Last Admin: 11/20/16 16:52 Dose: Not Given Losartan Potassium (Cozaar) 100 mg PO DAILY [facility] Last Admin: 11/20/16 08:34 Dose: 100 mg Magnesium Hydroxide (Milk Of Magnesia) 30 ml PO DAILY PRN PRN Reason: Constipation Oxycodone/Acetaminophen (Percocet 5/325 Mg Tab) 1 tab PO Q6H PRN PRN Reason: Pain, severe (8-10) Stop: 11/22/16 13:49 Last Admin: 11/20/16 12:32 Dose: 1 tab Pantoprazole Sodium (Protonix Ec Tab) 40 mg PO 0600 [facility] Last Admin: 11/20/16 08:35 Dose: 40 mg Tramadol HCl (Ultram) 50 mg PO TID PRN PRN Reason: Pain, severe (8-10) Last Admin: 11/20/16 16:58 Dose: 50 mg Zaleplon (Sonata) 10 mg PO HS [facility] Last Admin: 11/19/16 22:03 Dose: 10 mg Physical Exam - Constitutional Appears: Well, No Acute Distress - Head Exam Head Exam: NORMAL INSPECTION - Eye Exam Eye Exam: EOMI, Normal appearance, PERRL - ENT Exam ENT Exam: Mucous Membranes Moist - Neck Exam Neck exam: Positive for: Normal Inspection - Respiratory Exam Respiratory Exam: Clear to Auscultation Bilateral, NORMAL BREATHING PATTERN. absent: Wheezes - Cardiovascular Exam Cardiovascular Exam: RRR, +S1, +S2 - GI/Abdominal Exam GI & Abdominal Exam: Normal Bowel Sounds, Soft. absent: Distended, Tenderness - Extremities Exam Extremities exam: Positive for: full ROM, normal inspection - Back Exam Back exam: NORMAL INSPECTION. absent: CVA tenderness (L), CVA tenderness (R) - Neurological Exam Neurological exam: Alert, Oriented x3 - Psychiatric Exam Psychiatric exam: Flat Affect - Skin Skin Exam: Normal Color, Warm Additional comments: dressings on R medial thigh and medial L buttox both c/d/i pimple palpated under the dressing not painful to palpation other lesions noted on R thigh and L hidalgo from prior abscesses Results - Vital Signs Recent Vital Signs: Last Vital Signs Temp 97.8 F 11/20/16 07:00 Pulse 85 11/20/16 07:00 Resp 20 11/20/16 07:00 BP 121/92 H 11/20/16 07:00 Pulse Ox 97 11/20/16 07:00 - Labs Result Diagrams: 11/13/16 07:00 11/13/16 08:01 Labs: Laboratory Results - last 24 hr 11/19/16 11/20/16 11/20/16 21:34 06:36 11:27 POC Glucose (mg/dL) 101 133 H 143 H 11/20/16 16:25 POC Glucose (mg/dL) 106 Assessment & Plan - Assessment and Plan (Free Text) Assessment: 36 year old male with past medical history of diabetes, hypertension, anxiety, and depression who is admitted to the psych unit for evaluation of depression. Prior to admission, the patient was admitted to the med-surg floors for the treatment of abscess located on the right interior thigh and the left buttox. medicine was consulted for medical clearance as well as antibiotic adjustment. Pt has 2 abscesses that are dressed and is s/p 7 days Doxy 1. Abscesses - pt is afebrile and WBC not elevated - continue wound care - Doxycycline started - on d/c, pt should receive the wound cleaning supples so he'll be able to change his dressings and clean the wounds appropriately 2. Hx HTN - prescribed Losartan home dose - BP stable - continue to monitor 3. Hx DM2 - prescribed glyburide home dose - FS stable - continue to monitor 4. Depression and anxiety - continue tx per psych team Dispo: pt should f/u Dr. Aly after d/c for ongoing medical management Will sign off patient for now. If needed, please re-consult Thank you Gilberto Barnes PGY1 Dr. Weathers, Attending Physician - Date & Time Date: 11/20/16 Time: 11:30 <Wade Weathers - Last Filed: 11/21/16 12:36> Results - Vital Signs Recent Vital Signs: Last Vital Signs Temp 97.4 F L 11/21/16 08:02 Pulse 75 11/21/16 08:02 Resp 16 11/21/16 08:02 BP 122/88 11/21/16 08:02 Pulse Ox 97 11/20/16 07:00 - Labs Result Diagrams: 11/13/16 07:00 11/13/16 08:01 Labs: Laboratory Results - last 24 hr 11/20/16 11/20/16 11/21/16 16:25 21:31 06:55 POC Glucose (mg/dL) 106 143 H 107 11/21/16 11:01 POC Glucose (mg/dL) 107 Attending/Attestation - Attestation I have personally seen and examined this patient.: Yes I have fully participated in the care of the patient.: Yes I have reviewed all pertinent clinical information: Yes Notes (Text): 11/21/16 12:34 Attending note; Patient seen and examined with resident in psych floor. Patient is a 36 year old male with history of DM-2, HTN, anxiety, depression, agoraphobia who was admitted for evaluation of skin ulcers in the right thigh and left buttock.Wound culture is positive for MRSA. Treated with IV vancomycin . Complete po doxycyine. Contact isolation explained to the patient in detail. Hand washing technique explained. The patient was seen by surgery Dr. Lizama's team. continue optifoam dressing once in 3 days. Wound care nurse evaluation ordered. supplies will be given upon discharge. nurse informed. Hypertension; continue Cozaar. Diabetes; Continue Micronase. Pain management with tramadol. prescription will be delivered from [facility] pharmacy. Upon discharge patient will follow up with .
[2016-11-21] MEDS: Oxycodone/Acetaminophen 5/325 mg Tab PO PRN ×2 (03:59→10:08)
[2016-11-21] MEDS: Pantoprazole 40 mg EC Tab PO SCH (06:52)
--- NOTE | 2016-11-21 07:26 | PCM.BM ---
Treatment Plan Problems - Problems identified on initial assessmt ANXIETY Date Initiated: 11/12/16 Time Initiated: 11:50 Assessment reference: NA Status: Active Priority: 1 DEPRESSION Date Initiated: 11/12/16 Time Initiated: 11:50 Assessment reference: NA Status: Active Priority: 2 Treatment assets and liabiliti Patient Assests: cooperative, ADL independent, good support system, cognitively intact Patient Liabilities: physical pain, financial problems - Diagnosis (1) MDD (major depressive disorder) Status: Acute Interventions: 11/13/16 08:52 Psychoeducation Psychopharmacology/adjustment of medications as needed/ monitoring possible side effects Evaluate pt on daily basis Compliance with medications and follow up appointments Suicide and homicide risk assessment and prevention Relapse prevention Reduction of symptoms Improve functional status Family involvement As outpatient: cognitive behavioral therapy pt is doing much better, more hopeful, compliant with meds, denied thoughts of harming self or others. 11/21/16 07:24 (2) HORACIO (generalized anxiety disorder) Status: Acute Interventions: 11/13/16 08:52 Psychoeducation Psychopharmacology/adjustment of medications as needed/ monitoring possible side effects Evaluate pt on daily basis Compliance with medications and follow up appointments Suicide and homicide risk assessment and prevention, coping strategies, safety plan Reduction of symptoms Relaxation techniques and breathing exercises Improve functional status Family involvement As outpatient: cognitive behavioral therapy pt is doing much better, less anxious 11/21/16 07:24 (3) Panic disorder with agoraphobia Status: Acute Interventions: 11/13/16 08:53 anxiety is much better, pt is more social tolerates meds well pt was educated about CBT and relaxation and breathing exercises (4) Mood disorder due to a general medical condition Status: Acute Interventions: 11/13/16 08:53 Pt will be seen by medical team as needed Medications will be confirmed and resumed Additional consultation by specialists as needed Lab work as needed (CBC, CMP, TSH, free T4, UA, Urine test for females as needed) CXR as needed EKG Physical therapy valuation as needed from the medical standpoint pt is doing much better pt was seen by medical/surgical team pt is on abx, pain meds sleeps better wounds are healing well pt is aware of his meds and f/u appts 11/21/16 07:25 - Milieu Protocol Maintain good personal hygiene: daily Encourage regular showers, daily Remind patient to perform daily oral care, daily Assist patient to perform ADL's Maintain personal safety: every shift Educate patient to report safety concerns to staff, every shift Monitor environment for contraband/sharps Medication safety: Monitor for expected outcome, potential side effects: every shift, Assess barriers to learning: every shift, Assess readiness for medication education: every shift Milieu Narrative: milieu, structure, supportive therapy Prozac 50 mg a day for depression and anxiety Klonopin 1 mg twice a day and 1 mg at the nighttime for anxiety Sonata 10 mg at the nighttime for insomnia Medical team evaluation, will f/u on pt 11/19/16 surgical f/u therapeutic program worker evaluation Family involvement we will monitor patient closely Family Contact Family contact: Patient agrees to contact Family contacted how many times per week?: 2 Discharge/Continuing Care - Education Needs Education Needs: Patient Medication, Patient Diagnosis/Disease Process, Patient Coping Skills, Patient Community resources, Patient Activities of Daily Living, Patient Pain, Patient Health Practices/Safety, Patient Personal Hygiene/Grooming , Patient Aftercare Safety Plan - Discharge Discharge Criteria: Tolerates medication w/o severe side effects, Free of Suicidal thoughts, Free of agitation, Normal sleep pattern - Treatment Team Participation Patient/Family/SO Statement: milieu, structure, supportive therapy Prozac 50 mg a day for depression and anxiety Klonopin 1 mg twice a day and 1 mg at the nighttime for anxiety Sonata 10 mg at the nighttime for insomnia Medical team evaluation, will f/u on pt 11/19/16 surgical f/u therapeutic program worker evaluation Family involvement we will monitor patient closely Treatment Plan Review - Problem ANXIETY Date Initiated: 11/20/16 Time Initiated: 11:50 Progress toward outcomes: improved DEPRESSION Date Initiated: 11/20/16 Time Initiated: 11:50 Progress toward outcomes: improved
[2016-11-21 08:03] VITALS: BP 122/88; PULSE 75; RESP 16; TEMP 97.4
[2016-11-21] MEDS: Insulin Reg-LOW-Coverage SC SCH ×2 (08:27→11:16)
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
== END 2016-11-21 12:00 | disposition home or self-care (01) | DRG 426 ==
LOC: PSYC 15:17
PROVIDERS: ADMIT Psychiatry & Neurology Psychiatry; ATTEND Psychiatry & Neurology Psychiatry
DX: F32.9 Major depressive disorder, single episode, unspecified (principal); L02.415 Cutaneous abscess of right lower limb; I10 Essential (primary) hypertension; E11.9 Type 2 diabetes mellitus without complications; F41.1 Generalized anxiety disorder; F06.30 Mood disorder due to known physiological condition, unspecified; B95.62 Methicillin resistant Staphylococcus aureus infection as the cause of diseases classified elsewhere; F40.01 Agoraphobia with panic disorder; F41.8 Other specified anxiety disorders; G89.29 Other chronic pain; J45.909 Unspecified asthma, uncomplicated; Z59.0 Homelessness; Z79.899 Other long term (current) drug therapy; Z82.3 Family history of stroke; Z82.49 Family history of ischemic heart disease and other diseases of the circulatory system; Z83.3 Family history of diabetes mellitus; Z87.891 Personal history of nicotine dependence; Z88.8 Allergy status to other drugs, medicaments and biological substances; S30.91XA Unspecified superficial injury of lower back and pelvis, initial encounter; G47.00 Insomnia, unspecified